=== PATIENT | female | born 1995 | race Caucasian/White ===

== ENCOUNTER 2017-08-09 10:47 | Emergency (ER) | payer OTHER ==
[~2017-08-09] VITALS: Ht 162.6 cm; Wt 66.5 kg
[2017-08-09 10:50] VITALS: TEMP 36.8; Ht 162.6 cm; Wt 66.5 kg
[2017-08-09] MEDS ORDERED: SODIUM CHLORIDE 0.9% 1000ML 500 ML IV ONE (11:00)
[2017-08-09] MEDS ORDERED: ONDANSETRON INJ 2 MG/ML 2 ML VIAL IV STA ×3 (11:00→12:37)
[2017-08-09] MEDS ORDERED: FENTANYL CITRATE INJ 50 MCG/1 ML 2 ML VIAL IV STA ×2 (11:10→12:50)
[2017-08-09] MEDS ORDERED: KETOROLAC TROMETHAMINE 30 MG/ML VIAL IV STA (11:10)
[2017-08-09 11:35] LABS: HEMATOCRIT 36.7 % (37-47); MEAN CELL VOLUME 84.4 fL (80-100); MEAN CORPUSCULAR HEMOGLOBIN 30.3 pg (25-34); PLATELET COUNT 293 K/uL (130-400); RED BLOOD COUNT 4.35 M/uL (4.2-5.4); WHITE BLOOD COUNT 10.56 K/uL (4.8-10.8)
[2017-08-09 11:52] LABS: BUN/CREATININE RATIO 14.3 (10-20); CALCIUM 10.1 mg/dl (8.5-10.1); CREATININE 0.82 mg/dl (0.60-1.20); POTASSIUM 3.6 mmol/L (3.5-5.1)
[2017-08-09 12:02] LABS: PREG INTERNAL NEGATIVE QC NEG CLEAR BACKGROUND; PREG INTERNAL POSITIVE QC POS CONTROL LINE
--- NOTE | 2017-08-09 12:14 | DIAGNOSTIC IMAGING REPORT ---
ABD/PELVIS WITHOUT FOR STONE HISTORY: 22 years-old Female flank pain acute right-sided flank pain with history of kidney stones. COMPARISON: None available. TECHNIQUE: Multiple axial CT images of the abdomen and pelvis were obtained without IV contrast utilizing kidney stone protocol. A dose lowering technique was used consistent with the principals of KIM. FINDINGS: Imaged lung bases are clear. No pneumoperitoneum identified. Imaged inferior cardiac chambers are unremarkable. There is a focal 1.1 x 1.1 cm area of low-attenuation noted involving the medial left hepatic lobe adjacent to the falciform ligament suggesting cyst or alternatively focal fatty infiltration. The spleen, gallbladder, pancreas and adrenal glands are within normal limits. Kidneys, ureters and urinary bladder are within normal limits. Uterus is unremarkable. Mildly complex 2.4 x 1.9 cm structure of the right adnexum may reflect a involuting follicle. No renal calculi or hydronephrosis identified. The abdominal aorta is normal in both course and caliber. No bulky retroperitoneal adenopathy identified. There is no bowel obstruction or focal bowel wall thickening identified. Moderate stool burden of the rectosigmoid. No evidence of acute appendicitis. Soft tissues are unremarkable. Bones appear intact. IMPRESSION: 1. 2.4 x 1.9 cm mildly complex structure of the right adnexum suggests an involuting follicle. 2. No evidence of acute appendicitis, renal calculi or hydronephrosis. The above report was generated using voice recognition software. It may contain grammatical, syntax or spelling errors. Electronically signed by: Darion Figueroa M.D. 08/09/2017 12:12 PM Dictated Date/Time: 08/09/2017 12:06 PM
[2017-08-09] MEDS ORDERED: SERT-234 PO (12:25)
[2017-08-09] MEDS ORDERED: BUSP15TA70 PO (12:25)
[2017-08-09 13:37] LABS: URINE APPEARANCE CLEAR (CLEAR); URINE BILIRUBIN NEG (NEG); URINE COLOR DK YELLOW; URINE EPITHELIAL CELL AUTO >30 /lpf (0-5); URINE NITRITE NEG (NEG); URINE PH >= 9.0 (4.5-7.5); URINE SPECIFIC GRAVITY 1.027 (1.000-1.030); UROBILINOGEN NEG (NEG); ZZUR CULT IF INDIC CLEAN CATCH NO
[2017-08-09 14:03] LABS: SULFASALICYLIC ACID NEG (NEG)
[2017-08-09 14:24] LABS: BENZODIAZEPINE, URINE POS (NEG); COCAINE,URINE NEG (NEG); PHENCYCLIDINE, URINE NEG (NEG)
[2017-08-09 14:51] LABS: MANUAL MICROSCOPIC REQUIRED? NO; REVIEW REQ? NO
[2017-08-09 15:23] VITALS: BP 127/94; PULSE 89; O2SAT 99
--- NOTE | 2017-08-09 15:29 | EMERGENCY ROOM VISIT NOTE ---
History Report prepared by Matheus: Devorah Russell Under the Supervision of: Dr. Charli Sterling D.O. First contact with patient: 11:07 Chief Complaint: KIDNEY STONE Stated Complaint: POSSIBLE KIDNEY STONE History of Present Illness The patient is a 22 year old female who presents to the Emergency Room with complaints of worsening right flank pain beginning last night. The patient has a history of kidney stones and states that this feels like her previous stones. Her most recent kidney stone was 1 month ago. The patient states that last night she developed right-sided flank pain. She rates her current pain as a 10/ 10 in severity. She is also complaining of nausea and vomiting. Mother states that the patient has "felt off" for the past couple of days. The patient is currently having her period, prior to that her LNMP was 1 month ago. Source of History: patient Onset: last night Position: other (right flank) Symptom Intensity: 10/10 Timing: worsening Associated Symptoms: + nausea, + vomiting Review of Systems See HPI for pertinent positives & negatives. A total of 10 systems reviewed and were otherwise negative. Past Medical & Surgical Medical Problems: (1) Hx of ectopic (2) Kidney stones Family History Cancer Diabetes mellitus Gallbladder disease Heart disease Hypertension Kidney disease Kidney stones Social History Smoking Status: Current Every Day Smoker Alcohol Use: none Drug Use: other Marital Status: single Housing Status: lives with family Occupation Status: unemployed Current/Historical Medications Scheduled Buspirone Hcl (Buspar), 15 MG PO BID Sertraline (Zoloft), 100 MG PO DAILY Allergies Coded Allergies: No Known Allergies (Unverified , 08/09/17) Physical Exam Vital Signs Date Time Temp Pulse Resp B/P (MAP) Pulse Ox O2 Delivery O2 Flow Rate FiO2 08/09/17 12:40 84 16 131/82 100 Room Air 08/09/17 10:50 36.8 117 22 145/36 99 Room Air Physical Exam CONSTITUTIONAL/VITAL SIGNS: Reviewed / noted above. GENERAL: Non-toxic in appearance. Expresses pain and is upset that the pain medication already provided is only making her tired but not helping her pain. INTEGUMENTARY: Warm, dry, and [place]. HEAD: Normocephalic. EYES: without scleral icterus or trauma. ENT/OROPHARYNX: clear and moist. LYMPHADENOPATHY/NECK: Is supple without lymphadenopathy or meningismus. RESPIRATORY: Lungs clear and equal. CARDIOVASCULAR: Regular rate and rhythm. GI/ABDOMEN: Soft and nontender. No organomegaly or pulsatile mass. No rebound or guarding. Normal bowel sounds. EXTREMITIES: Warm and well perfused. BACK: No CVA tenderness. NEUROLOGICAL: Intact without focal deficits. PSYCHIATRIC: normal affect. MUSCULOSKELETAL: Normally developed with good muscle tone. Medical Decision & Procedures ER Provider Diagnostic Interpretation: Radiology results as stated below per my review and radiologist interpretation: ABD/PELVIS WITHOUT FOR STONE HISTORY: 22 years-old Female flank pain acute right-sided flank pain with history of kidney stones. COMPARISON: None available. TECHNIQUE: Multiple axial CT images of the abdomen and pelvis were obtained without IV contrast utilizing kidney stone protocol. A dose lowering technique was used consistent with the principals of KIM. FINDINGS: Imaged lung bases are clear. No pneumoperitoneum identified. Imaged inferior cardiac chambers are unremarkable. There is a focal 1.1 x 1.1 cm area of low-attenuation noted involving the medial left hepatic lobe adjacent to the falciform ligament suggesting cyst or alternatively focal fatty infiltration. The spleen, gallbladder, pancreas and adrenal glands are within normal limits. Kidneys, ureters and urinary bladder are within normal limits. Uterus is unremarkable. Mildly complex 2.4 x 1.9 cm structure of the right adnexum may reflect a involuting follicle. No renal calculi or hydronephrosis identified. The abdominal aorta is normal in both course and caliber. No bulky retroperitoneal adenopathy identified. There is no bowel obstruction or focal bowel wall thickening identified. Moderate stool burden of the rectosigmoid. No evidence of acute appendicitis. Soft tissues are unremarkable. Bones appear intact. IMPRESSION: 1. 2.4 x 1.9 cm mildly complex structure of the right adnexum suggests an involuting follicle. 2. No evidence of acute appendicitis, renal calculi or hydronephrosis. The above report was generated using voice recognition software. It may contain grammatical, syntax or spelling errors. Electronically signed by: Darion Figueroa M.D. 08/09/2017 12:12 PM Dictated Date/Time: 08/09/2017 12:06 PM Laboratory Results 08/09/17 11:05 08/09/17 11:05 Test 08/09/17 11:05 08/09/17 12:40 08/09/17 14:35 Red Blood Count 4.35 M/uL (4.2-5.4) Mean Corpuscular Volume 84.4 fL (80-100) Mean Corpuscular Hemoglobin 30.3 pg (25-34) Mean Corpuscular Hemoglobin Concent 36.0 g/dl (32-36) RDW Standard Deviation 40.4 fL (36.4-46.3) RDW Coefficient of Variation 13.2 % (11.5-14.5) Mean Platelet Volume 10.0 fL (7.4-10.4) Anion Gap 12.0 mmol/L (3-11) Est Creatinine Clear Calc Drug Dose 100.1 ml/min Estimated GFR () 116.9 Estimated GFR (Non- 100.9 BUN/Creatinine Ratio 14.3 (10-20) Calcium Level 10.1 mg/dl (8.5-10.1) Human Chorionic Gonadotropin, Qual NEG (NEG) Urine Color DK YELLOW Urine Appearance CLEAR (CLEAR) Urine pH >= 9.0 (4.5-7.5) Urine Specific [place] 1.027 (1.000-1.030) Urine Protein NEG (NEG) Urine Glucose (UA) TRACE (NEG) Urine Ketones 4+ (NEG) Urine Occult Blood NEG (NEG) Urine Nitrite NEG (NEG) Urine Bilirubin NEG (NEG) Urine Urobilinogen NEG (NEG) Urine Leukocyte Esterase NEG (NEG) Urine WBC (Auto) 1-5 /hpf (0-5) Urine RBC (Auto) 0-4 /hpf (0-4) Urine Hyaline Casts (Auto) 1-5 /lpf (0-5) Urine Epithelial Cells (Auto) >30 /lpf (0-5) Urine Bacteria (Auto) NEG (NEG) Urine Opiates Screen NEG (NEG) Urine Methadone, Qualitative NEG (NEG) Urine Barbiturates NEG (NEG) Urine Phencyclidine (PCP) Level NEG (NEG) Ur Amphetamine/Methamphetamine NEG (NEG) MDMA (Ecstasy) Screen NEG (NEG) Urine Benzodiazepines Screen POS (NEG) Urine Cocaine Metabolite NEG (NEG) Urine Marijuana (THC) NEG (NEG) Ethyl Alcohol mg/dL < 3.0 mg/dl (0-3) Laboratory results as stated above per my review. Medications Administered Medications (Trade) Dose Ordered Sig/Thuan Route Start Time Stop Time Status Last Admin Dose Admin Sodium Chloride 500 ml @ 999 mls/hr Q31M ONCE IV 08/09/17 11:00 08/09/17 11:30 DC 08/09/17 11:00 999 MLS/HR Ondansetron HCl (Zofran Inj) 4 mg NOW STAT IV 08/09/17 11:00 08/09/17 11:03 DC 08/09/17 11:09 4 MG Fentanyl Citrate (Fentanyl Inj) 100 mcg NOW STAT IV 08/09/17 11:10 08/09/17 11:16 DC 08/09/17 11:24 100 MCG Ketorolac Tromethamine (Toradol Inj) 30 mg NOW STAT IV 08/09/17 11:10 08/09/17 11:16 DC 08/09/17 11:24 30 MG Ondansetron HCl (Zofran Inj) 4 mg NOW STAT IV 08/09/17 12:37 08/09/17 12:38 DC 08/09/17 12:38 4 MG Fentanyl Citrate (Fentanyl Inj) 50 mcg NOW STAT IV 08/09/17 12:50 08/09/17 12:51 DC 08/09/17 13:07 50 MCG ED Course 1107: Previous medical records were reviewed. The patient was evaluated in room C5. A complete history and physical examination was performed. 1110: Toradol 30 mg IV, Zofran 4 mg IV, Fentanyl 100 mcg IV 1125: I reassessed the patient at this time. She has had some relief with the medications. 1237: Zofran 4 mg IV 1244: I reassessed the patient and she is still having pain. She gave a urine sample. 1250: Fentanyl 50 mcg IV 1421: The patient is making suicidal statements and saying she is going to kill herself. 1423: I reevaluated the patient. She is very upset. I discussed the need for a mental health evaluation with the patient and her mother. She was relocated to room A7. 1500: The patient was signed out to Dr. Stahl at the change of shift. Medical Decision Differential considered: pancreatitis, hepatitis, or acute cholecystitis, AAA, UTI, pyelonephritis, kidney stones, appendicitis, diverticulitis, shingles, bowel obstruction mesenteric ischemia, intussusception, hernia, ovarian torsion , ruptured ovarian cyst, ectopic , . This is a 22-year-old female who presents to the ED with a chief complaint of right-sided flank pain. The patient states that her symptoms started overnight. It was associated with some nausea. The patient's currently on her last menstrual period. She recently moved to the area from [facility]. Although the history was not provided early in the patient's course, it was discovered that the patient has a history of Percocet abuse and has been to [facility] in [place]. The patient did not disclose this information earlier. She also did not disclose that she has an issue with cannabis related hyperemesis. She has been living with her mother for the past several weeks and has been clean. She sees Dr. Echols from psychiatry locally. She also sees Dr. Mejias and is involved with Alcoholics Anonymous. All this information was discovered toward the latter part of her stay. The patient was treated initially with IV Toradol, IV fluids, IV Zofran, IV Compazine and IV fentanyl. CT scan of the abdomen and pelvis reveals an involutional follicle. There is no kidney stone. This is likely not the cause for her pain. She is on her menstrual period. test was negative. Urine did not show infection. There was 4+ ketones. PRP is normal and CBC is normal. Urine tox screen is positive for benzos. The patient is currently on Xanax. The patient received a total of 1 L normal saline IV, 2 doses of IV fentanyl dose of IV Toradol. She was told the results. The patient wanted to take showers frequently during her ED stay. She took 2 showers and wanted to take some more. She states that this helps with her symptoms. The mother states that she does this is home as well. Because she was not allowed to do this more than twice, she stated that she wanted to kill herself and just wanted to . Because of this, she was moved to the mental health area and evaluated by myself for mental health reasons as well as the [facility] oil distributor. The patient denied being suicidal. She states that she just said this because she was angry. The mother also reported the patient has not been expressing any depression or suicidal ideation and has been doing well with regards to staying clean. The mother feels very comfortable taking the patient home and does not feel the patient is suicidal. After mental health evaluation , she denied everything and is currently not suicidal. She states that she said when she said because she was upset and angry. The patient's mother states that she could get the patient into see Dr. Echols tomorrow. She feels comfortable taking her home. The patient wants to go home as well. The patient was discharged. I would not recommend future narcotics for this patient. Medication Reconcilliation Current Medication List: was personally reviewed by me Blood Pressure Screening Patient's blood pressure: Normal blood pressure Impression Primary Impression: Right flank pain Additional Impression: Drug-seeking behavior Scribe Attestation The scribe's documentation has been prepared under my direction and personally reviewed by me in its entirety. I confirm that the note above accurately reflects all work, treatment, procedures, and medical decision making performed by me. Departure Information Dispostion Home / Self-Care Referrals No Doctor, Assigned (PCP) Patient Instructions My [facility] Additional Instructions Follow-up with your doctor for further care and evaluation in 1-2 days. Return to the emergency department for worsening or new symptoms or any concerns. You have been examined and treated today on an emergency basis only. This is not a substitute for, or an effort to provide, complete comprehensive medical care. It is impossible to recognize and treat all injuries or illnesses in a single emergency department visit. It is therefore important that you follow up closely with your doctor. Call as soon as possible for an appointment. Follow-up with your psychiatrist tomorrow. Problem Qualifiers
[2017-08-12 12:50] LABS: HYDROXYETHYLFLURAZEPAM CONF NEGATIVE NG/ML (CUTOFF=50); HYDROXYMIDAZOLAM NEGATIVE NG/ML (CUTOFF=50); HYDROXYTRIAZOLAM CONF NEGATIVE NG/ML (CUTOFF=50); TEMAZEPAM CONF NEGATIVE NG/ML (CUTOFF=50)
== END 2017-08-09 15:34 | disposition home or self-care (01) ==
LOC: C.EDB 10:49 → C.EDA 15:34
DX: R10.9 Unspecified abdominal pain (principal); Z72.89 Other problems related to lifestyle; R11.2 Nausea with vomiting, unspecified; Z79.899 Other long term (current) drug therapy; Z87.442 Personal history of urinary calculi; Z82.49 Family history of ischemic heart disease and other diseases of the circulatory system; Z83.3 Family history of diabetes mellitus; Z83.79 Family history of other diseases of the digestive system; Z84.1 Family history of disorders of kidney and ureter; F17.200 Nicotine dependence, unspecified, uncomplicated

== ENCOUNTER 2017-08-10 21:10 | Emergency (ER) | payer OTHER ==
[~2017-08-10] VITALS: Ht 162.6 cm; Wt 59.0 kg
[~2017-08-10 21:10] MED LIST: BUSP15TA70 PO; SERT-234 PO
[2017-08-10 21:17] VITALS: TEMP 36.8; O2SAT 98; Ht 162.6 cm; Wt 59.0 kg
[2017-08-10] MEDS ORDERED: PROCHLORPERAZINE 5 MG/ML 2 ML VIAL IV STA (22:00)
[2017-08-10] MEDS ORDERED: DiphenhydrAMINE HCL 50 MG/ML VIAL IV STA ×2 (22:00→23:45)
[2017-08-10] MEDS ORDERED: KETOROLAC TROMETHAMINE 30 MG/ML VIAL IV STA (22:00)
[2017-08-10] MEDS ORDERED: SODIUM CHLORIDE 0.9% 1000ML 1,000 ML IV ONE (22:00)
[2017-08-10 22:48] LABS: BASO % 0.2 %; BASO ABS # 0.02 K/uL (0-0.2); COMPLETE YES; HEMATOCRIT 40.3 % (37-47); IG% 0.2 %; LYMPH % 17.8 %; LYMPH ABS # 1.75 K/uL (1.2-3.4); MEAN CELL VOLUME 84.7 fL (80-100); MEAN CORPUSCULAR HEMOGLOBIN 28.4 pg (25-34); MEAN CORPUSCULAR HGB CONC 33.5 g/dl (32-36); MEAN PLATELET VOLUME 9.5 fL (7.4-10.4); MONO % 5.8 %; PLATELET COUNT 309 K/uL (130-400); RED BLOOD COUNT 4.76 M/uL (4.2-5.4); WHITE BLOOD COUNT 9.81 K/uL (4.8-10.8)
[2017-08-10 23:10] LABS: ACETAMINOPHEN < 2 ug/ml (10-30); BUN/CREATININE RATIO 10.8 (10-20); CALCIUM 9.9 mg/dl (8.5-10.1); CREATININE 1.1 mg/dl (0.60-1.20); POTASSIUM 2.8 mmol/L (3.5-5.1)
[2017-08-10 23:13] LABS: POINT OF CARE TROPONIN I < 0.030 ng/ml (0-0.045)
[2017-08-10 23:22] LABS: ALB/GLOB RATIO 1.2 (0.9-2); THYROID STIMULATING HORMONE 1.37 uIu/ml (0.300-4.500)
[2017-08-10] MEDS ORDERED: POTASSIUM CHLR 20 MEQ / WTR 20 MEQ in PREMIXED WATER 100 ML IV STA (23:31)
[2017-08-10] MEDS ORDERED: POTASSIUM CHLORIDE 10 MEQ / 100ML WTR IV STA (23:37)
[2017-08-11 00:34] LABS: URINE APPEARANCE TURBID (CLEAR); URINE BILIRUBIN NEG (NEG); URINE COLOR DK YELLOW; URINE EPITHELIAL CELL AUTO >30 /lpf (0-5); URINE NITRITE NEG (NEG); URINE PH 5.5 (4.5-7.5); UROBILINOGEN NEG (NEG); ZZUR CULT IF INDIC CLEAN CATCH NO
[2017-08-11 00:38] LABS: MANUAL MICROSCOPIC REQUIRED? NO; REVIEW REQ? YES
[2017-08-11 00:52] LABS: URINE MUCUS PRESENT (NONE PRSENT)
[2017-08-11 00:58] LABS: BENZODIAZEPINE, URINE POS (NEG); COCAINE,URINE NEG (NEG); PHENCYCLIDINE, URINE NEG (NEG)
[2017-08-11 02:52] VITALS: BP 129/86; PULSE 90; O2SAT 98
--- NOTE | 2017-08-11 05:15 | DIAGNOSTIC IMAGING REPORT ---
CHEST ONE VIEW PORTABLE CLINICAL HISTORY: 22 years-old Female presenting with Chest pain. TECHNIQUE: Portable upright AP view of the chest was obtained. COMPARISON: None. FINDINGS: Cardiomediastinal silhouette normal. Lungs and pleural spaces clear. Osseous structures normal. Upper abdomen normal. IMPRESSION: 1. No acute cardiopulmonary disease. Electronically signed by: Zuhair Telles M.D. 08/11/2017 5:14 AM Dictated Date/Time: 08/11/2017 5:13 AM
--- NOTE | 2017-08-11 22:38 | EMERGENCY ROOM VISIT NOTE ---
History First contact with patient: 21:32 Chief Complaint: CHEST PAIN Stated Complaint: CHEST PAIN Nursing Triage Summary: pt presents to B8 with mother. pt yelling "help me, mommy, please someone help me." pt restless in bed, rolling around, tearful. pt c/o midsternal chest pain and tightness that is worse with a deep breath. mother reports pt was seen here in ED yesterday and had workup including chest CT, and "everything was okay." pt saw psychiatrist today and was perscribed valium, "they thought that might help with the chest tightness." mother states pt has a hx of kidney stones, anxiety, depression, and "caniboid syndrome. she's allergic to marijuana, but she tested clean yesterday, she's not using. she's staying with us, she's been doing okay. " mother reports pt began with pain on sunday. pt also c/o feeling of "something stuck in my throat." pt making herself vomit by sticking fingers down throat. History of Present Illness The patient is a 22 year old female who presents to the Emergency Room with complaints of chest pain symptoms for the past 2-3 days. The patient states that the pain is midsternal and worsens with deep breathing. The patient was seen and evaluated yesterday in this department with similar symptoms. She had an extensive evaluation with no significant findings. The patient has a history of polypharmacy drug abuse and mental health disease. She saw a psychiatrist today and was evidently given a prescription for Valium. The patient attempted this medication without relief. She states that the only thing that makes her feel better is when she stands in a hot shower for 5 minutes, and then cold water for 5 minutes. This is effective for a very short interval, and according to the patient's mother has caused the patient to be showering upwards of 30 times per day. The patient admits to smoking marijuana in the past, but not recently. She is currently under the care of Alcoholics Anonymous and has not been drinking. Patient is considered otherwise healthy. She rates her discomfort a 10/10. Review of Systems More than 10 systems were reviewed and otherwise negative with the exception of history of present illness. Past Medical/Surgical History Medical Problems: (1) Hx of ectopic (2) Kidney stones Family History Cancer Diabetes mellitus Gallbladder disease Heart disease Hypertension Kidney disease Kidney stones Social History Smoking Status: Current Every Day Smoker Alcohol Use: none Drug Use: other Marital Status: single Housing Status: lives with family Occupation Status: unemployed Current/Historical Medications Scheduled Buspirone Hcl (Buspar), 15 MG PO BID Sertraline (Zoloft), 100 MG PO DAILY Physical Exam Vital Signs Date Time Temp Pulse Resp B/P (MAP) Pulse Ox O2 Delivery O2 Flow Rate FiO2 08/11/17 02:52 90 22 129/86 98 Room Air 08/11/17 02:25 99 22 136/80 97 Room Air 08/11/17 00:30 103 24 139/82 96 Room Air 08/10/17 22:37 103 18 117/80 100 Room Air 08/10/17 21:25 Room Air 08/10/17 21:17 98 T-piece 08/10/17 21:17 98 Room Air 08/10/17 21:17 36.8 123 20 145/87 98 Room Air Physical Exam VITALS: Vitals are noted on the nurse's note and reviewed by myself. Vital signs stable. GENERAL: Except for anxious white female who is acting child-like in the emergency department. She is mildly cooperative with the examination. EARS: External ear normal. External auditory canals clear, tympanic membranes pearly bass without erythema or effusion bilaterally. EYES: Pupils equal round and reactive to light and accommodation. Conjunctivae without injection, sclerae without icterus. Extraocular movements intact. NOSE: Patent, turbinates without inflammation or discharge. MOUTH: Mucous membranes moist. Tonsils are not enlarged. Pharynx without erythema, blood, or exudate. Uvula midline. Airway patent. NECK: Supple without nuchal rigidity. No lymphadenopathy. No thyromegaly. Cervical spine is nontender. HEART: Regular rate and rhythm without murmurs gallops or rubs. LUNGS: Clear to auscultation bilaterally without wheezes, rales or rhonchi. No retractions or accessory muscle use. CHEST WALL: Light palpation of the anterior chest wall causes exaggerated withdrawal response from the patient. ABDOMEN: Positive normal bowel sounds x 4. Firm auscultation of the abdomen does not elicit a tenderness response. Light palpation causes the patient to guard throughout limiting the examination. MUSCULOSKELETAL: No muscle atrophy, erythema, or edema noted. Full range of motion without joint tenderness in all extremities. NEURO: Patient was alert and oriented to person place and time. CN II through XII grossly intact. Medical Decision & Procedures ER Provider Diagnostic Interpretation: CHEST ONE VIEW PORTABLE CLINICAL HISTORY: 22 years-old Female presenting with Chest pain. TECHNIQUE: Portable upright AP view of the chest was obtained. COMPARISON: None. FINDINGS: Cardiomediastinal silhouette normal. Lungs and pleural spaces clear. Osseous structures normal. Upper abdomen normal. IMPRESSION: 1. No acute cardiopulmonary disease. Laboratory Results 08/10/17 22:35 Red Blood Count 4.76, Mean Corpuscular Volume 84.7, Mean Corpuscular Hemoglobin 28.4, Mean Corpuscular Hemoglobin Concent 33.5, Mean Platelet Volume 9.5, Neutrophils (%) (Auto) 76.0, Lymphocytes (%) (Auto) 17.8, Monocytes (%) (Auto) 5.8, Eosinophils (%) (Auto) 0.0, Basophils (%) (Auto) 0.2, Neutrophils # (Auto) 7.45, Lymphocytes # (Auto) 1.75, Monocytes # (Auto) 0.57, Eosinophils # (Auto) 0.00, Basophils # (Auto) 0.02 08/10/17 22:35 Test 08/10/17 22:35 08/10/17 22:55 08/11/17 00:15 White Blood Count 9.81 K/uL (4.8-10.8) Red Blood Count 4.76 M/uL (4.2-5.4) Hemoglobin 13.5 g/dL (12.0-16.0) Hematocrit 40.3 % (37-47) Mean Corpuscular Volume 84.7 fL (80-100) Mean Corpuscular Hemoglobin 28.4 pg (25-34) Mean Corpuscular Hemoglobin Concent 33.5 g/dl (32-36) Platelet Count 309 K/uL (130-400) Mean Platelet Volume 9.5 fL (7.4-10.4) Neutrophils (%) (Auto) 76.0 % Lymphocytes (%) (Auto) 17.8 % Monocytes (%) (Auto) 5.8 % Eosinophils (%) (Auto) 0.0 % Basophils (%) (Auto) 0.2 % Neutrophils # (Auto) 7.45 K/uL (1.4-6.5) Lymphocytes # (Auto) 1.75 K/uL (1.2-3.4) Monocytes # (Auto) 0.57 K/uL (0.11-0.59) Eosinophils # (Auto) 0.00 K/uL (0-0.5) Basophils # (Auto) 0.02 K/uL (0-0.2) RDW Standard Deviation 42.0 fL (36.4-46.3) RDW Coefficient of Variation 13.7 % (11.5-14.5) Immature Granulocyte % (Auto) 0.2 % Immature Granulocyte # (Auto) 0.02 K/uL (0.00-0.02) Anion Gap 12.0 mmol/L (3-11) Est Creatinine Clear Calc Drug Dose 68.7 ml/min Estimated GFR () 82.0 Estimated GFR (Non- 70.7 BUN/Creatinine Ratio 10.8 (10-20) Calcium Level 9.9 mg/dl (8.5-10.1) Total Bilirubin 0.5 mg/dl (0.2-1) Aspartate Amino Transf (AST/SGOT) 19 U/L (15-37) Alanine Aminotransferase (ALT/SGPT) 19 U/L (12-78) Alkaline Phosphatase 83 U/L (45-117) Total Protein 8.8 gm/dl (6.4-8.2) Albumin 4.8 gm/dl (3.4-5.0) Globulin 4.0 gm/dl (2.5-4.0) Albumin/Globulin Ratio 1.2 (0.9-2) Lipase 100 U/L (73-393) Thyroid Stimulating Hormone (TSH) 1.370 uIu/ml (0.300-4.500) Salicylates Level < 1.7 mg/dl (2.8-20) Acetaminophen Level < 2 ug/ml (10-30) Bedside D-Dimer 210 ng/mlFEU (0-450) Bedside Troponin I < 0.030 ng/ml (0-0.045) Urine Color DK YELLOW Urine Appearance TURBID (CLEAR) Urine pH 5.5 (4.5-7.5) Urine Specific [place] 1.030 (1.000-1.030) Urine Protein 1+ (NEG) Urine Glucose (UA) NEG (NEG) Urine Ketones TRACE (NEG) Urine Occult Blood NEG (NEG) Urine Nitrite NEG (NEG) Urine Bilirubin NEG (NEG) Urine Urobilinogen NEG (NEG) Urine Leukocyte Esterase NEG (NEG) Urine WBC (Auto) 1-5 /hpf (0-5) Urine RBC (Auto) 0-4 /hpf (0-4) Urine Hyaline Casts (Auto) 0 /lpf (0-5) Urine Epithelial Cells (Auto) >30 /lpf (0-5) Urine Bacteria (Auto) NEG (NEG) Urine Renal Epithelial Cells /lpf (0-5) Urine Crystals CALCIUM OXALATE (NONE Urine Mucus PRESENT (NONE PRSENT) Urine Test NEG (NEG) Urine Opiates Screen NEG (NEG) Urine Methadone, Qualitative NEG (NEG) Urine Barbiturates NEG (NEG) Urine Phencyclidine (PCP) Level NEG (NEG) Ur Amphetamine/Methamphetamine NEG (NEG) MDMA (Ecstasy) Screen NEG (NEG) Urine Benzodiazepines Screen POS (NEG) Urine Cocaine Metabolite NEG (NEG) Urine Marijuana (THC) NEG (NEG) Medications Administered Medications (Trade) Dose Ordered Sig/Thuan Route Start Time Stop Time Status Last Admin Dose Admin Sodium Chloride 1,000 ml @ 999 mls/hr Q1H1M ONCE IV 08/10/17 22:00 08/10/17 23:00 DC 08/10/17 22:37 999 MLS/HR Diphenhydramine HCl (Benadryl Inj) 50 mg NOW STAT IV 08/10/17 22:00 08/10/17 22:06 DC 08/10/17 22:38 50 MG Prochlorperazine Edisylate (Compazine Inj) 10 mg NOW STAT IV 08/10/17 22:00 08/10/17 22:06 DC 08/10/17 22:40 10 MG Ketorolac Tromethamine (Toradol Inj) 30 mg NOW STAT IV 08/10/17 22:00 08/10/17 22:06 DC 08/10/17 22:39 30 MG Potassium Chloride (Kcl 10 Meq / Wtr) 20 meq NOW STAT IV 08/10/17 23:37 08/10/17 23:38 DC 08/10/17 23:45 20 MEQ Diphenhydramine HCl (Benadryl Inj) 25 mg NOW STAT IV 08/10/17 23:45 08/10/17 23:47 DC 08/10/17 23:57 25 MG ED Course Physical exam and history were performed. Nursing notes, EMR, and Medication List were personally reviewed. Patient appears to have reports of chest pain for the past several days. She did have an extensive evaluation yesterday that did not show significant findings. She also had a mental health evaluation yesterday and did follow with her psychiatrist earlier today. On examination the patient's exam is limited as the patient does not allow for meaningful palpation of the chest wall or abdomen. Her response to palpation is very exaggerated, and is most consistent with a malingering type examination. The patient is requesting pain medication multiple times throughout the exam, and is trying to bargain for pain medicine in exchange for performing a better exam. I very clearly indicated the patient that I would provide her Toradol but no other pain control interventions while she was here in the department without acute findings. The patient was dissatisfied with this. I did offer mental health evaluation to the patient while she was here, and she refused twice. She was agreeable to blood work and x-ray. EKG was performed did not show acute process. The patient was hydrated with normal saline and was given IV Toradol, IV Compazine, and IV Benadryl for comfort. The patient's blood work is as above and was reviewed. She does not have a significantly elevated white blood cell count or gross anemia. Troponin and d- dimer are both negative 1. Her potassium is low and this was repleted through her IV, as she did report nausea. I continued to evaluate the patient multiple times throughout her ER stay. The patient was insistent on taking a shower here in the department, and was triaged to room B8, which has a shower within the bathroom. I do not feel comfortable allowing the patient to shower as she is a fall risk, and ultimately we had to move the patient to a separate room as she attempted to get in the shower herself. The patient was moved into room A6, and when she went to give a urine sample for her evaluation there was a bathroom with the shower in it. The patient removed her clothing and began showering without supervision. She was removed from the shower and return to her room. Overall I have concern for the patient's overall well being. Her medical exam is essentially unremarkable other than a slightly low potassium that was replaced. She certainly does not appear to have acute cardiopulmonary process to explain her symptoms. She has a very high level of anxiety, and some level of mental health disease versus drug-seeking behavior. I did engage with case management to help evaluate the patient. The patient declined mental health evaluation. The patient does not appear manic or a risk to herself. She certainly does not meet criteria for a nonvoluntary admission. She evidently has outpatient services set up with her PCP in 3 days and back with her psychiatrist in 4 days. She does have a support network at home, as the patient is living with her mother locally. Overall the patient appears stable for discharge home as she does not desire other services here. The patient needs to keep her upcoming appointments and take her medications as prescribed. She was certainly invited back to the ER with any new, worsening, or concerning symptoms. The patient was given discharge instructions as below and her discomfort was rated a 10/10 at the time of departure. The chart was completed utilizing [employer] Speech Voice Recognition Software. Grammatical errors, random word insertions, pronoun errors, and incomplete sentences are an occasional consequence of this system due to software limitations, ambient noise, and hardware issues. Any formal questions or concerns about the content, text, or information contained within the body of this dictation should be directly addressed to the provider for clarification. . Medical Decision Differential diagnosis: Etiologies such as drug seeking behavior, mental health disease, mood disorder, infection, hypoglycemia, electrolyte abnormalities, cardiac sources, intracerebral event, toxicologic, neurologic, as well as others were entertained. Impression Primary Impression: Non-cardiac chest pain Additional Impression: Anxiety Departure Information Dispostion Home / Self-Care Condition GOOD Forms HOME CARE DOCUMENTATION FORM, IMPORTANT VISIT INFORMATION Patient Instructions My [facility] Additional Instructions You were seen and evaluated today on an emergency basis only. This is not a substitute for, or an effort to provide, complete comprehensive medical care. It is not possible to recognize and treat all injuries or illnesses in a single emergency department visit. For this reason it is recommended that you followup with your primary care physician and psychiatrist in the next few days as scheduled. Continue your at-home medications as prescribed. You are welcome to return to the emergency department anytime with new, worsening, or concerning symptoms. Problem Qualifiers
[2017-08-16 00:33] LABS: HYDROXYETHYLFLURAZEPAM CONF NEGATIVE NG/ML (CUTOFF=50); HYDROXYMIDAZOLAM NEGATIVE NG/ML (CUTOFF=50); HYDROXYTRIAZOLAM CONF NEGATIVE NG/ML (CUTOFF=50); TEMAZEPAM CONF 1940 NG/ML (CUTOFF=50)
== END 2017-08-11 02:54 | disposition home or self-care (01) ==
LOC: C.EDB 21:11 → C.EDA 08-11 02:54
DX: R07.89 Other chest pain (principal); F41.9 Anxiety disorder, unspecified; Z79.899 Other long term (current) drug therapy; Z87.442 Personal history of urinary calculi; Z82.49 Family history of ischemic heart disease and other diseases of the circulatory system; Z83.3 Family history of diabetes mellitus; Z83.79 Family history of other diseases of the digestive system; Z84.1 Family history of disorders of kidney and ureter; F17.200 Nicotine dependence, unspecified, uncomplicated

== ENCOUNTER → 2017-11-07 | Outpatient (CLI) | payer OTHER ==
[~2017-11-07] MED LIST changes: +ALPR1TAB3 PO; +AMOX1TAB43 PO; +AMOX875T PO; +CTP/1 PO; +DIAZ10TA PO; +IBUP-1428 PO; +KETO10TA PO; +LDDP5 TD; +OLAN-111 PO; +POTA-639 PO; +PRLSR20 PO; +TRAZ50TA35 PO; +ZLF/100 PO
--- NOTE | 2017-11-07 18:41 | DIAGNOSTIC IMAGING REPORT ---
L ELBOW MIN 3 VIEWS ROUTINE CLINICAL HISTORY: NEEDLE BROKE OFF IN LEFT ANTECUBITAL FOSSA COMPARISON: None FINDINGS: A linear 9 mm metallic density projecting over the subcutaneous tissues of the upper aspect of the left antecubital fossa is noted. The depth of the foreign body is difficult to assess by radiography but this is approximately 1.1 cm deep to the skin. There may be adjacent soft tissue swelling. No additional radiopaque foreign bodies are identified. Alignment of the left elbow is anatomic. There is no left elbow joint effusion. There is no fracture. IMPRESSION: 9 mm linear metallic foreign body within the left antecubital fossa consistent with a needle fragment. Electronically signed by: Jordan Delgado M.D. 11/07/2017 6:40 PM Dictated Date/Time: 11/07/2017 6:37 PM
== END | disposition home or self-care (01) ==
LOC: C.RAD 18:04
PROVIDERS: ATTEND Physician Assistant Medical
DX: S50.852A Superficial foreign body of left forearm, initial encounter (principal); W27.8XXA Contact with other nonpowered hand tool, initial encounter

== ENCOUNTER 2017-11-09 10:38 | Emergency (ER) | payer OTHER ==
[~2017-11-09] VITALS: Ht 162.6 cm; Wt 54.2 kg
[~2017-11-09 10:38] MED LIST changes: -ALPR1TAB3 PO; -AMOX1TAB43 PO; -AMOX875T PO; -CTP/1 PO; -DIAZ10TA PO; -IBUP-1428 PO; -KETO10TA PO; -LDDP5 TD; -OLAN-111 PO; -POTA-639 PO; -PRLSR20 PO; -TRAZ50TA35 PO; -ZLF/100 PO
[2017-11-09 10:46] VITALS: Ht 162.6 cm; Wt 54.2 kg
[2017-11-09] MEDS ORDERED: CTP/1 PO (10:54)
[2017-11-09] MEDS ORDERED: KETO10TA PO (10:54)
[2017-11-09] MEDS ORDERED: PRLSR20 PO (10:54)
[2017-11-09] MEDS ORDERED: SODIUM CHLORIDE 0.9% 1000ML 1,000 ML IV STA (11:00)
--- NOTE | 2017-11-09 12:07 | EMERGENCY ROOM VISIT NOTE ---
History Report prepared by Matheus: Funmilayo Rodriguez Under the Supervision of: Scarlet EidO. First contact with patient: 10:52 Chief Complaint: OTHER COMPLAINT Stated Complaint: NEEDLE IN L ARM (VEIN) History of Present Illness The patient is a 22 year old female who presents to the Emergency Room with complaints of having a needle stuck in her left arm for the past month. The patient states that the needle was from IV drug use, noting she has not done any drugs for the past 3 weeks. She notes her fingers have started to be numb. The patient states that she has previously injected drugs in both arms. The patient notes a history of anxiety and an atopic in March. She notes she smokes cigarettes occasionally. Source of History: patient Onset: one month Position: arm (left) Quality: other (needle in arm) Timing: other Associated Symptoms: + numbness Review of Systems See HPI for pertinent positives & negatives. A total of 10 systems reviewed and were otherwise negative. Past Medical & Surgical Medical Problems: (1) Hx of ectopic (2) Kidney stones Family History Cancer Diabetes mellitus Gallbladder disease Heart disease Hypertension Kidney disease Kidney stones Social History Smoking Status: Current Some Day Smoker Alcohol Use: none Drug Use: other Marital Status: single Housing Status: lives with family Occupation Status: unemployed Current/Historical Medications Scheduled Amoxicillin & Pot Clavulanate (Augmentin 875-125 mg), 1 TAB PO BID Buspirone Hcl (Buspar), 15 MG PO TID Clonidine Hcl (Catapres), 0.1 MG PO TID Omeprazole (Prilosec), 20 MG PO DAILY Sertraline (Zoloft), 150 MG PO DAILY Scheduled PRN Ketorolac (Toradol), 10 MG PO Q6 PRN for Pain Allergies Coded Allergies: No Known Allergies (Unverified , 11/09/17) Physical Exam Vital Signs Date Time Temp Pulse Resp B/P (MAP) Pulse Ox O2 Delivery O2 Flow Rate FiO2 11/09/17 16:42 102 18 111/80 100 11/09/17 14:10 97 18 110/75 99 Room Air 11/09/17 12:40 93 18 93/57 97 Room Air 11/09/17 10:46 37.2 122 18 111/80 99 Room Air Physical Exam GENERAL: Patient is awake, alert, and in no acute distress. Patient is resting comfortably and showing no signs of anxiety EYES: The conjunctivae are clear. The pupils are round and reactive. EARS, NOSE, MOUTH AND THROAT: The nose is without any evidence of any deformity. Mucous membranes are moist tongue is midline NECK: The neck is nontender and supple. RESPIRATORY: Normal respiratory effort is noted there is no evidence of wheezing rhonchi or rales CARDIOVASCULAR: Regular rate and rhythm noted there no murmurs rubs or gallops normal S1 normal S2 GASTROINTESTINAL: The abdomen is soft. Bowel sounds are present in all quadrants. Abdomen is nontender MUSCULOSKELETAL/EXTREMITIES: There is no evidence of gross deformity full range of motion is noted in the hips and shoulders SKIN: Induration and ecchymosis over left AC. No erythema was appreciated. There is no obvious evidence of any rash. There are no petechiae, pallor or cyanosis noted. NEUROLOGIC: Neurovascular symmetry to median, ulnar, and radial distribution. Patient is awake alert and oriented x3 Medical Decision & Procedures ER Provider Diagnostic Interpretation: Radiology results as stated below per my review and radiologist interpretation: L EXTREMITY NONVASCULAR LIMITED CLINICAL HISTORY: 22 years-old Female presenting with FB in the LUE. TECHNIQUE: Real-time grayscale ultrasound imaging of the left upper extremity was performed for a focused examination of the antecubital fossa at the site of clinical concern. Color Doppler was also performed. COMPARISON: None. FINDINGS: A linear hyperechoic 7 mm foreign body is noted superficial to the musculature within the deep subcutaneous fat. No peripheral hyperemia. No associated fluid collection. IMPRESSION: 1. Findings consistent with retained foreign body. The report will be called/faxed according to standard departmental protocol. Electronically signed by: Zuhair Telles M.D. 11/09/2017 1:26 PM Dictated Date/Time: 11/09/2017 1:25 PM Laboratory Results 11/09/17 12:35 Red Blood Count 4.21, Mean Corpuscular Volume 85.3, Mean Corpuscular Hemoglobin 28.5, Mean Corpuscular Hemoglobin Concent 33.4, Mean Platelet Volume 9.9, Neutrophils (%) (Auto) 54.7, Lymphocytes (%) (Auto) 38.3, Monocytes (%) (Auto) 6.5, Eosinophils (%) (Auto) 0.3, Basophils (%) (Auto) 0.1, Neutrophils # (Auto) 4.27, Lymphocytes # (Auto) 2.99, Monocytes # (Auto) 0.51, Eosinophils # (Auto) 0.02, Basophils # (Auto) 0.01 11/09/17 12:35 Test 11/09/17 12:35 White Blood Count 7.81 K/uL (4.8-10.8) Red Blood Count 4.21 M/uL (4.2-5.4) Hemoglobin 12.0 g/dL (12.0-16.0) Hematocrit 35.9 % (37-47) Mean Corpuscular Volume 85.3 fL (80-100) Mean Corpuscular Hemoglobin 28.5 pg (25-34) Mean Corpuscular Hemoglobin Concent 33.4 g/dl (32-36) Platelet Count 227 K/uL (130-400) Mean Platelet Volume 9.9 fL (7.4-10.4) Neutrophils (%) (Auto) 54.7 % Lymphocytes (%) (Auto) 38.3 % Monocytes (%) (Auto) 6.5 % Eosinophils (%) (Auto) 0.3 % Basophils (%) (Auto) 0.1 % Neutrophils # (Auto) 4.27 K/uL (1.4-6.5) Lymphocytes # (Auto) 2.99 K/uL (1.2-3.4) Monocytes # (Auto) 0.51 K/uL (0.11-0.59) Eosinophils # (Auto) 0.02 K/uL (0-0.5) Basophils # (Auto) 0.01 K/uL (0-0.2) RDW Standard Deviation 44.5 fL (36.4-46.3) RDW Coefficient of Variation 14.3 % (11.5-14.5) Immature Granulocyte % (Auto) 0.1 % Immature Granulocyte # (Auto) 0.01 K/uL (0.00-0.02) Erythrocyte Sedimentation Rate 13 mm/hr (0-21) Anion Gap 7.0 mmol/L (3-11) Est Creatinine Clear Calc Drug Dose 83.2 ml/min Estimated GFR () 104.5 Estimated GFR (Non- 90.1 BUN/Creatinine Ratio 15.0 (10-20) Calcium Level 9.3 mg/dl (8.5-10.1) Total Bilirubin 0.5 mg/dl (0.2-1) Direct Bilirubin 0.1 mg/dl (0-0.2) Aspartate Amino Transf (AST/SGOT) 8 U/L (15-37) Alanine Aminotransferase (ALT/SGPT) 18 U/L (12-78) Alkaline Phosphatase 79 U/L (45-117) C-Reactive Protein < 0.29 mg/dl (0-0.29) Total Protein 7.6 gm/dl (6.4-8.2) Albumin 4.0 gm/dl (3.4-5.0) Lipase 71 U/L (73-393) Human Chorionic Gonadotropin, Qual NEG (NEG) Laboratory results per my review. Medications Administered Medications (Trade) Dose Ordered Sig/Thuan Route Start Time Stop Time Status Last Admin Dose Admin Sodium Chloride 1,000 ml @ 999 mls/hr Q1H1M STAT IV 11/09/17 11:00 11/09/17 12:00 DC 11/09/17 11:00 999 MLS/HR Lorazepam (Ativan Inj) 1 mg NOW STAT IV 11/09/17 14:13 11/09/17 14:14 DC 11/09/17 14:26 1 MG Ketorolac Tromethamine (Toradol Inj) 30 mg STK-MED ONCE .ROUTE 11/09/17 15:39 11/09/17 15:40 DC 11/09/17 15:39 15 MG ED Course 1054: The patient was evaluated in room B12. A complete history and physical examination were performed. 1100: Ordered Sodium Chloride 1000ml @ 999mls/hr IV. 1413: Ordered Ativan Inj 1mg IV. Medical Decision Prior records reviewed and summarized as above. Triage Nursing notes reviewed. The patient's history was concerning for swelling and redness of the skin. Differential diagnosis: Etiologies such as cellulitis, abscess, MRSA infection, DVT, necrotizing fasciitis, dermatitis, drug eruption, as well as others were entertained.. The patient is a 22-year-old female who presented to the emergency department for an evaluation of foreign body in the left antecubital fossa. The patient has a history of IV drug abuse. There were no signs of cellulitis but the patient was scheduled to follow-up with a surgeon. This appointment was canceled so the patient was sent to the emergency department to see a surgeon for possible incision and removal. I discussed the case with the on-call general surgeon. They've agreed to evaluate the patient in emergency department for further management and disposition. The patient was evaluated by the general surgeon in the emergency department. They were unable to locate the foreign body. CAT scan was obtained and the patient was set up for an appointment as an outpatient to have the foreign body removed. The patient was started on a course of antibiotics for the retained foreign body. She was encouraged to follow-up with the surgeon as scheduled and return to the emergency department immediately if symptoms change worsen or the need arises. Medication Reconcilliation Current Medication List: was personally reviewed by me Impression Primary Impression: Acute foreign body of left upper arm Scribe Attestation The scribe's documentation has been prepared under my direction and personally reviewed by me in its entirety. I confirm that the note above accurately reflects all work, treatment, procedures, and medical decision making performed by me. Departure Information Dispostion Being Evaluated By Surgeon Prescriptions Amoxicillin & Pot Clavulanate (Augmentin 875-125 mg) 1 Tab Tab 1 TAB PO BID, #14 TAB Prov: Luis Fernando Davison, DO 11/09/17 Referrals Orlin Zhu M.D. (PCP) Forms HOME CARE DOCUMENTATION FORM, IMPORTANT VISIT INFORMATION, WORK / SCHOOL INSTRUCTIONS Patient Instructions My [facility] Problem Qualifiers Primary Impression: Acute foreign body of left upper arm Encounter type: initial encounter Qualified Codes: S40.852A - Superficial foreign body of left upper arm, initial encounter
[2017-11-09 12:59] LABS: BASO % 0.1 %; BASO ABS # 0.01 K/uL (0-0.2); EOS % 0.3 %; EOS ABS # 0.02 K/uL (0-0.5); HEMATOCRIT 35.9 % (37-47); IG# 0.01 K/uL (0.00-0.02); LYMPH % 38.3 %; LYMPH ABS # 2.99 K/uL (1.2-3.4); MEAN CELL VOLUME 85.3 fL (80-100); MEAN CORPUSCULAR HEMOGLOBIN 28.5 pg (25-34); MEAN CORPUSCULAR HGB CONC 33.4 g/dl (32-36); MEAN PLATELET VOLUME 9.9 fL (7.4-10.4); MONO % 6.5 %; MONO ABS # 0.51 K/uL (0.11-0.59); NEUT % 54.7 %; NEUT ABS # 4.27 K/uL (1.4-6.5); PLATELET COUNT 227 K/uL (130-400); RED CELL DISTRIBUTION WIDTH CV 14.3 % (11.5-14.5); RED CELL DISTRIBUTION WIDTH SD 44.5 fL (36.4-46.3); WHITE BLOOD COUNT 7.81 K/uL (4.8-10.8)
[2017-11-09 13:16] LABS: ALT/SGPT 18 U/L (12-78); AST/SGOT 8 U/L (15-37); BLOOD UREA NITROGEN 13 mg/dl (7-18); CALCIUM 9.3 mg/dl (8.5-10.1); CARBON DIOXIDE 28 mmol/L (21-32); GLUCOSE 100 mg/dl (70-99); LIPASE 71 U/L (73-393); POTASSIUM 3.4 mmol/L (3.5-5.1); SODIUM 142 mmol/L (136-145)
[2017-11-09 13:19] LABS: ALKALINE PHOSPHATASE 79 U/L (45-117); TOTAL PROTEIN 7.6 gm/dl (6.4-8.2)
--- NOTE | 2017-11-09 13:28 | DIAGNOSTIC IMAGING REPORT ---
L EXTREMITY NONVASCULAR LIMITED CLINICAL HISTORY: 22 years-old Female presenting with FB in the LUE. TECHNIQUE: Real-time grayscale ultrasound imaging of the left upper extremity was performed for a focused examination of the antecubital fossa at the site of clinical concern. Color Doppler was also performed. COMPARISON: None. FINDINGS: A linear hyperechoic 7 mm foreign body is noted superficial to the musculature within the deep subcutaneous fat. No peripheral hyperemia. No associated fluid collection. IMPRESSION: 1. Findings consistent with retained foreign body. The report will be called/faxed according to standard departmental protocol. Electronically signed by: Zuhair Telles M.D. 11/09/2017 1:26 PM Dictated Date/Time: 11/09/2017 1:25 PM
[2017-11-09] MEDS ORDERED: LORAZEPAM 2 MG/ML 1 ML VIAL IV STA (14:13)
--- NOTE | 2017-11-09 14:54 | History and Physical: Surg Cnt ---
History & Physical Date Nov 09, 2017. (Beatriz Dangelo .ROSA) Chief Complaint needle stuck on her left arm (Beatriz Dangelo PA-C) History of Present Illness The patient is a 22 year old female who presented to emergency department today due to a needle stuck in her left arm. Jade states that she was using IV drugs and the needle broke about 1 month ago and part of the needle has been stuck in her arm since. Last used IV drugs 3 weeks ago. States she has some pain in the left elbow where the needle is. For the past few days has noticed some tingling down her arm and into her fingers. Occasional redness but has not noticed any significant swelling. Denies of this happening before. Had a fever and chills a few days ago but unsure if that was related. Xray of the elbow on 11/07/2017 showed a 9 mm linear metallic foreign body within the left antecubital fossa consistent with a needle fragment. Ultrasound of the antecubital fossa today showed a linear hyperechoic 7 mm foreign body is noted superficial to the musculature within the deep subcutaneous fat. No peripheral hyperemia. No associated fluid collection. (Beatriz Dangelo .ROSA) Past Medical/Surgical History Medical Problems: (1) Hx of ectopic (2) Kidney stones 3. Anxiety 4. Depression 5. IV Drug abuse (Beatriz Dangelo PA-C) Additional History Hepatic Disease: No Endocrine Disorder: No Kidney Disease: No Hypertension: No Heart Disease: No Bleeding Tendencies: No Infectious Diseases: No (Beatriz Dangelo PA-C) Allergies Coded Allergies: No Known Allergies (Unverified , 11/09/17) Home Medications Scheduled Amoxicillin & Pot Clavulanate (Augmentin 875-125 mg), 1 TAB PO BID Buspirone Hcl (Buspar), 15 MG PO TID Clonidine Hcl (Catapres), 0.1 MG PO TID Omeprazole (Prilosec), 20 MG PO DAILY Sertraline (Zoloft), 150 MG PO DAILY Scheduled PRN Ketorolac (Toradol), 10 MG PO Q6 PRN for Pain Physical Examination Skin: warm/dry, no rash Eyes: sclerae normal Head: normocephalic, atraumatic Neck: trachea midline Respiratory/Chest: no respiratory distress Back: normal inspection Extremities: normal inspection, + pertinent finding (There is a marking on the LUE at antecubital fossa from Ultrasound with palpable linear foreign body, no surrounding erythema, induration, fluctance, or cellulitis) Neurologic/Psych: alert, oriented x 3 (Beatriz Dangelo ., PA-C) Diagnosis 22 year-old female with retained foreign body (needle fragment from IV drug abuse) in the left antecubital fossa. No associated infection, induration or abscess collection. Now presenting with pain and tinging into fingers. (Beatriz Dangelo ., PA-C) Foreign body left antecubital fossa for 1 month. Marked by radiology. Discussed excision under local. Consent signed. Area was anesthetized with 10 cc 1% lidocaine with epinephrine. An incision was made in the site of marking and the wound explored down to muscle. No foreign body was seen or able to be palpated. The wound was irrigated and closed with a running subcuticular 4-0 vicryl suture. Sterile dressing applied. Explained need for CT scan to localize foreign body in relation to other structures (vein / artery) to allow for planning of removal. (Tatyana Parker MD) Plan of Treatment Discussed with option of bedside procedure with local anesthesia. Patient has agreed to the procedure. See below procedure note by Dr. Parker. Dr. Parker has seen and examined patient, agrees with above. (Beatriz Dangelo ., PA-C)
[2017-11-09] MEDS ORDERED: LIDOCAINE/EPINEPHRINE 1% 20 ML VIAL INFIL ONE (15:30)
[2017-11-09] MEDS ORDERED: KETOROLAC TROMETHAMINE 30 MG/ML VIAL ONE (15:39)
[2017-11-09] MEDS ORDERED: KETOROLAC TROMETHAMINE 15 MG/ML VIAL IV. ONE (15:45)
[2017-11-09] MEDS ORDERED: AMOX875T PO (16:41)
--- NOTE | 2017-11-09 16:50 | DIAGNOSTIC IMAGING REPORT ---
L UPPER EXTREMITY WITHOUT CT DOSE: 131.18 mGy.cm HISTORY: Foreign body foreign body TECHNIQUE: Multiaxial CT images of the left elbow were performed and reformatted in the sagittal and coronal plane without the use of contrast. A dose lowering technique was utilized adhering to the principles of ALARA. COMPARISON: Ultrasound same date. FINDINGS: Soft tissue edema as well as a small amount of subcutaneous air within the antecubital fossa. It is not clear whether components of this relates to post operative subcutaneous air versus an air, producing infectious process. There is regional cellulitis anterior to the musculature of the antecubital fossa. There is a metallic needle measuring 8.50 m immediately anterior to the musculature of the antecubital fossa. This is at a level immediately anterior to the humeral condyles and slightly proximal to the level of the radial head. No well-defined acute bony abnormalities appreciated. There is no drainable abscess or collection. IMPRESSION: 1. 8.5 mm metallic needle/foreign body medially anterior to the musculature of the antecubital fossa. 2. Moderate regional surrounding cellulitis of the subcutaneous tissues with several small nonspecific air bubbles as discussed above. 3. No evidence for a drainable abscess or collection. 4. This needle potentially is partially within a small associated vein and/or adjacent to the biceps tendon. The above report was generated using voice recognition software. It may contain grammatical, syntax or spelling errors. Electronically signed by: Kanu Arceo M.D. 11/09/2017 4:49 PM Dictated Date/Time: 11/09/2017 4:41 PM
[2017-11-09 17:02] VITALS: BP 111/80; PULSE 102; TEMP 37.2; O2SAT 100
[2017-11-25] MEDS ORDERED: LDDP5 TD (10:11)
[2017-11-25] MEDS ORDERED: IBUP-1428 PO (10:11)
[2017-11-25] MEDS ORDERED: AMOX1TAB43 PO (10:11)
== END 2017-11-09 17:04 | disposition home or self-care (01) ==
LOC: C.EDB 10:39
DX: M79.5 Residual foreign body in soft tissue (principal); F41.9 Anxiety disorder, unspecified; F17.210 Nicotine dependence, cigarettes, uncomplicated; F19.10 Other psychoactive substance abuse, uncomplicated; Z87.442 Personal history of urinary calculi; Z80.9 Family history of malignant neoplasm, unspecified; Z83.3 Family history of diabetes mellitus; Z82.49 Family history of ischemic heart disease and other diseases of the circulatory system; Z84.1 Family history of disorders of kidney and ureter; Z79.899 Other long term (current) drug therapy

== ENCOUNTER 2017-11-11 10:58 | Emergency (ER) | payer OTHER ==
[~2017-11-11] VITALS: Ht 162.6 cm; Wt 61.5 kg
[~2017-11-11 10:58] MED LIST changes: +AMOX875T PO; +CTP/1 PO; +KETO10TA PO; +PRLSR20 PO
[2017-11-11 11:00] VITALS: TEMP 36.5; Ht 162.6 cm; Wt 61.5 kg
[2017-11-11] MEDS ORDERED: HALOPERIDOL LACTATE 5 MG/ML 1 ML VIAL IV STA (11:12)
[2017-11-11] MEDS ORDERED: LORAZEPAM 2 MG/ML 1 ML VIAL IV STA ×2 (11:12→13:40)
--- NOTE | 2017-11-11 11:13 | EMERGENCY ROOM VISIT NOTE ---
History Report prepared by Matheus: Kennedy Angel Under the Supervision of: Dr. Luis Fernando Davison D.O. First contact with patient: 11:04 Chief Complaint: MENTAL HEALTH EVALUATION Stated Complaint: PT SLIT HER WRISTS,COMPLAINING OF CHEST PAIN History of Present Illness The patient is a 22 year old female who presents to the Emergency Room with an episode of slitting her right wrist that occurred around a half hour ago. Per the patient's mother, the patient slit her right wrist with tweezers in bath tub. The patient has been complaining of chest pain all night, and still complains of chest pain. Per the patient's mother, the patient was given 1 Ativan this morning. The patient has a history of mental health issues, and has been admitted to a hospital before for mental health issues. She just got out of rehab 3 weeks ago for heroin abuse. Per the patient's mother, the patient has been clean since then, as she has watched over the patient. The patient has not been noted to relapse on any drugs. She did have an ectopic in March. The patient has no noted history of alcohol issues. The patient notes that she has slit her wrists many times in the past. Per the nursing staff, the patient has had a needle in her arm for a month. Source of History: patient, family (mother), nursing staff Onset: Half hour ago Position: wrist (right) Symptom Intensity: history of mental health issues Quality: other (intentional slitting with tweezers) Timing: other (episode) Associated Symptoms: + chest pain Note: No other associated symptoms noted. Review of Systems See HPI for pertinent positives & negatives. A total of 10 systems reviewed and were otherwise negative. Past Medical & Surgical Medical Problems: (1) Hx of ectopic (2) Kidney stones Family History Cancer Diabetes mellitus Gallbladder disease Heart disease Hypertension Kidney disease Kidney stones Social History Smoking Status: Current Some Day Smoker Alcohol Use: none Drug Use: other Marital Status: single Housing Status: lives with family Occupation Status: unemployed Current/Historical Medications Scheduled Amoxicillin & Pot Clavulanate (Augmentin 875-125 mg), 1 TAB PO BID Buspirone Hcl (Buspar), 15 MG PO TID Clonidine Hcl (Catapres), 0.1 MG PO TID Omeprazole (Prilosec), 20 MG PO DAILY Sertraline (Zoloft), 150 MG PO DAILY Scheduled PRN Ketorolac (Toradol), 10 MG PO Q6 PRN for Pain Allergies Coded Allergies: No Known Allergies (Unverified , 11/11/17) Physical Exam Vital Signs Date Time Temp Pulse Resp B/P (MAP) Pulse Ox O2 Delivery O2 Flow Rate FiO2 11/11/17 14:34 101 18 99 Room Air 11/11/17 13:00 109 26 97 Room Air 11/11/17 11:20 120 11/11/17 11:00 36.5 139 22 128/75 97 Room Air Physical Exam GENERAL: Patient is awake, alert, very anxious appearing, hollering out about chest pain. EYES: The conjunctivae are clear. The pupils are round and reactive. EARS, NOSE, MOUTH AND THROAT: The nose is without any evidence of any deformity. Mucous membranes are moist tongue is midline NECK: The neck is nontender and supple. RESPIRATORY: Normal respiratory effort is noted there is no evidence of wheezing rhonchi or rales CARDIOVASCULAR: Regular rate and rhythm noted there no murmurs rubs or gallops normal S1 normal S2 GASTROINTESTINAL: The abdomen is soft. Bowel sounds are present in all quadrants. Abdomen is nontender MUSCULOSKELETAL/EXTREMITIES: There is no evidence of gross deformity full range of motion is noted in the hips and shoulders SKIN: There is a small abrasion to the right wrist. No active bleeding noted. NEUROLOGIC: Patient is awake alert and oriented x3 strength is symmetric patellar reflexes are 2+ bilaterally PSYCH: Patient was very anxious appearing, hollering out. Patient voiced suicidal ideation to mother. Medical Decision & Procedures ER Provider Diagnostic Interpretation: X-ray results as stated below per interpretation by me and the radiologist. CHEST ONE VIEW PORTABLE CLINICAL HISTORY: Overdose overdose COMPARISON STUDY: 08/10/2017 FINDINGS: The bones soft tissues and hemidiaphragms are normal. The cardiomediastinal silhouette is normal. The lungs are clear. The pulmonary vasculature is normal. IMPRESSION: Negative chest. The above report was generated using voice recognition software. It may contain grammatical, syntax or spelling errors. Electronically signed by: Kanu Arceo M.D. 11/11/2017 11:24 AM Dictated Date/Time: 11/11/2017 11:24 AM Laboratory Results 11/11/17 12:04 Red Blood Count 4.03, Mean Corpuscular Volume 83.6, Mean Corpuscular Hemoglobin 28.3, Mean Corpuscular Hemoglobin Concent 33.8, Mean Platelet Volume 10.1, Neutrophils (%) (Auto) 83.5, Lymphocytes (%) (Auto) 14.3, Monocytes (%) (Auto) 1.8, Eosinophils (%) (Auto) 0.0, Basophils (%) (Auto) 0.1, Neutrophils # (Auto) 6.18, Lymphocytes # (Auto) 1.06, Monocytes # (Auto) 0.13, Eosinophils # (Auto) 0.00, Basophils # (Auto) 0.01 11/11/17 12:04 Test 11/11/17 12:04 11/11/17 13:37 White Blood Count 7.40 K/uL (4.8-10.8) Red Blood Count 4.03 M/uL (4.2-5.4) Hemoglobin 11.4 g/dL (12.0-16.0) Hematocrit 33.7 % (37-47) Mean Corpuscular Volume 83.6 fL (80-100) Mean Corpuscular Hemoglobin 28.3 pg (25-34) Mean Corpuscular Hemoglobin Concent 33.8 g/dl (32-36) Platelet Count 199 K/uL (130-400) Mean Platelet Volume 10.1 fL (7.4-10.4) Neutrophils (%) (Auto) 83.5 % Lymphocytes (%) (Auto) 14.3 % Monocytes (%) (Auto) 1.8 % Eosinophils (%) (Auto) 0.0 % Basophils (%) (Auto) 0.1 % Neutrophils # (Auto) 6.18 K/uL (1.4-6.5) Lymphocytes # (Auto) 1.06 K/uL (1.2-3.4) Monocytes # (Auto) 0.13 K/uL (0.11-0.59) Eosinophils # (Auto) 0.00 K/uL (0-0.5) Basophils # (Auto) 0.01 K/uL (0-0.2) RDW Standard Deviation 42.5 fL (36.4-46.3) RDW Coefficient of Variation 13.9 % (11.5-14.5) Immature Granulocyte % (Auto) 0.3 % Immature Granulocyte # (Auto) 0.02 K/uL (0.00-0.02) Prothrombin Time 10.6 SECONDS (9.0-12.0) Prothromb Time International Ratio 1.0 (0.9-1.1) Activated Partial Thromboplast Time 21.5 SECONDS (21.0-31.0) Partial Thromboplastin Ratio 0.8 Anion Gap 11.0 mmol/L (3-11) Est Creatinine Clear Calc Drug Dose 99.5 ml/min Estimated GFR () 128.1 Estimated GFR (Non- 110.6 BUN/Creatinine Ratio 13.5 (10-20) Calcium Level 9.3 mg/dl (8.5-10.1) Total Bilirubin 0.4 mg/dl (0.2-1) Direct Bilirubin 0.1 mg/dl (0-0.2) Aspartate Amino Transf (AST/SGOT) 12 U/L (15-37) Alanine Aminotransferase (ALT/SGPT) 17 U/L (12-78) Alkaline Phosphatase 85 U/L (45-117) Total Creatine Kinase 59 U/L (26-192) Total Protein 7.8 gm/dl (6.4-8.2) Albumin 4.5 gm/dl (3.4-5.0) Lipase 76 U/L (73-393) Human Chorionic Gonadotropin, Qual NEG (NEG) Salicylates Level < 1.7 mg/dl (2.8-20) Acetaminophen Level < 2 ug/ml (10-30) Ethyl Alcohol mg/dL < 3.0 mg/dl (0-3) Urine Color DK YELLOW Urine Appearance CLOUDY (CLEAR) Urine pH 8.0 (4.5-7.5) Urine Specific [place] 1.026 (1.000-1.030) Urine Protein NEG (NEG) Urine Glucose (UA) NEG (NEG) Urine Ketones 2+ (NEG) Urine Occult Blood NEG (NEG) Urine Nitrite NEG (NEG) Urine Bilirubin NEG (NEG) Urine Urobilinogen NEG (NEG) Urine Leukocyte Esterase TRACE (NEG) Urine WBC (Auto) 1-5 /hpf (0-5) Urine RBC (Auto) 0-4 /hpf (0-4) Urine Hyaline Casts (Auto) 5-10 /lpf (0-5) Urine Epithelial Cells (Auto) >30 /lpf (0-5) Urine Bacteria (Auto) NEG (NEG) Urine Opiates Screen NEG (NEG) Urine Methadone, Qualitative NEG (NEG) Urine Barbiturates NEG (NEG) Urine Phencyclidine (PCP) Level NEG (NEG) Ur Amphetamine/Methamphetamine NEG (NEG) MDMA (Ecstasy) Screen NEG (NEG) Urine Benzodiazepines Screen POS (NEG) Urine Cocaine Metabolite NEG (NEG) Urine Marijuana (THC) NEG (NEG) Laboratory results per my review. Medications Administered Medications (Trade) Dose Ordered Sig/Thuan Route Start Time Stop Time Status Last Admin Dose Admin Lorazepam (Ativan Inj) 1 mg NOW STAT IV 11/11/17 11:12 11/11/17 11:13 DC 11/11/17 12:11 1 MG Haloperidol Lactate (Haldol Inj) 5 mg NOW STAT IV 11/11/17 11:12 11/11/17 11:13 DC 11/11/17 12:11 5 MG Haloperidol Lactate (Haldol Inj) 5 mg NOW STAT IM 11/11/17 11:20 11/11/17 11:21 DC 11/11/17 11:26 5 MG Lorazepam (Ativan Inj) 1 mg NOW STAT IM 11/11/17 11:20 11/11/17 11:21 DC 11/11/17 11:26 1 MG Lorazepam (Ativan Inj) 1 mg NOW STAT IV 11/11/17 13:40 11/11/17 13:41 DC 11/11/17 14:31 1 MG ECG Indication: chest pain Rate (beats per minute): 104 Rhythm: sinus tachycardia Findings: no ectopy, other (no acute ST segment abnormalities) Change: no significant change (from 08/10/17) ED Course 1105: The patient was evaluated in room A6. A complete history and physical examination were performed. 1112: Ordered Haldol Inj 5 mg IV, Ativan Inj 1 mg IV. 1635: I reevaluated and updated the patient. She is sleeping. Bed search is underway. The patient will be signed out to Dr. Mcnally at the end of shift. Medical Decision Differential diagnosis: Etiologies such as mood disorder, infection, hypoglycemia, electrolyte abnormalities, cardiac sources, intracerebral event, toxicologic, neurologic, as well as others were entertained. Nursing notes reviewed. The patient's previous electronic medical records reviewed. The patient is a 22-year-old female who presented to the emergency department for an evaluation of anxiety. The patient has significant anxiety and depression she also has a history of IV drug abuse. The patient has significant depression and suicidal ideation. She tried to cut her wrist prior to arrival. The patient was treated with medications for anxiety. She was reevaluated multiple times. She states that she's had similar episodes with anxiety in the past which included chest pain. The patient was medically cleared in the emergency department. She was reevaluated multiple times. She was evaluated by the mental health dependency case manager. At this time a bed search is underway. The patient was signed out to the evening physician at change of shift. Please see his note for final disposition and plan. Medication Reconcilliation Current Medication List: was personally reviewed by me Blood Pressure Screening Patient's blood pressure: Normal blood pressure Impression Primary Impression: Acute anxiety Additional Impressions: Depression Suicidal ideation Scribe Attestation The scribe's documentation has been prepared under my direction and personally reviewed by me in its entirety. I confirm that the note above accurately reflects all work, treatment, procedures, and medical decision making performed by me. Departure Information Dispostion Still a Patient (signed out to Dr. Mcnally) Referrals Orlin Zhu M.D. (PCP) Patient Instructions My [facility] Problem Qualifiers Additional Impressions: Depression Depression Type: unspecified Qualified Codes: F32.9 - Major depressive disorder, single episode, unspecified
[2017-11-11] MEDS ORDERED: HALOPERIDOL LACTATE 5 MG/ML 1 ML VIAL IM STA (11:20)
[2017-11-11] MEDS ORDERED: LORAZEPAM 2 MG/ML 1 ML VIAL IM STA (11:20)
--- NOTE | 2017-11-11 11:26 | DIAGNOSTIC IMAGING REPORT ---
CHEST ONE VIEW PORTABLE CLINICAL HISTORY: Overdose overdose COMPARISON STUDY: 08/10/2017 FINDINGS: The bones soft tissues and hemidiaphragms are normal. The cardiomediastinal silhouette is normal. The lungs are clear. The pulmonary vasculature is normal. IMPRESSION: Negative chest. The above report was generated using voice recognition software. It may contain grammatical, syntax or spelling errors. Electronically signed by: Kanu Arceo M.D. 11/11/2017 11:24 AM Dictated Date/Time: 11/11/2017 11:24 AM
[2017-11-11 12:24] LABS: BASO % 0.1 %; BASO ABS # 0.01 K/uL (0-0.2); HEMATOCRIT 33.7 % (37-47); HEMOGLOBIN 11.4 g/dL (12.0-16.0); IG# 0.02 K/uL (0.00-0.02); LYMPH % 14.3 %; LYMPH ABS # 1.06 K/uL (1.2-3.4); MEAN CELL VOLUME 83.6 fL (80-100); MEAN CORPUSCULAR HEMOGLOBIN 28.3 pg (25-34); MEAN CORPUSCULAR HGB CONC 33.8 g/dl (32-36); MEAN PLATELET VOLUME 10.1 fL (7.4-10.4); MONO % 1.8 %; MONO ABS # 0.13 K/uL (0.11-0.59); NEUT % 83.5 %; NEUT ABS # 6.18 K/uL (1.4-6.5); PLATELET COUNT 199 K/uL (130-400); RED CELL DISTRIBUTION WIDTH CV 13.9 % (11.5-14.5); RED CELL DISTRIBUTION WIDTH SD 42.5 fL (36.4-46.3)
[2017-11-11 12:32] LABS: PTT PATIENT 21.5 SECONDS (21.0-31.0)
[2017-11-11 12:47] LABS: ALBUMIN 4.5 gm/dl (3.4-5.0); CALCIUM 9.3 mg/dl (8.5-10.1); CREATININE 0.76 mg/dl (0.60-1.20); POTASSIUM 3.5 mmol/L (3.5-5.1)
[2017-11-11 12:50] LABS: TOTAL PROTEIN 7.8 gm/dl (6.4-8.2)
[2017-11-11] MEDS ORDERED: DiphenhydrAMINE HCL 50 MG/ML VIAL IV STA (18:45)
[2017-11-11] MEDS ORDERED: DiphenhydrAMINE HCL 50 MG/ML VIAL ONE (18:47)
--- NOTE | 2017-11-11 18:53 | EMERGENCY ROOM VISIT NOTE ---
ED Visit Note First contact with patient: 18:24 This patient was signed out to me pending transport to [facility] for admission. The patient asked for something for anxiety prior to transport. She had received 3 mg of Ativan and 10 mg of Haldol already. She was given 25 mg of Benadryl IV. She was transported to [place].
[2017-11-11 19:18] VITALS: BP 107/80; PULSE 84; O2SAT 97
[2017-11-19] MEDS ORDERED: POTA-639 PO (09:30)
[2017-11-25] MEDS ORDERED: LDDP5 TD (10:11)
[2017-11-25] MEDS ORDERED: IBUP-1428 PO (10:11)
[2017-11-25] MEDS ORDERED: AMOX1TAB43 PO (10:11)
== END 2017-11-11 18:43 ==
LOC: C.EDB 10:58 → C.EDA 18:43
DX: F41.9 Anxiety disorder, unspecified (principal); F32.9 Major depressive disorder, single episode, unspecified; R45.851 Suicidal ideations; Z91.5 Personal history of self-harm; F19.10 Other psychoactive substance abuse, uncomplicated; Z87.442 Personal history of urinary calculi; Z80.9 Family history of malignant neoplasm, unspecified; Z83.3 Family history of diabetes mellitus; Z83.79 Family history of other diseases of the digestive system; Z82.49 Family history of ischemic heart disease and other diseases of the circulatory system; Z84.1 Family history of disorders of kidney and ureter; F17.210 Nicotine dependence, cigarettes, uncomplicated; Z79.899 Other long term (current) drug therapy

== ENCOUNTER 2017-11-16 10:34 | Emergency (ER) | payer BC, OTHER ==
[~2017-11-16] VITALS: Ht 162.6 cm; Wt 63.8 kg
[2017-11-16 10:56] VITALS: TEMP 37; Ht 162.6 cm; Wt 63.8 kg
--- NOTE | 2017-11-16 11:25 | EMERGENCY ROOM VISIT NOTE ---
History First contact with patient: 11:01 Chief Complaint: FOREIGNBODY ANY BODY PART Stated Complaint: NEEDLE STUCK IN TENDON/INFECTION - REF BY History of Present Illness The patient is a 22 year old female who presents to the Emergency Room via private vehicle accompanied by mother with complaints of "needle stuck in tendon /infection-referred by ".The patient states that she is recovering from IV drug abuse, and over 1 month ago accidentally broke off a needle in her left antecubital fossa. She states that an attempt was made home with future remove this with local anesthetization without success. She was scheduled for evaluation by general surgery at [facility] in 1 week, however notes they called there today because of acute worsening of her pain beginning last night. She has been on Augmentin for the past week. She feels chills but no fever. She denies chance of . Review of Systems A complete 10-point Review of Systems was discussed with the patient, with pertinent positives and negatives listed in the History of Present Illness. All remaining Review of Systems questions can be considered negative unless otherwise specified. Past Medical/Surgical History Medical Problems: (1) Hx of ectopic (2) Kidney stones Family History Cancer Diabetes mellitus Gallbladder disease Heart disease Hypertension Kidney disease Kidney stones Social History Smoking Status: Former Smoker Alcohol Use: none Drug Use: other Marital Status: single Housing Status: lives with family Occupation Status: unemployed Current/Historical Medications Scheduled Amoxicillin & Pot Clavulanate (Augmentin 875-125 mg), 1 TAB PO BID Buspirone Hcl (Buspar), 15 MG PO TID Clonidine Hcl (Catapres), 0.1 MG PO TID Omeprazole (Prilosec), 20 MG PO DAILY Sertraline (Zoloft), 150 MG PO DAILY Scheduled PRN Ketorolac (Toradol), 10 MG PO Q6 PRN for Pain Physical Exam Vital Signs Date Time Temp Pulse Resp B/P (MAP) Pulse Ox O2 Delivery O2 Flow Rate FiO2 11/16/17 13:08 92 20 129/98 100 11/16/17 10:56 37.0 88 20 123/85 100 Room Air Physical Exam VITAL SIGNS - Vital signs and nursing notes were reviewed. Stable. Afebrile. GENERAL - 22-year-old female appearing her stated age who is in no acute distress. Communicates well with provider and answers questions appropriately. SKIN - there is a 1.5 cm in diameter circular slightly raised erythematous region of the left antecubital fossa. There is dried yellowish drainage without evidence of fluctuance or erythematous/lithogenic streaking. EXTREMITIES - No clubbing or peripheral cyanosis. No pretibial edema present. +5 /5 strength noted in UE/LE bilaterally. NEUROLOGIC - Cranial nerves II through XII grossly intact. Sensory intact to light touch throughout. Medical Decision & Procedures ER Provider Diagnostic Interpretation: L ELBOW MIN 3 VIEWS ROUTINE CLINICAL HISTORY: 22 years-old Female presenting with Left AC Fb. TECHNIQUE: Frontal, oblique, and lateral views of the left elbow were obtained. COMPARISON: 11/07/2017. FINDINGS: The previously noted linear radiopaque foreign body consistent with a needle fragment remains in the left antecubital fossa. No acute fracture or malalignment. No degenerative change. No radiographic soft tissue abnormality. No joint effusion. IMPRESSION: 1. Unchanged linear metallic foreign body consistent with a needle fragment in the left antecubital fossa. 2. No acute osseous injury. Electronically signed by: Zuhair Telles M.D. 11/16/2017 12:56 PM Dictated Date/Time: 11/16/2017 12:55 PM Laboratory Results Medical Decision The patient was seen and evaluated as above. Previous visit was thoroughly reviewed. She was seen here about one week ago for retained foreign body in her left and tibial fossa. This was identified through history to be what was believed to be an insulin syringe needle. This was after injecting IV drugs. There was an attempt one week ago to remove this, however after no success a follow-up in 2 weeks was arranged. She was to f/u at [facility]. This was in 1 week. Unfortunately she acutely worsen yesterday to today in regard to pain. She then called [facility] and they referred her here for further evaluation and management. On my exam there is minimal erythema and edema. No evidence of infection at this time. There is no protrusion of the foreign body. X-ray verifies this. IV access was attempted, however this was unsuccessful. She was nothing by mouth until she could be evaluated by a general surgeon here. I personally spoke with Dr. Zazueta who came to evaluate the patient. Before he was able to evaluate her, the patient became very agitated when I told her that Dr. Zazueta will be down as soon as possible to see her. SHE informed me that he is "on doctors time" and can take up to 2 hours. She informed me she is not waiting that long and will be leaving if he is not at bedside within 10 minutes. She asked I page him again. I informed her that he is very busy and will be here as soon as he can. He then came to bedside. He notes that at this time the patient should follow-up in the outpatient setting, and removing this emergently would not be warranted as it is beginning to work its way out. Patient was informed upon this. She requested discharge. She was educated upon management, educated upon worrisome symptoms which to return, had questions and provided discharge, and was discharged home in good condition to follow up with general surgery in the outpatient setting. Is important note that there is no neurovascular deficit upon my examination, no evidence of infection or emergent process. In evaluation treatment this patient following differential diagnoses were entertained: Retained foreign body, infection, among others. Impression Primary Impression: Embedded foreign body Departure Information Dispostion Home / Self-Care Condition GOOD Referrals Orlin Zhu M.D. (PCP) Patient Instructions My [facility] Additional Instructions Follow up with Dr. Parker
--- NOTE | 2017-11-16 12:58 | DIAGNOSTIC IMAGING REPORT ---
L ELBOW MIN 3 VIEWS ROUTINE CLINICAL HISTORY: 22 years-old Female presenting with Left AC Fb. TECHNIQUE: Frontal, oblique, and lateral views of the left elbow were obtained. COMPARISON: 11/07/2017. FINDINGS: The previously noted linear radiopaque foreign body consistent with a needle fragment remains in the left antecubital fossa. No acute fracture or malalignment. No degenerative change. No radiographic soft tissue abnormality. No joint effusion. IMPRESSION: 1. Unchanged linear metallic foreign body consistent with a needle fragment in the left antecubital fossa. 2. No acute osseous injury. Electronically signed by: Zuhair Telles M.D. 11/16/2017 12:56 PM Dictated Date/Time: 11/16/2017 12:55 PM
[2017-11-16 13:08] VITALS: BP 129/98; PULSE 92; O2SAT 100
--- NOTE | 2017-11-16 13:38 | Surgery Consultation ---
Consultation Date of Consultation: Nov 16, 2017. Attending Physician: Reason for Consultation: Retained foreign body History of Present Illness 22-year-old female recovering IV drug abuser presented to the ER with retained foreign body. She had a needle fragment break off her left antecubital fossa proximally 4-5 weeks ago. She has since been in rehabilitation and is no longer using. She began having some paresthesias in her left arm and hand last week and presented to the emergency department. Dr. Parker with [facility] attempted to remove the foreign object using local at the bedside. They were unsuccessful in finding the needle, and a CT scan was performed which showed the needle still retained. It appeared to be close to the biceps tendon, but superficial to the muscle structures on ultrasound. The wound was closed and she was placed on antibiotics and scheduled to follow-up with Dr. Parker next week. She called the clinic today because she had increasing pain in her surgical site starting yesterday. There was a small amount of drainage per the mother. She is still taking the Augmentin. They called [facility] surgery clinic who advised him to report to the emergency department. The patient notes that the paresthesias stopped. Patient has not eaten since last night. She states that she felt chilled yesterday and today. No documented fevers. Past Medical/Surgical History Medical Problems: (1) Acute anxiety Status: Acute (2) Acute foreign body of left upper arm Status: Acute (3) Anxiety Status: Acute (4) Depression Status: Acute (5) Drug-seeking behavior Status: Acute (6) Embedded foreign body Status: Acute (7) Non-cardiac chest pain Status: Acute (8) Right flank pain Status: Acute (9) Suicidal ideation Status: Acute Family History Cancer Diabetes mellitus Gallbladder disease Heart disease Hypertension Kidney disease Kidney stones Social History Smoking Status: Former Smoker Drug Use: other Marital Status: single Housing Status: lives with family Occupation Status: unemployed Allergies Coded Allergies: No Known Allergies (Unverified , 11/11/17) Home Medications Scheduled Amoxicillin & Pot Clavulanate (Augmentin 875-125 mg), 1 TAB PO BID Buspirone Hcl (Buspar), 15 MG PO TID Clonidine Hcl (Catapres), 0.1 MG PO TID Omeprazole (Prilosec), 20 MG PO DAILY Sertraline (Zoloft), 150 MG PO DAILY Scheduled PRN Ketorolac (Toradol), 10 MG PO Q6 PRN for Pain Review of Systems 10 point review of systems negative except as above. Physical Exam Date Time Temp Pulse Resp B/P (MAP) Pulse Ox O2 Delivery O2 Flow Rate FiO2 11/16/17 10:56 37.0 88 20 123/85 100 Room Air General Appearance: WD/WN, no apparent distress Head: normocephalic, atraumatic Eyes: normal inspection, PERRL, EOMI ENT: normal ENT inspection, hearing grossly normal, TMs normal Neck: supple, no adenopathy, thyroid normal Respiratory/Chest: chest non-tender, lungs clear, normal breath sounds Cardiovascular: regular rate, rhythm, no edema, no gallop, no murmur Abdomen/GI: normal bowel sounds, non tender, soft Back: normal inspection, no CVA tenderness, normal range of motion Extremities/Musculoskelatal: normal inspection, no calf tenderness, normal capillary refill 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 There is small amount superficial separation but no evidence of infection. It is tender to palpation directly at the surgical site which is not unexpected. There is no purulence or other drainage expressible.) Lymphatic: no adenopathy Laboratory Results L ELBOW MIN 3 VIEWS ROUTINE CLINICAL HISTORY: 22 years-old Female presenting with Left AC Fb. TECHNIQUE: Frontal, oblique, and lateral views of the left elbow were obtained. COMPARISON: 11/07/2017. FINDINGS: The previously noted linear radiopaque foreign body consistent with a needle fragment remains in the left antecubital fossa. No acute fracture or malalignment. No degenerative change. No radiographic soft tissue abnormality. No joint effusion. IMPRESSION: 1. Unchanged linear metallic foreign body consistent with a needle fragment in the left antecubital fossa. 2. No acute osseous injury. Last 24 Hours Test 11/16/17 11:45 Assessment & Plan Assessment: 22-year-old female with history of IV drug abuse now with retained needle fragment in her left antecubital fossa. Attempted excision last week in the ER, however unsuccessful. She now has a slight amount of increased pain at the site, but there is no current evidence of infection. We discussed her options to include attempted removal versus continued observation. As there is no infection and no other significant symptoms, I recommended that they continue to watch and follow up with Dr. Parker who performed initial procedure. There is no absolute indication that the foreign body needs to be removed as the patient continues to have symptoms or develops an infection at the site. Recommendations: No surgical intervention recommended at this time Follow-up with Dr. Parker Return precautions given Continue antibiotics Tylenol and NSAIDs for pain Plan of care was discussed the patient in the emergency department staff, all questions are answered, the patient expresses understanding and agrees with the plan of care as stated.
== END 2017-11-16 13:08 | disposition home or self-care (01) ==
LOC: C.EDB 10:35 → C.EDC 13:08
DX: M79.5 Residual foreign body in soft tissue (principal); W46.0XXA Contact with hypodermic needle, initial encounter; F41.9 Anxiety disorder, unspecified; F32.9 Major depressive disorder, single episode, unspecified; Z86.59 Personal history of other mental and behavioral disorders; Z87.442 Personal history of urinary calculi; Z87.891 Personal history of nicotine dependence; Z83.3 Family history of diabetes mellitus; Z82.49 Family history of ischemic heart disease and other diseases of the circulatory system; Z84.1 Family history of disorders of kidney and ureter

== ENCOUNTER 2017-11-17 17:26 | Emergency (ER) | payer BC ==
[~2017-11-17] VITALS: Ht 162.6 cm; Wt 59.1 kg
[2017-11-17] MEDS ORDERED: LORAZEPAM 1 MG TAB SL STA (17:31)
[2017-11-17] MEDS ORDERED: ONDANSETRON 4MG OD TAB PO STA (17:36)
[2017-11-17 17:43] VITALS: Ht 162.6 cm; Wt 59.1 kg
--- NOTE | 2017-11-17 17:50 | EMERGENCY ROOM VISIT NOTE ---
History Report prepared by Matheus: Geno Pearce Under the Supervision of: Dr. Mansoor Shea M.D. First contact with patient: 17:26 Chief Complaint: CHEST PAIN Stated Complaint: CHEST & ABD PAIN History of Present Illness The patient is a 22 year old female who presents to the Emergency Room with complaints of persistent chest pain starting yesterday. The patient presents to the ED by EMS. The pain is in the center of her chest. She has had this pain before and was seen in the ED. No cause was identified. She has tried taking Xanax to no significant relief. She was given Ativan in route to no relief. She is feeling anxious. She has been vomiting and is SOB. She denies any fever. She has a history of IV drug abuse. She denies any recent drug or alcohol use. She denies feeling depressed recently or any attempts to hurt herself. She denies any history of heart or lung problems, HIV, hepatitis, or any other medical problems. She denies any chance of . Source of History: patient, EMS Onset: yesterday Position: chest Quality: other (pain) Timing: other (persistent) Associated Symptoms: + SOB, + vomiting, No fevers Note: Pt reports anxiety. Review of Systems See HPI for pertinent positives & negatives. A total of 10 systems reviewed and were otherwise negative. Past Medical & Surgical Medical Problems: (1) Hx of ectopic (2) Kidney stones Old medical records were reviewed. Nurse's notes were reviewed and I agree with. Family History Cancer Diabetes mellitus Gallbladder disease Heart disease Hypertension Kidney disease Kidney stones Social History Smoking Status: Former Smoker Alcohol Use: none Drug Use: other Marital Status: single Housing Status: lives with family Occupation Status: unemployed Current/Historical Medications Scheduled Buspirone Hcl (Buspar), 15 MG PO TID Clonidine Hcl (Catapres), 0.1 MG PO TID Omeprazole (Prilosec), 20 MG PO DAILY Sertraline (Zoloft), 150 MG PO DAILY Scheduled PRN Ketorolac (Toradol), 10 MG PO Q6 PRN for Pain Allergies Coded Allergies: No Known Allergies (Unverified , 11/11/17) Physical Exam Vital Signs Date Time Temp Pulse Resp B/P (MAP) Pulse Ox O2 Delivery O2 Flow Rate FiO2 11/17/17 22:39 107 18 128/85 99 11/17/17 21:10 120 20 153/95 99 Room Air 11/17/17 19:55 110 20 139/75 98 Room Air 11/17/17 18:34 106 22 135/76 98 Room Air 11/17/17 17:47 106 11/17/17 17:43 100 Room Air 11/17/17 17:43 106 24 155/137 100 Room Air Physical Exam General: Anxious appearing young female complaining of chest pain. HEENT: Normal cephalic atraumatic. Pupils are equal round and reactive to light. Extraocular movements are intact. Oropharynx is pink with moist mucous membranes. No swelling of the mouth lips or tongue. Neck: Supple with a midline trachea. No meningeal signs or stiffness, no JVD or bruits. No Stridor. Chest: Clear to auscultation bilaterally. No wheezes or rhonchi. No increased work of breathing. Heart: regular rate and rhythm. Abdomen: Soft nontender, nondistended without rebound guarding or rigidity. Extremities: No cyanosis clubbing or edema. No calf tenderness or assymetry. Track marcelino on arm. Spine/Back. Non tender to palpation. No CVA tenderness Skin: Good turgor without rashes. Neurologic exam: Cranial nerves two through 12 are intact. Motor and sensation are intact and symmetrical throughout. Medical Decision & Procedures ER Provider Diagnostic Interpretation: X-ray results as stated below per interpretation by me and the radiologist: CHEST ONE VIEW PORTABLE CLINICAL HISTORY: Atypical chest pain COMPARISON STUDY: 11/11/2017 FINDINGS: The cardiac and mediastinal contours are normal. There is no evidence of focal pulmonary consolidation. There is no evidence of failure. No pleural effusions are visualized.[ No pneumothorax is visualized. IMPRESSION: No active disease in the chest. Electronically signed by: Tab Trinh M.D. 11/17/2017 6:15 PM Dictated Date/Time: 11/17/2017 6:14 PM Laboratory Results 11/17/17 18:00 Red Blood Count 4.80, Mean Corpuscular Volume 84.4, Mean Corpuscular Hemoglobin 28.5, Mean Corpuscular Hemoglobin Concent 33.8, Mean Platelet Volume 9.9, Neutrophils (%) (Auto) 63.7, Lymphocytes (%) (Auto) 29.6, Monocytes (%) (Auto) 6.5, Eosinophils (%) (Auto) 0.0, Basophils (%) (Auto) 0.1, Neutrophils # (Auto) 5.74, Lymphocytes # (Auto) 2.67, Monocytes # (Auto) 0.59, Eosinophils # (Auto) 0.00, Basophils # (Auto) 0.01 11/17/17 18:00 Test 11/17/17 18:00 11/17/17 18:34 White Blood Count 9.02 K/uL (4.8-10.8) Red Blood Count 4.80 M/uL (4.2-5.4) Hemoglobin 13.7 g/dL (12.0-16.0) Hematocrit 40.5 % (37-47) Mean Corpuscular Volume 84.4 fL (80-100) Mean Corpuscular Hemoglobin 28.5 pg (25-34) Mean Corpuscular Hemoglobin Concent 33.8 g/dl (32-36) Platelet Count 230 K/uL (130-400) Mean Platelet Volume 9.9 fL (7.4-10.4) Neutrophils (%) (Auto) 63.7 % Lymphocytes (%) (Auto) 29.6 % Monocytes (%) (Auto) 6.5 % Eosinophils (%) (Auto) 0.0 % Basophils (%) (Auto) 0.1 % Neutrophils # (Auto) 5.74 K/uL (1.4-6.5) Lymphocytes # (Auto) 2.67 K/uL (1.2-3.4) Monocytes # (Auto) 0.59 K/uL (0.11-0.59) Eosinophils # (Auto) 0.00 K/uL (0-0.5) Basophils # (Auto) 0.01 K/uL (0-0.2) RDW Standard Deviation 45.5 fL (36.4-46.3) RDW Coefficient of Variation 14.7 % (11.5-14.5) Immature Granulocyte % (Auto) 0.1 % Immature Granulocyte # (Auto) 0.01 K/uL (0.00-0.02) Anion Gap 14.0 mmol/L (3-11) Est Creatinine Clear Calc Drug Dose 99.5 ml/min Estimated GFR () 128.1 Estimated GFR (Non- 110.6 BUN/Creatinine Ratio 9.4 (10-20) Calcium Level 9.6 mg/dl (8.5-10.1) Total Bilirubin 0.5 mg/dl (0.2-1) Direct Bilirubin 0.1 mg/dl (0-0.2) Aspartate Amino Transf (AST/SGOT) 15 U/L (15-37) Alanine Aminotransferase (ALT/SGPT) 32 U/L (12-78) Alkaline Phosphatase 89 U/L (45-117) Troponin I < 0.015 ng/ml (0-0.045) Total Protein 9.0 gm/dl (6.4-8.2) Albumin 4.8 gm/dl (3.4-5.0) Lipase 86 U/L (73-393) Human Chorionic Gonadotropin, Qual NEG (NEG) Salicylates Level < 1.7 mg/dl (2.8-20) Acetaminophen Level < 2 ug/ml (10-30) Ethyl Alcohol mg/dL < 3.0 mg/dl (0-3) Urine Opiates Screen POS (NEG) Urine Methadone, Qualitative NEG (NEG) Urine Barbiturates NEG (NEG) Urine Phencyclidine (PCP) Level NEG (NEG) Ur Amphetamine/Methamphetamine NEG (NEG) MDMA (Ecstasy) Screen NEG (NEG) Urine Benzodiazepines Screen POS (NEG) Urine Cocaine Metabolite NEG (NEG) Urine Marijuana (THC) NEG (NEG) Laboratory studies as stated above per my review. Medications Administered Medications (Trade) Dose Ordered Sig/Thuan Route Start Time Stop Time Status Last Admin Dose Admin Ondansetron HCl (Zofran Odt) 4 mg NOW STAT PO 11/17/17 17:36 11/17/17 17:37 DC 11/17/17 17:40 4 MG Lorazepam (Ativan Inj) 1 mg NOW STAT IV 11/17/17 18:01 11/17/17 18:02 DC 11/17/17 18:07 1 MG Ketorolac Tromethamine (Toradol Inj) 30 mg NOW STAT IV 11/17/17 18:17 11/17/17 18:18 DC 11/17/17 18:23 30 MG Lorazepam (Ativan Inj) 1 mg NOW STAT IV 11/17/17 19:45 11/17/17 19:46 DC 11/17/17 19:55 1 MG Morphine Sulfate (MoRPHine SULFATE INJ) 4 mg NOW STAT IV 11/17/17 20:57 11/17/17 20:58 DC 11/17/17 21:05 4 MG Ondansetron HCl (ZOFRAN ODT 4MG Home Pack) 1 homepack UD ONCE PO 11/17/17 21:45 11/17/17 21:46 DC 11/17/17 21:54 1 HOMEPACK ECG Indication: chest pain Rate (beats per minute): 107 Rhythm: sinus tachycardia Findings: no acute ischemic change, no ectopy, other (poor baseline) Comparison ECG Date: 11-Nov-2017 Change: no significant change ED Course 1727: Past medical records reviewed. The patient was evaluated in room A12B, and a complete history and physical examination were performed. 173: Lorazepam 1 mg SL. 173: Ondansetron HCl 4 mg PO. 1800: I reevaluated the patient. IV team has established the IV. 180: Lorazepam 1 mg IV. 1812: I reevaluated the patient. 1816: Toradol Inj 30 mg IV. 1821: I informed the psychiatric shelter case manager of the patient. 1942: I reevaluated the patient. She appears more comfortable. She is requesting more Ativan. She has been medically cleared for psych evaluation. 1944: Lorazepam 1 mg IV. 2029: The psych shelter case manager has evaluated the patient and talked to her mother. He does not feel that the patient is a danger to herself. 2038: I reevaluated the patient. 2056: Morphine Sulfate 4 mg IV. 2057: I reevaluated the patient. I discussed the results and treatment plan with her. The patient will be discharged home. 2144: Ondansetron HCl 1 homepack PO. 2151: I reevaluated the patient. I spoke with her mother who has now arrived. I discussed the results and treatment plan with her. She is requesting mental health admission. I asked the mental health team to see the patient. 2216: I reevaluated the patient. The psych shelter case manager has evaluated the patient again. She will be discharged home. Medical Decision Differentials include, but are not limited to; anxiety, overdose, drug use, depression, cardiac disease, pulmonary disease. This patient comes in as described above. She was placed in room A12. She is complaining of chest pain. She does have a history of chest pain and anxiety mental health issues .she also has a history of heroin abuse but says she's been clean for several weeks. She was given Ativan IM on route. I did give paramedics ALS command for this and talk to the paramedics on the radio She appears very anxious. I did order additional Ativan and Zofran and she says she 's been nauseated. Blood work was ordered as well as an IV an EKG. She was evaluated for medical as well as mental health standpoint. She was given additional Ativan 1 mg IV as well as Zofran oral ODT. She is requesting something for pain and was given Toradol 30 mg IV. With these measures she seemed to be calming down. Her EKG does not suggest acute coronary syndrome or arrhythmia. Troponin is not elevated. Her symptoms are very atypical for cardiac disease. Chest x-ray was unremarkable and shows nothing to suggest congestive heart failure pneumonia or pneumothorax. She's had no fever or white count to suggest infection. She is not anemic. Her test is negative. Her symptoms are very unlikely related to aortic or PE pathology given her clinical presentation and risk factors. I think most likely this is related to anxiety she says she's had this multiple times before been seen at several different hospitals and says they can never find any problems with her. Her workup here was unremarkable. She seems more calm but did ask for more Ativan as well as pain medicine. I declined to give her any pain medication given her history of narcotic abuse but did give her an extra dose of Ativan IV. I did have her mental health team evaluate her in the emergency department and they talked to the mother and they did not feel that she needed to be admitted. She was waiting for mom to pick her up and started screaming and saying that she was in pain. I did give her 1 dose of IV morphine, she does have significant drug-seeking type behavior I think and this has been documented before. I told her that she will not get any more narcotics here. Mother did arrive and ask about a mental health admission possibly had Trevor, our psych shelter case manager go back in and talked to mom as well. The patient does not want to stay for mental health standpoint and she does not want to do inpatient rehabilitation. She was given Zofran if needed for nausea and I think this is all anxiety related. Her mother tells me she's had this multiple times and workups have all been negative. She will be discharged to home and encouraged to follow up with her regular doctor Sunday for recheck Medication Reconcilliation Current Medication List: was personally reviewed by me Blood Pressure Screening Patient's blood pressure: Elevated blood pressure Blood pressure disposition: Elevated BP felt to be situational Impression Primary Impression: Chest pain Additional Impression: Anxiety Scribe Attestation The scribe's documentation has been prepared under my direction and personally reviewed by me in its entirety. I confirm that the note above accurately reflects all work, treatment, procedures, and medical decision making performed by me. Departure Information Dispostion Home / Self-Care Referrals Orlin Zhu M.D. (PCP) Forms HOME CARE DOCUMENTATION FORM, IMPORTANT VISIT INFORMATION Patient Instructions My [facility] [address] Additional Instructions Rest. Return if: Thoughts of hurting yourself or others, any new problems or concerns , increasing pain Use ibuprofen 400 mg every 6 hours, take with food Continue use your medication for anxiety. Problem Qualifiers
[2017-11-17] MEDS ORDERED: LORAZEPAM 2 MG/ML 1 ML VIAL IV STA ×2 (18:01→19:45)
[2017-11-17] MEDS ORDERED: LORAZEPAM 2 MG/ML 1 ML VIAL ONE (18:05)
--- NOTE | 2017-11-17 18:16 | DIAGNOSTIC IMAGING REPORT ---
CHEST ONE VIEW PORTABLE CLINICAL HISTORY: Atypical chest pain COMPARISON STUDY: 11/11/2017 FINDINGS: The cardiac and mediastinal contours are normal. There is no evidence of focal pulmonary consolidation. There is no evidence of failure. No pleural effusions are visualized.[ No pneumothorax is visualized. IMPRESSION: No active disease in the chest. Electronically signed by: Tab Trinh M.D. 11/17/2017 6:15 PM Dictated Date/Time: 11/17/2017 6:14 PM
[2017-11-17] MEDS ORDERED: KETOROLAC TROMETHAMINE 30 MG/ML VIAL IV STA (18:17)
[2017-11-17 18:28] LABS: BASO % 0.1 %; BASO ABS # 0.01 K/uL (0-0.2); HEMATOCRIT 40.5 % (37-47); HEMOGLOBIN 13.7 g/dL (12.0-16.0); IG# 0.01 K/uL (0.00-0.02); LYMPH % 29.6 %; LYMPH ABS # 2.67 K/uL (1.2-3.4); MEAN CELL VOLUME 84.4 fL (80-100); MEAN CORPUSCULAR HEMOGLOBIN 28.5 pg (25-34); MEAN CORPUSCULAR HGB CONC 33.8 g/dl (32-36); MEAN PLATELET VOLUME 9.9 fL (7.4-10.4); MONO % 6.5 %; MONO ABS # 0.59 K/uL (0.11-0.59); NEUT % 63.7 %; NEUT ABS # 5.74 K/uL (1.4-6.5); PLATELET COUNT 230 K/uL (130-400); RED CELL DISTRIBUTION WIDTH CV 14.7 % (11.5-14.5); RED CELL DISTRIBUTION WIDTH SD 45.5 fL (36.4-46.3); WHITE BLOOD COUNT 9.02 K/uL (4.8-10.8)
[2017-11-17 19:24] LABS: ALBUMIN 4.8 gm/dl (3.4-5.0); ALKALINE PHOSPHATASE 89 U/L (45-117); ALT/SGPT 32 U/L (12-78); AST/SGOT 15 U/L (15-37); BLOOD UREA NITROGEN 7 mg/dl (7-18); CALCIUM 9.6 mg/dl (8.5-10.1); CARBON DIOXIDE 22 mmol/L (21-32); CREATININE 0.76 mg/dl (0.60-1.20); GLUCOSE 94 mg/dl (70-99); LIPASE 86 U/L (73-393); SODIUM 141 mmol/L (136-145)
[2017-11-17] MEDS ORDERED: MoRPHine SULFATE 4 MG/ML 1 ML CARP\\VIAL IV STA (20:57)
[2017-11-17] MEDS ORDERED: ONDANSETRON HOME PACK 4MG OD TAB PO ONE (21:45)
[2017-11-17 22:39] VITALS: BP 128/85; PULSE 107; O2SAT 99
== END 2017-11-17 22:41 | disposition home or self-care (01) ==
LOC: EDBD 17:26 → C.EDA 17:27
DX: R07.9 Chest pain, unspecified (principal); F41.9 Anxiety disorder, unspecified; R00.0 Tachycardia, unspecified; Z87.442 Personal history of urinary calculi; Z87.891 Personal history of nicotine dependence; Z79.899 Other long term (current) drug therapy; Z80.9 Family history of malignant neoplasm, unspecified; Z83.3 Family history of diabetes mellitus; Z83.79 Family history of other diseases of the digestive system; Z82.49 Family history of ischemic heart disease and other diseases of the circulatory system; Z84.1 Family history of disorders of kidney and ureter

== ENCOUNTER 2017-11-18 11:48 | Inpatient (IN) | payer BC ==
[~2017-11-18] VITALS: Ht 162.6 cm; Wt 60.6 kg
[~2017-11-18 11:48] MED LIST changes: -AMOX875T PO
[2017-11-18] MEDS ORDERED: ONDANSETRON INJ 2 MG/ML 2 ML VIAL IV STA (12:07)
[2017-11-18] MEDS ORDERED: ACETAMINOPHEN 500 MG TAB PO STA (12:07)
[2017-11-18] MEDS ORDERED: KETOROLAC TROMETHAMINE 60 MG/2 ML VIAL IM STA (12:07)
--- NOTE | 2017-11-18 12:11 | EMERGENCY ROOM VISIT NOTE ---
History Report prepared by Matheus: Jhonathan Cheng Under the Supervision of: Dr. David Ley M.D. First contact with patient: 11:55 Chief Complaint: OTHER COMPLAINT Stated Complaint: CHEST/KIDNEY PAIN History of Present Illness The patient is a 22 year old white female with a past medical history of kidney stones and heroin use who presents to the ED with a cc of worsening, sharp, central chest pain beginning three days ago. Positive nausea, vomiting, lower back pain. Negative urinary symptoms, taking anything for pain, recent falls, hurting herself, recent surgeries, changes in medication, and still using heroin. LNMP was three weeks ago. Pt stopped using heroin two months ago. Review of EMR shows the patient was evaluated yesterday and two days before that. Source of History: patient Onset: three days ago Position: chest (central) Quality: sharp Timing: worsening Associated Symptoms: + nausea, + vomiting, + back pain Note: Denies: recent falls, taking anything for pain, recent surgeries Review of Systems See HPI for pertinent positives and negatives. A total of ten systems were reviewed and were otherwise negative. Past Medical & Surgical Medical Problems: (1) Heroin use (2) Hx of ectopic (3) Kidney stones Family History Cancer Diabetes mellitus Gallbladder disease Heart disease Hypertension Kidney disease Kidney stones Social History Smoking Status: Current Some Day Smoker Alcohol Use: none Drug Use: other Marital Status: single Housing Status: lives with family Occupation Status: unemployed Current/Historical Medications Scheduled Buspirone Hcl (Buspar), 15 MG PO TID Clonidine Hcl (Catapres), 0.1 MG PO TID Omeprazole (Prilosec), 20 MG PO DAILY Sertraline (Zoloft), 150 MG PO DAILY Scheduled PRN Ketorolac (Toradol), 10 MG PO Q6 PRN for Pain Allergies Coded Allergies: No Known Allergies (Unverified , 11/11/17) Physical Exam Vital Signs Date Time Temp Pulse Resp B/P (MAP) Pulse Ox O2 Delivery O2 Flow Rate FiO2 11/18/17 16:40 98 16 112/69 100 Room Air 11/18/17 14:02 130 18 108/65 97 Room Air 11/18/17 12:37 122 11/18/17 12:37 99 Room Air 11/18/17 12:37 103 18 132/86 98 Room Air 11/18/17 11:52 36.7 147 16 136/111 97 Room Air Physical Exam GENERAL: Awake, alert, uncomfortable-appearing, mild distress. HENT: Normocephalic, atraumatic. EYES: Normal conjunctiva. Sclera non-icteric. NECK: Supple. No nuchal rigidity. FROM. RESPIRATORY: CTAB, no rhonchi, wheezing, crackles CARDIAC: Tachy and regular, no MRG ABDOMEN: Soft, NTND, BS+ MSK: No chest wall TTP, no LE edema. Right lower buttock pain with no erythema, swelling, or calor. NEURO: GCS 15, CN 2-12 intact, moves all 4s on command SKIN: No rash or jaundice noted. Medical Decision & Procedures Laboratory Results 11/18/17 12:17 Red Blood Count 4.78, Mean Corpuscular Volume 86.6, Mean Corpuscular Hemoglobin 28.0, Mean Corpuscular Hemoglobin Concent 32.4, Mean Platelet Volume 10.0, Neutrophils (%) (Auto) 71.4, Lymphocytes (%) (Auto) 23.9, Monocytes (%) (Auto) 4.1, Eosinophils (%) (Auto) 0.4, Basophils (%) (Auto) 0.1, Neutrophils # (Auto) 5.93, Lymphocytes # (Auto) 1.99, Monocytes # (Auto) 0.34, Eosinophils # (Auto) 0.03, Basophils # (Auto) 0.01 11/18/17 12:17 Test 11/18/17 12:17 11/18/17 14:20 11/18/17 16:20 White Blood Count 8.31 K/uL (4.8-10.8) Red Blood Count 4.78 M/uL (4.2-5.4) Hemoglobin 13.4 g/dL (12.0-16.0) Hematocrit 41.4 % (37-47) Mean Corpuscular Volume 86.6 fL (80-100) Mean Corpuscular Hemoglobin 28.0 pg (25-34) Mean Corpuscular Hemoglobin Concent 32.4 g/dl (32-36) Platelet Count 210 K/uL (130-400) Mean Platelet Volume 10.0 fL (7.4-10.4) Neutrophils (%) (Auto) 71.4 % Lymphocytes (%) (Auto) 23.9 % Monocytes (%) (Auto) 4.1 % Eosinophils (%) (Auto) 0.4 % Basophils (%) (Auto) 0.1 % Neutrophils # (Auto) 5.93 K/uL (1.4-6.5) Lymphocytes # (Auto) 1.99 K/uL (1.2-3.4) Monocytes # (Auto) 0.34 K/uL (0.11-0.59) Eosinophils # (Auto) 0.03 K/uL (0-0.5) Basophils # (Auto) 0.01 K/uL (0-0.2) RDW Standard Deviation 48.3 fL (36.4-46.3) RDW Coefficient of Variation 15.2 % (11.5-14.5) Immature Granulocyte % (Auto) 0.1 % Immature Granulocyte # (Auto) 0.01 K/uL (0.00-0.02) Prothrombin Time 10.7 SECONDS (9.0-12.0) Prothromb Time International Ratio 1.0 (0.9-1.1) Activated Partial Thromboplast Time 22.4 SECONDS (21.0-31.0) Partial Thromboplastin Ratio 0.9 Anion Gap 8.0 mmol/L (3-11) Est Creatinine Clear Calc Drug Dose 74.1 ml/min Estimated GFR () 89.8 Estimated GFR (Non- 77.5 BUN/Creatinine Ratio 13.0 (10-20) Calcium Level 10.4 mg/dl (8.5-10.1) Troponin I < 0.015 ng/ml (0-0.045) Human Chorionic Gonadotropin, Qual NEG (NEG) Salicylates Level < 1.7 mg/dl (2.8-20) Acetaminophen Level < 2 ug/ml (10-30) Ethyl Alcohol mg/dL < 3.0 mg/dl (0-3) Urine Color DK YELLOW Urine Appearance TURBID (CLEAR) Urine pH 5.5 (4.5-7.5) Urine Specific Arcade 1.030 (1.000-1.030) Urine Protein TRACE (NEG) Urine Glucose (UA) NEG (NEG) Urine Ketones TRACE (NEG) Urine Occult Blood NEG (NEG) Urine Nitrite NEG (NEG) Urine Bilirubin NEG (NEG) Urine Urobilinogen NEG (NEG) Urine Leukocyte Esterase TRACE (NEG) Urine WBC (Auto) 5-10 /hpf (0-5) Urine RBC (Auto) 0-4 /hpf (0-4) Urine Hyaline Casts (Auto) 10-30 /lpf (0-5) Urine Epithelial Cells (Auto) >30 /lpf (0-5) Urine Bacteria (Auto) NEG (NEG) Urine Renal Epithelial Cells /lpf (0-5) Urine Crystals CALCIUM OXALATE (NONE Urine Test NEG (NEG) Urine Opiates Screen POS (NEG) Urine Methadone, Qualitative NEG (NEG) Urine Barbiturates NEG (NEG) Urine Phencyclidine (PCP) Level NEG (NEG) Ur Amphetamine/Methamphetamine NEG (NEG) MDMA (Ecstasy) Screen POS (NEG) Urine Benzodiazepines Screen POS (NEG) Urine Cocaine Metabolite NEG (NEG) Urine Marijuana (THC) NEG (NEG) Laboratory results reviewed by me Medications Administered Medications (Trade) Dose Ordered Sig/Thuan Route Start Time Stop Time Status Last Admin Dose Admin Ketorolac Tromethamine (Toradol Inj) 60 mg NOW STAT IM 11/18/17 12:07 11/18/17 12:08 DC 11/18/17 12:31 60 MG Fentanyl Citrate (Fentanyl Inj) 50 mcg NOW ONCE IM 11/18/17 12:15 11/18/17 12:16 DC 11/18/17 12:32 50 MCG Ondansetron HCl (Zofran Odt) 4 mg NOW STAT PO 11/18/17 12:14 11/18/17 12:15 DC 11/18/17 12:31 4 MG Lorazepam (Ativan Tab) 1 mg NOW STAT PO 11/18/17 17:00 11/18/17 17:01 DC 11/18/17 17:02 1 MG Lorazepam (Ativan Inj) 2 mg NOW STAT IM 11/18/17 17:52 11/18/17 17:53 DC 11/18/17 18:04 2 MG Haloperidol Lactate (Haldol Inj) 5 mg NOW STAT IM 11/18/17 17:52 11/18/17 17:53 DC 11/18/17 18:04 5 MG ECG Indication: chest pain Rate (beats per minute): 125 Rhythm: sinus tachycardia Findings: other (Normal axis, normal intervals, no STS changes or TWI) ED Course 1202: The patient was evaluated in room B06. A complete history and physical exam was performed. 1301: The patient refused her chest x-ray. 1351: The patient was evaluated by psychiatric case management because of her self injurious behavior yesterday. She states "I am going to stab myself to take my pain away." 1404: I filled out the petitioning statement. 1536: Ted gamboa signed the 302 warrant, and I filled out the necessary paperwork. 1633: The patient was moved to room A08. 1751: The patient will was accepted by [facility]. Medical Decision The patient is a 22 year old white female with a past medical history of kidney stones and heroin use who presents to the ED with a cc of worsening, sharp, central chest pain beginning three days ago. Differential diagnosis: Etiologies such as cardiac ischemia, aortic dissection, pulmonary embolism, pneumonia, pneumothorax, musculoskeletal, infections, pericarditis, myocarditis , esophageal rupture, gastrointestinal, as well as others were entertained. Patient was seen and evaluated the bedside. Patient does have a history of IV drug abuse and the patient is complaining of chest pain. Patient states it is central and sharp. Patient denies any recent trauma. Patient has been seen twice in the last week. Patient does have a retained foreign body or minutes consistent with a prior needle. Patient is to follow-up with Dr. Parker for this issue. Patient was also complaining of some back pain. Patient point to her right buttock which doesn't show any skin changes. Patient is uncomfortable initially on exam. Patient was seen here yesterday for chest pain and had a negative workup and was discharged. Patient did have blood work , EKG, troponin, chest x-ray and medications were also given for symptom medic treatment. Patient also had a urinalysis and urine test performed. Patient LMP was 3 weeks prior. Patient did decline a chest x-ray. Patient's EKG did show sinus tach without any ischemic changes. Patient with blood cell count normal patient does have a stable H&H. Patient troponin negative. Patient urinalysis negative for infection and UPT was negative for . Patient was feeling mildly improved. Given the patient's normal kidney function patient was told she may follow up as an outpatient. Patient was deemed suitable for outpatient follow-up and treatment. Patient did initially have tachycardia but I believe this likely related to pain. Do not believe she has ACS the patient is now been seen in 2 subsequent days with nonischemic EKGs and negative troponins. Was concerned after case management did go and speak to the patient patient was stating that she would injure herself by stabbing herself in the stomach and return to be taking more seriously with regard to her chest pains. I do not believe that the chest pains or organic. The patient was evaluated by can help any 302 petition statement was issued. Patient was an involuntary admission at this time. Patient had a negative urine drug screen, toxic screen and had a undetectable beta hCG. Patient was otherwise medically cleared for admission although TSH was added and patient was given medications to help with her agitation. Medication Reconcilliation Current Medication List: was personally reviewed by me Blood Pressure Screening Patient's blood pressure: Normal blood pressure Blood pressure disposition: Did not require urgent referral Impression Primary Impression: Non-cardiac chest pain Additional Impressions: Self-injurious behavior Agitation requiring sedation protocol Critical Care I have personally spent greater than 35 minutes of critical care time in the direct management of this patient. This includes bedside care, interpretation of diagnostic studies, and testing, discussion with consultants, patient, and family members, and other required patient management activities. This 35 minutes is in excess of all separately billable procedures. Scribe Attestation The scribe's documentation has been prepared under my direction and personally reviewed by me in its entirety. I confirm that the note above accurately reflects all work, treatment, procedures, and medical decision making performed by me. Departure Information Dispostion [facility] Acute Care Referrals Orlin Zhu M.D. (PCP) Patient Instructions My [facility] Problem Qualifiers
[2017-11-18] MEDS ORDERED: ONDANSETRON 4MG OD TAB PO STA (12:14)
[2017-11-18] MEDS ORDERED: FENTANYL CITRATE INJ 50 MCG/1 ML 2 ML VIAL IM ONE (12:15)
[2017-11-18 12:37] VITALS: O2SAT 99
[2017-11-18 12:57] LABS: BASO % 0.1 %; BASO ABS # 0.01 K/uL (0-0.2); EOS % 0.4 %; EOS ABS # 0.03 K/uL (0-0.5); HEMATOCRIT 41.4 % (37-47); HEMOGLOBIN 13.4 g/dL (12.0-16.0); IG# 0.01 K/uL (0.00-0.02); LYMPH % 23.9 %; LYMPH ABS # 1.99 K/uL (1.2-3.4); MEAN CELL VOLUME 86.6 fL (80-100); MEAN CORPUSCULAR HGB CONC 32.4 g/dl (32-36); MONO % 4.1 %; MONO ABS # 0.34 K/uL (0.11-0.59); NEUT % 71.4 %; NEUT ABS # 5.93 K/uL (1.4-6.5); PLATELET COUNT 210 K/uL (130-400); RED CELL DISTRIBUTION WIDTH CV 15.2 % (11.5-14.5); RED CELL DISTRIBUTION WIDTH SD 48.3 fL (36.4-46.3); WHITE BLOOD COUNT 8.31 K/uL (4.8-10.8)
[2017-11-18 13:10] LABS: CALCIUM 10.4 mg/dl (8.5-10.1); CARBON DIOXIDE 27 mmol/L (21-32); CREATININE 1.02 mg/dl (0.60-1.20); GLUCOSE 108 mg/dl (70-99)
[2017-11-18 13:13] LABS: POTASSIUM 3.6 mmol/L (3.5-5.1); SODIUM 141 mmol/L (136-145)
[2017-11-18 13:14] LABS: PTT PATIENT 22.4 SECONDS (21.0-31.0)
[2017-11-18 13:39] LABS: BLOOD UREA NITROGEN 13 mg/dl (7-18)
[2017-11-18] MEDS ORDERED: LORAZEPAM 1 MG TAB PO STA (17:00)
[2017-11-18] MEDS ORDERED: LORAZEPAM 1 MG TAB ONE (17:01)
[2017-11-18] MEDS ORDERED: LORAZEPAM 2 MG/ML 1 ML VIAL IM STA (17:52)
[2017-11-18] MEDS ORDERED: HALOPERIDOL LACTATE 5 MG/ML 1 ML VIAL IM STA (17:52)
[2017-11-18] MEDS ORDERED: NURSING VERBAL MED ORDER ONE (18:15)
[2017-11-18 18:45] VITALS: O2SAT 97
[2017-11-18] MEDS ORDERED: hydrOXYzine HCL 25 MG TAB PO PRN ×2 (18:45)
[2017-11-18] MEDS ORDERED: ACETAMINOPHEN 325 MG TAB PO PRN (18:45)
[2017-11-18] MEDS ORDERED: SODIUM CHLORIDE 0.65% NA SOLN 45 ML (OCEAN) PRN (18:45)
[2017-11-18] MEDS ORDERED: BISMUTH SUBSALICYLATE PER ML OMNICELL CHARGE PO PRN (18:45)
[2017-11-18] MEDS ORDERED: MAGNESIUM HYDROXIDE SUSP 30 ML UDC PO PRN (18:45)
[2017-11-18] MEDS ORDERED: KETOROLAC TROMETHAMINE 10 MG TAB PO PRN (18:45)
[2017-11-18] MEDS ORDERED: ALUMINUM/MAGNESIUM SUSP 30 ML UDC PO PRN (18:45)
[2017-11-18 19:23] VITALS: BP 100/58; PULSE 108; TEMP 36.7; BMI 22.9
[2017-11-18 21:22] VITALS: BP 89/57; PULSE 98
[2017-11-18] MEDS: BusPIRone 15 MG TAB PO SCH (21:38)
[2017-11-18] MEDS: CLONIDINE HCL 0.1 MG TAB PO SCH (21:38)
[2017-11-19 07:05] VITALS: BP_SYST 109; BP_SYST 110; BP_DIAS 69; BP_DIAS 75; PULSE 105; PULSE 116; TEMP 37
[2017-11-19 07:11] VITALS: Ht 162.6 cm; Wt 60.6 kg
[2017-11-19] MEDS ORDERED: ONDANSETRON 4 MG TAB PO PRN (07:45)
[2017-11-19] MEDS: CLONIDINE HCL 0.1 MG TAB PO SCH ×3 (07:46→21:03)
--- NOTE | 2017-11-19 07:48 | Psychiatric Progress Notes ---
Psychiatric Progress Note Date of Service Nov 19, 2017. Notes called to assess patient, she is complaining of lower back pain, has been screaming out due to pain in ED and this am despite sleeping 10 hours. No appreciable muscle spasm, tender along sacrum not flank. UA in ED without hematuria. Patient has significant substance abuse hx and recurrent ED visits for ?drug seeking behavior. Directed staff to give am clonidine due to tachy and ?withdrawal, also toradol as already ordered for prn. Repeat UA. Consider med consult. Melissa ordered prn N. She is requesting morphine or dilaudid.
[2017-11-19] MEDS: PANTOprazole SOD 40 MG TAB PO SCH (08:28)
[2017-11-19] MEDS: BusPIRone 15 MG TAB PO SCH ×3 (08:28→21:03)
[2017-11-19] MEDS ORDERED: SERTRALINE HCL 50 MG TAB PO SCH (09:00)
[2017-11-19] MEDS ORDERED: DIAZ10TA PO (09:30)
[2017-11-19] MEDS ORDERED: ALPR1TAB3 PO (09:30)
[2017-11-19] MEDS ORDERED: POTA20TA16 PO (09:30)
[2017-11-19] MEDS ORDERED: TRAZ50TA35 PO (09:30)
[2017-11-19] MEDS ORDERED: OLAN-111 PO (09:30)
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
[2017-11-19] MEDS ORDERED: TRAZODONE HCL 50 MG TAB PO PRN (12:15)
[2017-11-19 14:07] VITALS: BP 105/67; PULSE 106
[2017-11-19] MEDS: ALPRAZOLAM 0.5 MG TAB PO SCH ×2 (14:07→21:05)
[2017-11-19 21:07] VITALS: BP 117/75; PULSE 108
[2017-11-19] MEDS ORDERED: DIAZEPAM 5MG TAB PO SCH (22:00)
[2017-11-19 22:21] VITALS: BP 117/75; PULSE 108; PULSE 116; TEMP 37
[2017-11-20 06:55] VITALS: BP_SYST 105; BP_SYST 94; BP_DIAS 59; BP_DIAS 67; PULSE 90; PULSE 93; TEMP 36.9
[2017-11-20 08:31] VITALS: BP 109/76; PULSE 105
[2017-11-20] MEDS: PANTOprazole SOD 40 MG TAB PO SCH (08:33)
[2017-11-20] MEDS: ALPRAZOLAM 0.5 MG TAB PO SCH (08:33)
[2017-11-20] MEDS: CLONIDINE HCL 0.1 MG TAB PO SCH (08:33)
[2017-11-20] MEDS: BusPIRone 15 MG TAB PO SCH (08:33)
[2017-11-20] MEDS ORDERED: SERTRALINE HCL 100 MG TAB PO SCH (09:00)
[2017-11-20] MEDS ORDERED: ALPR1TAB3 PO (11:43)
[2017-11-20] MEDS ORDERED: ZLF/100 PO (11:43)
--- NOTE | 2017-11-20 11:57 | Discharge Instructions ---
Discharge Information Report Includes Report will include the: Discharge Instructions & Summary Admission Admission Date / Time: Nov 18, 2017 at 18:00 Reason for Admission: Major Depressive Disorder Discharge Discharge Diagnosis / Problem: depression Condition at Discharge: Fair Discharge Goals Goal(s): Improve disease control, Therapeutic intervention Activity Recommendations Activity Limitations: resume your previous activity . Instructions / Follow-Up Instructions / Follow-Up . SPECIAL CARE INSTRUCTIONS: 1. Follow through with your scheduled aftercare appointments. If unable to keep an appointment, please call to reschedule. 2. Take your medication only as prescribed. Medication should not be changed or stopped without the approval of your doctor. In the event of worsening symptoms or concerns about side effects, contact your doctor immediately. 3. Utilize new healthy coping skills, anger management skills, and stress management skills learned during your hospitalization. Journal feelings and process them with a support person. Identify stressors or situations that may result in relapse, deterioration or inappropriate behaviors and develop a plan to deal with those issues. 4. If your coping skills are ineffective and you are in crisis, contact your outpatient providers for direction. If unable to reach your providers, please call the CAN HELP LINE AT or go to the closest Emergency Room. 5. Avoid alcohol and un-prescribed drugs. 6. You have been provided with the Mental Health Advance Directives Pamphlet for your review. AFTERCARE APPOINTMENTS: * Please call your insurance company prior to your scheduled appointment to confirm your aftercare providers are covered. Take your insurance information to your appointments. . Discharge / Aftercare Planning Primary Care Physician: Name: [facility] Psychiatrist: Name: Afua Reed's office) [facility] Date of Appointment: Nov 30, 2017 Therapist: Name Of Therapist: None Access Lead: Name: None Partial or Psych Rehab: Name: [facility] Date Of Appointment: Dec 04, 2017 Time of Appointment: 11:30 AM Appointment Comments: Intake for IOP with Janet . Follow-Up Care Plan for Follow-Up Care: The patient will return to her regular outpatient providers. Current Hospital Diet Patient's current hospital diet: Regular Diet Discharge Diet Recommended Diet: Regular Diet Procedures Procedures Performed: No Pending Studies Pending Studies at Discharge: No Medical Emergencies . Who to Call and When: Medical Emergencies: For questions or emergencies related to your hospital stay, please contact the Inpatient Behavioral Health Unit at [phone]. A hammer fitter is on-call 04/06 for the Behavioral Health Unit for emergencies At any time you feel your situation is an emergency, you may also call 911 immediately. . Non-Emergent Contact Non-Emergency issues call your: Psychiatrist, Therapist Advance Directives Existing Advance Directive: No Do You Have an Existing Mental: No Existing Living Will: No Existing Power of Staff Toxicologist: No Advance Directives Info Given: To Pt/S.O. Advance Directives Reason: Declines as Mental Health Visit. Discharge Summary Admission HPI Per the Admitting provider: According to records, the patient was brought to the emergency room yesterday morning by her mother, who dropped her off and left. She frequently comes to the emergency room requesting pain medications, and this was her fifth emergency room visit in 10 days. She had been seeing the 2 days prior for chest pain, had a complete workup which was negative, but continued to feel that something was wrong. She reported sharp central chest pain that began 3 days ago, as well as nausea, vomiting, and low back pain. She reported last use of heroin was 2 months ago. She refused the chest x-ray that was ordered, and denied any recent trauma. She had just been seen the day prior for the same complaint. EKG showed sinus tachycardia, troponin was negative, BMP and CBC were normal, TSH normal, and drug screen was positive for opiates, MDMA, and benzodiazepines. She was screaming in the emergency room, stating that she was in pain, and was poorly cooperative with attempts to assess her mental health. She made statements that she would stab herself in the stomach in order to relieve her chest pain, and could not contract for safety outside of the hospital. She complained to staff that she was not being taken seriously, and wanted the doctor to open up her chest to see what was wrong with her. She stated that she "feels like she is going crazy" and admitted that she scratched herself the day prior with a bottle limited in order to take some of the pain away. She reported a history of self injury via cutting and scratching for the past few years, and said she had just been discharged from [facility] psychiatric unit several days prior. She reported inability to sleep, inability to eat as she vomits every time she eats, high anxiety, and continued to endorse thoughts to stab herself in the stomach "because how else will like it taken seriously for treatment." The emergency room doctor completed a 302. She received fentanyl and lorazepam in the emergency room prior to her drug screen specimen. Throughout her ER stay, she was crying and pleading for medication. [facility] staff report the patient slept 10 hours overnight, and this morning was wailing and crying out for nurse, demanding pain medications or to be sent back to the emergency room. She was thrashing in bed, and was seen by Dr. han who recommended warm compress, deep breathing, clonidine when necessary for opiate withdrawal, and Toradol when necessary per home meds order. She was also offered Zofran, which she refused. She repeatedly asked to see the doctor again , and then came to the nurse's station requesting Xanax, stating she is prescribed 1 mg 3 times a day" needs it." She then fell asleep in the day room. On my assessment, the patient says she didn't mean what she said, "I'd rather than have this chest pain, but that's just a hypothetical." She admits she has "a lot of anxiety, I'm prescribed Xanax, I need it." She reports anxiety symptoms for the past 4-5 years, but just started getting treatment about a year ago, when she was admitted to a hospital in [place]. She says she was diagnosed with anxiety and depression, started on medications (the same meds she is on now), and referred for outpatient care. She says her alprazolam and diazepam have been increased by her outpatient brand attendant. She lives back [place] between [place], as her dad lives in [place] and her mother lives here. She started seeing a PA at [facility], and says she also has IOP for substance abuse treatment "all set up," but doesn't know where or with whom. She says she was in [facility] for 4 days for suicidal statements, and says none of her meds were changed. She repots worsening anxiety for the past couple of week, denies stressors, with restlessness, thoughts racing, "feel I'm going to crawl outside my skin." It is intermittent, and she denies exacerbating factors. She says her mood is "fine," and reports some problems with sleep, getting 6-7 hours a night and really 8 hours, energy is "normal," denies problems with concentration, and denies SI and HI. She denies manic symptoms, AVH, paranoia, OCD, PTSD. She denies urges to cut, and when asked about her reports in the ER, says she scratched herself because she was anxious, not to harm herself. 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 She says she is engaged to a man in [place], whom she attends AA with. She repeatedly states she doesn't need to be here and wants to leave, and says her mother set her up with case management and therapy, but doesn't know the names of the providers or facilities. Hospital Course (1) Anxiety 11/19 - patient reports long-standing anxiety that has worsened over the past several weeks and denies any triggers. She denies being on higher doses of sertraline, and agrees to increase her dose to 200 mg daily. She is very fixated on getting her benzodiazepines, and states she is taking alprazolam 1 mg 3 times a day and diazepam 10 mg daily at bedtime, and PDMP confirms that she has been prescribed these doses, first from Dr. Reed and MAXIMILIANO Garcia, and then from Dr. Hoffman in [place]. She filled a 30 day supply of alprazolam 1mg tid on 11/15/17, and a 21 days supply of alprazolam 10mg qhs the same day from Dr. Hoffman. The last prescription from Afua connors was from 08/14/2017, and Dr. Reed prescribed to her in July 2017. I'm concerned about the high-dose benzodiazepines, as well as the fact that her anxiety is actually getting worse on these medications, but she is very fixated on them and demanding these medications, so we'll continue her home doses for now while contacting her outpatient psychiatric prescribers to discuss her case. - Encourage group participation, work on healthy coping skills and her discharge safety plan. - Family meeting with mother, coordinate with outpatient providers. Called [facility] and had to leave a message. - Every 15 minute checks for safety. - Admitted on an involuntary 302 commitment, and we will continue to gather information towards the need for ongoing treatment (2) Depression 11/19 - patient has given inconsistent reports about her mood, initially reporting depression, but today denying all mood symptoms and focusing on discharge. Increase sertraline as above, and continue to monitor symptoms. (3) Opiate abuse, continuous 11/19 - patient reports IV heroin and opiate pain medication abuse, states her last use was 1 month ago. The UDS obtained in the ER is not helpful as they gave her fentanyl and lorazepam prior to collecting the urine sample. Would avoid prescribing any controlled substances, and will coordinate care with her outpatient psychiatric provider as above. The patient states that her mother has already arranged IOP substance abuse treatment for her, but does not know any further details about it, so we will need to discuss this with her mother in the family meeting. Risk Factors Assessment : Yes /single/: Yes Higher / Fall in social status: No Health problems: Yes Mental Health Diagnoses: Yes Substance use disorders: Yes Family history of suicide: No Previous psychiatric stay: Yes Hopelessness: No Smoker: No Protective Factors Assessment Mormonism beliefs: No : No Responsible for young children: No Employed: Yes Stable relationships: Yes Supportive family: Yes Good rapport with provider: Yes Day of Discharge Assessment COURSE OF HOSPITALIZATION: The patient has been on our unit for 2 days. She was admitted involuntarily after presenting to the emergency Department with physical complaints, then threatening suicide. Her reports quite variable, changing her information about multiple things on admission. She did not want to come to the mental health unit but had wanted medications for her pain. During the first 24 hours of her stay she had multiple episodes of very dramatic and agitated behaviors, demanding someone give her pain medications for what she reported as a kidney stone. UA was obtained, no blood seen. She has had 6 ER visits of late, all reporting with various pains, seeking medications. She has an admitted history of drug dependence including heroin. She was most recently in the [facility] in [place] having been discharged just several days prior to admission to our unit. They apparently continued her on reported medications including both Xanax and Valium. These were initially continued here however she did appear sedated and so it was recommended she taper off of Xanax in her dosage was cut in half to 0.5 mg 3 times a day. Family meeting was held with her mother today. Apparently the parents are frustrated with her and are giving her an ultimatum that if she ends up in another mental health unit that they will demand she go to rehabilitation. Mother agrees to hold all of her medications and we will inform her of the dosage decrease. We have been in contact with her outpatient psychiatrist's office, Dr. Reed to inform him of our concerns about controlled substances in someone with an ongoing substance use issue. We will send a discharge summary to his office to indicate that our recommendations are that she taper off all benzodiazepines in view of her dramatic med seeking behaviors and risk for ongoing addictions to benzodiazepines. She is scheduled with [facility] this month and so we'll begin outpatient treatment for drugs and alcohol. If the patient continues with her pattern of ER visits and medication seeking, which she would recommend inpatient drug and alcohol treatment. After admission, she has consistently denied any suicidal ideation. Very dramatically, her behavior changed after the first 12-14 hours, when she realized she would not get narcotics. She was cooperative although selective about groups that she would attend. She has prompt follow-up appointments both with both her outpatient psychiatrist and her [facility]. I would recommend if she presents to the emergency department again that she not be given any controlled substances including fentanyl which she was provided for anxiety during recent visits. DAY OF DISCHARGE ASSESSMENT: Today the patient is requesting discharge. She continues to say that her mood is good, denying suicidal or homicidal ideation she admits to being tired and attributes this to her medications and so she was informed that we would speak in the taper of her benzodiazepines. Today she is casually attired and tired in appearance. Gait and station are within normal limits. Eye contact is good. Speech is of normal rate volume and tone. Thoughts are organized, goal-directed, and without evidence of thought disorder. Recent and remote memory are intact per conversation. Intelligence is estimated to be average insight and judgment are only minimally improved over admission. Laboratory Test 11/18/17 12:17 11/18/17 14:20 11/18/17 16:20 11/19/17 00:00 White Blood Count 8.31 Red Blood Count 4.78 Hemoglobin 13.4 Hematocrit 41.4 Mean Corpuscular Volume 86.6 Mean Corpuscular Hemoglobin 28.0 Mean Corpuscular Hemoglobin Concent 32.4 Platelet Count 210 Mean Platelet Volume 10.0 Neutrophils (%) (Auto) 71.4 Lymphocytes (%) (Auto) 23.9 Monocytes (%) (Auto) 4.1 Eosinophils (%) (Auto) 0.4 Basophils (%) (Auto) 0.1 Neutrophils # (Auto) 5.93 Lymphocytes # (Auto) 1.99 Monocytes # (Auto) 0.34 Eosinophils # (Auto) 0.03 Basophils # (Auto) 0.01 RDW Standard Deviation 48.3 RDW Coefficient of Variation 15.2 Immature Granulocyte % (Auto) 0.1 Immature Granulocyte # (Auto) 0.01 Prothrombin Time 10.7 Prothrombin Time INR 1.0 PTT 22.4 Partial Thromboplastin Ratio 0.9 Sodium Level 141 Potassium Level 3.6 Chloride Level 106 Carbon Dioxide Level 27 Anion Gap 8.0 Blood Urea Nitrogen 13 Creatinine 1.02 Est Creatinine Clear Calc Drug Dose 74.1 Estimated GFR () 89.8 Estimated GFR (Non- 77.5 BUN/Creatinine Ratio 13.0 Random Glucose 108 Calcium Level 10.4 Troponin I < 0.015 Thyroid Stimulating Hormone (TSH) 1.160 Human Chorionic Gonadotropin, Qual NEG Salicylates Level < 1.7 Acetaminophen Level < 2 Ethyl Alcohol mg/dL < 3.0 Urine Color DK YELLOW DK YELLOW Urine Appearance TURBID CLEAR Urine pH 5.5 5.0 Urine Specific [place] 1.030 1.026 Urine Protein TRACE NEG Urine Glucose (UA) NEG NEG Urine Ketones TRACE TRACE Urine Occult Blood NEG NEG Urine Nitrite NEG NEG Urine Bilirubin NEG NEG Urine Urobilinogen NEG NEG Urine Leukocyte Esterase TRACE SMALL Urine WBC (Auto) 5-10 5-10 Urine RBC (Auto) 0-4 0-4 Urine Hyaline Casts (Auto) 10-30 10-30 Urine Epithelial Cells (Auto) >30 >30 Urine Bacteria (Auto) NEG NEG Urine Renal Epithelial Cells Urine Crystals CALCIUM OXALATE CALCIUM OXALATE Urine Test NEG Urine Opiates Screen POS Urine Methadone, Qualitative NEG Urine Barbiturates NEG Urine Phencyclidine (PCP) Level NEG Ur Amphetamine/Methamphetamine NEG Urine MDE-amphetamine (MDEA) Pending Ur Methylenedioxyamphetamine (MDA) Pending MDMA (Ecstasy) Screen POS Methylenedioxymethamphetamine (MDMA Pending Urine Hydroxyalprazolam Confirm Pending Urine Benzodiazepines Screen POS 7-Amino Clonazepam Level Pending Urine Nordiazepam Confirmation Pending Urine Hydroxyethylflurazepam Level Pending Urine Lorazepam (GC/MS) Pending Urine Oxazepam Confirm (GC/MS) Pending Urine Temazepam Confirmation Pending Urine Hydroxytriazolam Confirmation Pending Urine Hydroxymidazolam Confirmation Pending Urine Cocaine Metabolite NEG Urine Marijuana (THC) NEG Total Time Total Time Spent (min): Greater than 30 minutes Total Time Included: examination of the patient, discharge planning, medication reconciliation, communication with other providers Tobacco Cessation at Discharge Smoking Status: Never Smoker FDA approved Prescription: non-smoker Problem Qualifiers (1) Depression: Depression Type: major depressive disorder
[2017-11-20] MEDS ORDERED: ALPRAZOLAM 0.5 MG TAB PO SCH (22:00)
== END 2017-11-20 12:53 | disposition home or self-care (01) | DRG 881 ==
LOC: C.EDB 11:50 → C.MHU 18:00 → ENRESERV 18:10
PROVIDERS: ADMIT Student in an Organized Health Care Education/Training Program; ATTEND Student in an Organized Health Care Education/Training Program
DX: F32.9 Major depressive disorder, single episode, unspecified (principal); R45.851 Suicidal ideations; F11.14 Opioid abuse with opioid-induced mood disorder; R07.89 Other chest pain; F41.9 Anxiety disorder, unspecified; M54.5 Low back pain; Z87.442 Personal history of urinary calculi; Z83.3 Family history of diabetes mellitus

== ENCOUNTER 2017-11-22 23:56 | Inpatient (IN) | payer BC ==
[~2017-11-22] VITALS: Ht 162.6 cm; Wt 62.4 kg
[~2017-11-22 23:56] MED LIST changes: +ALPR1TAB3 PO; -CTP/1 PO; +DIAZ10TA PO; +POTA20TA16 PO; -PRLSR20 PO; -SERT-234 PO; +TRAZ50TA35 PO; +ZLF/100 PO
[2017-11-23] VITALS (7 sets, daily range): BP systolic 86–102; BP diastolic 47–66; PULSE 72–104; TEMP 36.3–36.8; O2SAT 95–99; Ht 162.6 cm; Wt 62.4 kg
[2017-11-23] MEDS ORDERED: SODIUM CHLORIDE 0.9% 1000ML 1,000 ML IV STA (00:02)
[2017-11-23] MEDS ORDERED: ONDANSETRON INJ 2 MG/ML 2 ML VIAL IV STA ×2 (00:02→04:04)
[2017-11-23] MEDS ORDERED: NALOXONE HCL 0.4 MG/1 ML VIAL/CARP IV STA (00:02)
[2017-11-23] MEDS ORDERED: KETOROLAC TROMETHAMINE 30 MG/ML VIAL IV STA ×2 (01:22→11:56)
[2017-11-23] MEDS ORDERED: ACETAMINOPHEN 500 MG TAB PO STA (01:22)
[2017-11-23] MEDS ORDERED: SERT-234 PO (01:22)
[2017-11-23] MEDS ORDERED: ALPR1TAB3 PO (01:24)
[2017-11-23 01:27] LABS: EOS % 0.2 %; EOS ABS # 0.02 K/uL (0-0.5); HEMATOCRIT 31.9 % (37-47); HEMOGLOBIN 10.5 g/dL (12.0-16.0); IG# 0.04 K/uL (0.00-0.02); LYMPH % 12.4 %; LYMPH ABS # 1.49 K/uL (1.2-3.4); MEAN CELL VOLUME 85.8 fL (80-100); MEAN CORPUSCULAR HEMOGLOBIN 28.2 pg (25-34); MEAN CORPUSCULAR HGB CONC 32.9 g/dl (32-36); MEAN PLATELET VOLUME 9.7 fL (7.4-10.4); MONO % 5.6 %; MONO ABS # 0.67 K/uL (0.11-0.59); NEUT % 81.5 %; NEUT ABS # 9.77 K/uL (1.4-6.5); PLATELET COUNT 186 K/uL (130-400); RED CELL DISTRIBUTION WIDTH CV 14.7 % (11.5-14.5); WHITE BLOOD COUNT 11.99 K/uL (4.8-10.8)
[2017-11-23 01:28] LABS: ALBUMIN 3.9 gm/dl (3.4-5.0); ALT/SGPT 27 U/L (12-78); AST/SGOT 20 U/L (15-37); BLOOD UREA NITROGEN 11 mg/dl (7-18); CALCIUM 9.1 mg/dl (8.5-10.1); CARBON DIOXIDE 21 mmol/L (21-32); CREATININE 1.13 mg/dl (0.60-1.20); GLUCOSE 134 mg/dl (70-99); LIPASE 105 U/L (73-393); SODIUM 140 mmol/L (136-145)
[2017-11-23 01:43] LABS: ALKALINE PHOSPHATASE 95 U/L (45-117); TOTAL PROTEIN 7.3 gm/dl (6.4-8.2)
[2017-11-23] MEDS ORDERED: LORAZEPAM 2 MG/ML 1 ML VIAL IV STA ×2 (01:57→04:04)
[2017-11-23] MEDS ORDERED: OPTIRAY 320 IV PRN (02:00)
[2017-11-23] MEDS ORDERED: CLINDAMYCIN 600 MG/54 ML D5W IV ONE (04:00)
--- NOTE | 2017-11-23 04:37 | EMERGENCY ROOM VISIT NOTE ---
History First contact with patient: 23:57 Chief Complaint: OVERDOSE (INTENTIONAL) Stated Complaint: OVERDOSE History of Present Illness The patient is a 22 year old female who presents to the Emergency Room with complaints of heroin overdose. Patient took heroin to get high. She swallowed it. Last use she reports is 3 weeks ago. Patient overdosed and her mom began to do CPR and the police gave 8 mg of Narcan. They are unsure exactly how long she was down for. She was immediately responsive after the Narcan. Patient is complaining of severe midsternal chest pain and anxiety. Patient is yelling and screaming. Patient denies dyspnea, abdominal pain, headache, neck pain, cough, leg pain, arm pain. Patient denies any other drugs today. Pain currently 10 out of 10. Nothing makes it better or worse. Pain does not radiate. Review of Systems See HPI for pertinent positives & negatives. A total of 10 systems reviewed and were otherwise negative. Past Medical/Surgical History Medical Problems: (1) Depression (2) Heroin use (3) Hx of ectopic (4) Kidney stones (5) Opiate abuse, continuous Family History Cancer Diabetes mellitus Gallbladder disease Heart disease Hypertension Kidney disease Kidney stones Social History Smoking Status: Never Smoker Alcohol Use: none Drug Use: heroin, other Marital Status: single Housing Status: lives with family Occupation Status: unemployed Current/Historical Medications Scheduled Alprazolam (Xanax), 0.5 MG PO TID Buspirone Hcl (Buspar), 15 MG PO TID Diazepam (Valium), 10 MG PO HS Sertraline (Zoloft), 200 MG PO DAILY Scheduled PRN Trazodone Hcl (Trazodone), 50 MG PO HS PRN for Sleep Physical Exam Vital Signs Date Time Temp Pulse Resp B/P (MAP) Pulse Ox O2 Delivery O2 Flow Rate FiO2 11/23/17 03:04 124 20 129/87 95 Room Air 11/23/17 02:50 122 18 154/108 98 Room Air 11/23/17 01:31 121 22 146/108 100 Room Air 11/23/17 01:02 136 28 142/97 100 Room Air 11/23/17 00:33 100 Room Air 11/23/17 00:32 100 Room Air 11/23/17 00:09 136 11/23/17 00:05 37.2 136 28 145/107 99 Room Air Physical Exam PHYSICAL EXAM: VITALS: Vitals are noted on the nurse's note and reviewed by myself. Vital signs tachycardic. GENERAL: White female yelling and screaming, in no acute distress, nondiaphoretic, well-developed well-nourished. SKIN: A few track marcelino to bilateral arms, left antecubital area healing abrasion. Superficial abdominal abrasion The rest of the skin was without obvious lacerations or abrasions. Capillary reflex less than 2 seconds. HEAD: Normocephalic atraumatic. EARS: External auditory canals clear, tympanic membranes pearly bass without erythema or effusion bilaterally. No hemotympanums. No zayas sign. No mastoid tenderness. EYES: Pupils equal round and reactive to light and accommodation. Conjunctivae without injection, sclerae without icterus. Extraocular movements intact. NOSE: Patent, turbinates without inflammation or discharge. No sinus tenderness. No septal hematoma or bleeding. FACE: No facial bone tenderness. Full range of motion of the jaw without tenderness. MOUTH: Mucous membranes moist. Pharynx without erythema or exudate. Uvula midline. Airway patent. Tongue does not deviate. NECK: Supple without nuchal rigidity. Cervical spine is nontender. Full range of motion of the neck without tenderness. No JVD. HEART: Tachycardic rate and rhythm without murmurs gallops or rubs. LUNGS: Clear to auscultation bilaterally without wheezes, rales or rhonchi. No dullness to percussion. No retractions or accessory muscle use. Midsternal chest chest wall tenderness. ABDOMEN: Positive bowel sounds x 4. Normal tympanic percussion. Soft, nontender, without masses or organomegaly. No guarding or rebound tenderness. MUSCULOSKELETAL: No tenderness of the thoracic or lumbar spine. No tenderness with pelvic rocking. Full range of motion without tenderness to palpation in all extremities. Normal gait. Strength 5/5 throughout. NEURO: Patient was alert and oriented to person place and time. Normal sensation to light and sharp touch. No focal neurological deficits. Medical Decision & Procedures Laboratory Results 11/23/17 00:57 Red Blood Count 3.72, Mean Corpuscular Volume 85.8, Mean Corpuscular Hemoglobin 28.2, Mean Corpuscular Hemoglobin Concent 32.9, Mean Platelet Volume 9.7, Neutrophils (%) (Auto) 81.5, Lymphocytes (%) (Auto) 12.4, Monocytes (%) (Auto) 5.6, Eosinophils (%) (Auto) 0.2, Basophils (%) (Auto) 0.0, Neutrophils # (Auto) 9.77, Lymphocytes # (Auto) 1.49, Monocytes # (Auto) 0.67, Eosinophils # (Auto) 0.02, Basophils # (Auto) 0.00 11/23/17 00:57 Test 11/23/17 00:57 11/23/17 04:00 White Blood Count 11.99 K/uL (4.8-10.8) Red Blood Count 3.72 M/uL (4.2-5.4) Hemoglobin 10.5 g/dL (12.0-16.0) Hematocrit 31.9 % (37-47) Mean Corpuscular Volume 85.8 fL (80-100) Mean Corpuscular Hemoglobin 28.2 pg (25-34) Mean Corpuscular Hemoglobin Concent 32.9 g/dl (32-36) Platelet Count 186 K/uL (130-400) Mean Platelet Volume 9.7 fL (7.4-10.4) Neutrophils (%) (Auto) 81.5 % Lymphocytes (%) (Auto) 12.4 % Monocytes (%) (Auto) 5.6 % Eosinophils (%) (Auto) 0.2 % Basophils (%) (Auto) 0.0 % Neutrophils # (Auto) 9.77 K/uL (1.4-6.5) Lymphocytes # (Auto) 1.49 K/uL (1.2-3.4) Monocytes # (Auto) 0.67 K/uL (0.11-0.59) Eosinophils # (Auto) 0.02 K/uL (0-0.5) Basophils # (Auto) 0.00 K/uL (0-0.2) RDW Standard Deviation 46.0 fL (36.4-46.3) RDW Coefficient of Variation 14.7 % (11.5-14.5) Immature Granulocyte % (Auto) 0.3 % Immature Granulocyte # (Auto) 0.04 K/uL (0.00-0.02) Anion Gap 9.0 mmol/L (3-11) Estimated GFR () 79.3 Estimated GFR (Non- 68.5 BUN/Creatinine Ratio 9.9 (10-20) Calcium Level 9.1 mg/dl (8.5-10.1) Total Bilirubin 0.2 mg/dl (0.2-1) Direct Bilirubin < 0.1 mg/dl (0-0.2) Aspartate Amino Transf (AST/SGOT) 20 U/L (15-37) Alanine Aminotransferase (ALT/SGPT) 27 U/L (12-78) Alkaline Phosphatase 95 U/L (45-117) Total Creatine Kinase 78 U/L (26-192) Troponin I 0.130 ng/ml (0-0.045) Total Protein 7.3 gm/dl (6.4-8.2) Albumin 3.9 gm/dl (3.4-5.0) Lipase 105 U/L (73-393) Human Chorionic Gonadotropin, Qual NEG (NEG) Medications Administered Medications (Trade) Dose Ordered Sig/Thuan Route Start Time Stop Time Status Last Admin Dose Admin Sodium Chloride 1,000 ml @ 999 mls/hr Q1H1M STAT IV 11/23/17 00:02 11/23/17 01:02 DC 11/23/17 01:04 999 MLS/HR Ondansetron HCl (Zofran Inj) 4 mg NOW STAT IV 11/23/17 00:02 11/23/17 00:04 DC 11/23/17 01:14 4 MG Ketorolac Tromethamine (Toradol Inj) 30 mg NOW STAT IV 11/23/17 01:22 11/23/17 01:24 DC 11/23/17 01:30 30 MG Clindamycin Phosphate (Cleocin 600mg/ 54ml D5W) 600 mg ONE ONCE IV 11/23/17 04:00 11/23/17 04:01 DC 11/23/17 04:17 600 MG Lorazepam (Ativan Inj) 1 mg NOW STAT IV 11/23/17 04:04 11/23/17 04:05 DC 11/23/17 04:11 1 MG Ondansetron HCl (Zofran Inj) 4 mg NOW STAT IV 11/23/17 04:04 11/23/17 04:05 DC 11/23/17 04:08 4 MG ED Course Prior records/ancillary studies reviewed. Triage Nursing notes reviewed. Additional history obtained from EMS. The patient's history was concerning for altered mental status and probable overdose. Differential diagnosis: Etiologies such as toxicologic, infection, hypoglycemia, electrolyte abnormalities, cardiac sources, intracerebral event, neurologic, as well as others were entertained. Physical examination: The patient had a normal sensorium. No trauma noted. ER treatment provided: IV NSS 1 L bolus Ativan, Zofran On reassessment the patient was stable and improving. Diagnostic interpretation by me: The electrocardiogram was normal sinus, normal intervals, no acute ST-T wave changes. There was no QRS widening or interval prolongation. Impression sinus tachycardia interpreted by myself unchanged from prior The labs revealed elevated troponin. CPK normal Imaging studies: Chest x-ray with no acute consolidation or pneumothorax free air per my interpretation Chest CT is concerning for possible aspiration without fracture per radiology Consultation: A consultation was placed with Dr. Juarez hospitalist. The case was discussed and diagnostics were reviewed. The patient was evaluated in the ER for further treatment. This appears to be consistent with an overdose of heroin with elevated troponin. Patient's family did CPR on her. Her elevated troponin could be related to this or stress induced from the overdose. Patient was given Narcan and reverse the overdose by the police. Patient will be evaluated by medicine for possible admission. CT scan was negative for rib fracture or contusion. By the evaluation outlined above emergent etiologies such as hypoglycemia, electrolyte abnormalities, intracerebral event, neurologic,as well as others were deemed relatively unlikely. The pt informed about the findings as listed above. All questions were answered and pleased with the treatment. Case reviewed with my attending Medical Decision As above Head Trauma GCS Score: 15 Medication Reconcilliation Current Medication List: was personally reviewed by me Blood Pressure Screening Patient's blood pressure: Normal blood pressure Impression Primary Impression: Heroin overdose Additional Impressions: Aspiration pneumonia Elevated troponin Chest wall pain Departure Information Dispostion Being Evaluated By Hospitalist Condition GOOD Referrals Orlin Zhu M.D. (PCP) Patient Instructions [facility] Problem Qualifiers Primary Impression: Heroin overdose Encounter type: initial encounter Injury intent: accidental or unintentional Qualified Codes: T40.1X1A - Poisoning by heroin, accidental ( unintentional), initial encounter
[2017-11-23] MEDS ORDERED: ONDANSETRON 8MG OD TAB PO PRN (06:15)
[2017-11-23] MEDS ORDERED: NITROGLYCERIN 0.4 MG SL PER TAB CHARGE SL PRN (06:15)
[2017-11-23] MEDS ORDERED: ACETAMINOPHEN 325 MG TAB PO PRN ×2 (06:15→17:30)
--- NOTE | 2017-11-23 06:38 | EMERGENCY ROOM VISIT NOTE ---
ED Visit Note First contact with patient: 23:57 I have personally evaluated and examined this patient. I agree with assessment and plan of Tanya Garcia PA-C. 22 yr old heroin addict becoming well known to facility for psychiatric and drug abuse issues. Arrives following respiratory arrest due to heroin OD. She is over the top making a seen about chest pain with unremarkable EKG, though does have positive Trop. Suspect all of this is combo chest compressions she received, severe anxiety and rebound pain from immediate opioid withdrawal. Trop bump secondary to respiratory arrest. Tyl/ Toradol for pain with some success. CT chest felt inevitable which reveals some possible aspiration, thus clinda given. Patient finally calming down without further issues. With multiple issues will need to come in for further work-up and evaluation.
--- NOTE | 2017-11-23 06:40 | History and Physical ---
History & Physical Date & Time of Service: Nov 23, 2017 at 06:35 Chief Complaint: Overdose Primary Care Physician: Orlin Zhu M.D. History of Present Illness Source: patient, hospital records Past Medical/Surgical History Medical Problems: (1) Heroin use Status: Resolved (2) Hx of ectopic Status: Resolved (3) Kidney stones Status: Resolved Family History Cancer Diabetes mellitus Gallbladder disease Heart disease Hypertension Kidney disease Kidney stones Social History Smoking Status: Never Smoker Smokeless Tobacco Use: No Drug Use: heroin, other Marital Status: single Housing status: lives with family Occupational Status: unemployed Immunizations History of Influenza Vaccine: Unknown History of Tetanus Vaccine?: Unknown History of Pneumococcal: Unknown History of Hepatitis B Vaccine: Unknown Multi-Drug Resistant Organisms History of MDRO: No Allergies Coded Allergies: No Known Allergies (Unverified , 11/11/17) Home Medications Scheduled Alprazolam (Xanax), 0.5 MG PO TID Buspirone Hcl (Buspar), 15 MG PO TID Diazepam (Valium), 10 MG PO HS Sertraline (Zoloft), 200 MG PO DAILY Scheduled PRN Trazodone Hcl (Trazodone), 50 MG PO HS PRN for Sleep Review of Systems The patient denies chest pain, palpitations, lower extremity swelling, sore throat, nausea, vomiting, diarrhea , constipation, abdominal pain, pelvic pain, blood in urine or stool, dysuria, urinary frequency or urgency, abnormal bruising or bleeding, imbalance, focal weakness, generalized arthralgias or myalgias, back or neck pain, or night sweats. The review of systems is otherwise negative other than for that already noted above, and at least 10 systems have been reviewed. Physical Exam Vital Signs Date Time Temp Pulse Resp B/P (MAP) Pulse Ox O2 Delivery O2 Flow Rate FiO2 11/23/17 05:15 118 15 96 Room Air 11/23/17 05:00 119 15 139/91 96 11/23/17 04:45 119 16 96 11/23/17 04:30 118 17 140/96 95 11/23/17 04:15 119 12 93 11/23/17 04:09 139/88 11/23/17 04:05 125 11/23/17 03:45 123 19 95 11/23/17 03:30 123 16 144/90 95 11/23/17 03:22 150/95 11/23/17 03:15 125 20 95 11/23/17 03:04 124 20 129/87 95 Room Air 11/23/17 03:00 123 21 95 11/23/17 02:50 122 18 154/108 98 Room Air 11/23/17 01:31 121 22 146/108 100 Room Air 11/23/17 01:02 136 28 142/97 100 Room Air 11/23/17 00:33 100 Room Air 11/23/17 00:32 100 Room Air 11/23/17 00:09 136 11/23/17 00:05 37.2 136 28 145/107 99 Room Air The patient is awake, alert and oriented 3, well developed and well nourished, normocephalic and atraumatic, lying in bed and in no acute distress. HEENT--PERRL, EOMI, mucous membranes and oropharynx dry. Neck--supple. No JVD. No bruits. Thyroid normal, trachea midline, no adenopathy. Heart--normal S1 and S2. No murmurs, rubs or gallops. Lungs--mildly decreased breath sounds left base, no respiratory distress, no accessory muscle use. Abdomen--normal bowel sounds and soft. Nontender. Nondistended, no hernias or masses, no organomegaly. Extremities--no cyanosis or clubbing. No edema. There are good distal pulses b/ l. Dermatologic--normal skin turgor, normal color, no abnormal lymph nodes, no rash. Neurologic--cranial nerves II through XII grossly intact. Rheumatologic--normal range of motion. Psychiatric--flat affect. Diagnostics Laboratory Results Results Past 24 Hours Test 11/23/17 00:57 11/23/17 04:00 11/23/17 05:23 Range/Units White Blood Count 11.99 4.8-10.8 K/uL Red Blood Count 3.72 4.2-5.4 M/uL Hemoglobin 10.5 12.0-16.0 g/dL Hematocrit 31.9 37-47 % Mean Corpuscular Volume 85.8 80-100 fL Mean Corpuscular Hemoglobin 28.2 25-34 pg Mean Corpuscular Hemoglobin Concent 32.9 32-36 g/dl Platelet Count 186 130-400 K/uL Mean Platelet Volume 9.7 7.4-10.4 fL Neutrophils (%) (Auto) 81.5 % Lymphocytes (%) (Auto) 12.4 % Monocytes (%) (Auto) 5.6 % Eosinophils (%) (Auto) 0.2 % Basophils (%) (Auto) 0.0 % Neutrophils # (Auto) 9.77 1.4-6.5 K/uL Lymphocytes # (Auto) 1.49 1.2-3.4 K/uL Monocytes # (Auto) 0.67 0.11-0.59 K/uL Eosinophils # (Auto) 0.02 0-0.5 K/uL Basophils # (Auto) 0.00 0-0.2 K/uL RDW Standard Deviation 46.0 36.4-46.3 fL RDW Coefficient of Variation 14.7 11.5-14.5 % Immature Granulocyte % (Auto) 0.3 % Immature Granulocyte # (Auto) 0.04 0.00-0.02 K/uL Sodium Level 140 136-145 mmol/L Potassium Level 4.0 3.5-5.1 mmol/L Chloride Level 110 98-107 mmol/L Carbon Dioxide Level 21 21-32 mmol/L Anion Gap 9.0 3-11 mmol/L Blood Urea Nitrogen 11 7-18 mg/dl Creatinine 1.13 0.60-1.20 mg/dl Estimated GFR () 79.3 Estimated GFR (Non- 68.5 BUN/Creatinine Ratio 9.9 10-20 Random Glucose 134 70-99 mg/dl Calcium Level 9.1 8.5-10.1 mg/dl Total Bilirubin 0.2 0.2-1 mg/dl Direct Bilirubin < 0.1 0-0.2 mg/dl Aspartate Amino Transf (AST/SGOT) 20 15-37 U/L Alanine Aminotransferase (ALT/SGPT) 27 12-78 U/L Alkaline Phosphatase 95 45-117 U/L Total Creatine Kinase 78 26-192 U/L Troponin I 0.130 0-0.045 ng/ml Total Protein 7.3 6.4-8.2 gm/dl Albumin 3.9 3.4-5.0 gm/dl Lipase 105 73-393 U/L Human Chorionic Gonadotropin, Qual NEG NEG Urine Opiates Screen NEG NEG Urine Methadone, Qualitative NEG NEG Urine Barbiturates NEG NEG Urine Phencyclidine (PCP) Level NEG NEG Ur Amphetamine/Methamphetamine NEG NEG MDMA (Ecstasy) Screen NEG NEG Urine Benzodiazepines Screen POS NEG Urine Cocaine Metabolite NEG NEG Urine Marijuana (THC) NEG NEG Diagnostic Radiology Chest x-ray is normal EKG EKG shows sinus tachycardia at 133 bpm, with no significant change compared to 11/18/2017 Impression Assessment and Plan Heroine Overdose/unresponsive state-- Patient reportedly swallowed an unknown amount of heroine orally to get high She was found by her mother, after being down for an unknown period of time, who did CPR. Police gave 8 mg of Narcan, and the patient reportedly immediately responded. In the emergency department patient reportedly was yelling and screaming upon first arrival, and primary complaint was that of chest pain. At the time of my examination, the patient was asleep, and easily aroused to voice, and was readily able to communicate. Consult psychiatry Elevated troponin/sinus tachycardia 133 bpm-- Elevated troponin may be secondary to CPR and or rapid heart rate. The patient will be admitted to telemetry for serial cardiac enzymes, serial EKG's, cardiac rhythm monitoring and a 2-D echocardiogram with Dopplers. We'll see how patient responds to fluid rehydration Consult cardiology Left lower lobe pneumonia/probable aspiration-- Given clindamycin in the ED. Place on ceftriaxone 1 g IV daily and clindamycin 900 mg IV every 8 hours Follow clinical examination Level of Care Telemetry Advanced Directives Existing Advance Directive: No Existing Living Will: No Existing Power of Jai Alai Player: No Resuscitation Status FULL RESUSCITATION VTE Prophylaxis VTE Risk Assessment Done? Y/N: Yes Risk Level: Moderate Given or contraindicated: SCD's
--- NOTE | 2017-11-23 06:46 | DIAGNOSTIC IMAGING REPORT ---
CHEST ONE VIEW PORTABLE CLINICAL HISTORY: Chest pain. COMPARISON STUDY: Chest radiograph November 17, 2017. FINDINGS: Lung volumes are normal. Lungs are clear. No pneumothorax or pleural effusion is noted. Cardiomediastinal silhouette is normal. Pulmonary vascularity is normal. IMPRESSION: No acute cardiopulmonary findings. Electronically signed by: Jordan Delgado M.D. 11/23/2017 6:45 AM Dictated Date/Time: 11/23/2017 6:44 AM
--- NOTE | 2017-11-23 06:49 | DIAGNOSTIC IMAGING REPORT ---
CT OF THE CHEST WITH IV CONTRAST CLINICAL HISTORY: Power overdose. Intractable chest pain status post chest compressions. COMPARISON STUDY: Chest x-ray dated 11/23/2017 TECHNIQUE: Following the IV administration of 118 mL of [id number]-320, CT of the thorax was performed from the thoracic inlet to the lung bases. Images are reviewed in the axial, sagittal, and coronal planes. IV contrast was administered without complication. A dose lowering technique was utilized adhering to the principles of ALARA. CT DOSE: 190.97 mGy.cm FINDINGS: Thyroid: Imaged portions of the thyroid gland are normal in appearance. Thoracic aorta: The thoracic aorta is normal in course and caliber, noting standard 3-vessel arch anatomy. No aneurysm or dissection is seen. Pulmonary vasculature: The pulmonary trunk is normal in caliber. There are no central filling defects identified to suggest pulmonary embolus. Note that this examination was not protocoled for the evaluation of pulmonary emboli. HEART: The heart is normal in size and configuration, without pericardial effusion. Lungs and pleural spaces: There is a 6 mm groundglass nodule within the the right middle lobe. There are patchy airspace opacities within the left lower lobe suspicious for a pneumonitis, or aspiration.. Mediastinum: There is no mediastinal lymphadenopathy. Luz Marina: There is no evidence of pathologic hilar adenopathy Axilla: There is no evidence of pathologic axillary lymphadenopathy Upper abdomen: Partially visualized upper abdominal viscera is within normal limits. Skeletal structures: There are no lytic or blastic osseous lesions. No fractures are visualized. IMPRESSION: 1. Bilateral groundglass opacities, most pronounced within the left lower lobe. The findings are suspicious for a pneumonitis or aspiration. Clinical follow-up is advocated. 2. No evidence of pneumothorax. No rib fractures are visualized. Electronically signed by: Tab Trinh M.D. 11/23/2017 6:48 AM Dictated Date/Time: 11/23/2017 6:43 AM
[2017-11-23] MEDS ORDERED: CEFTRIAXONE SOD INJ 1 GM in DEXTROSE 5% ADD-VANTAGE 50ML 50 ML IV SCH (08:00)
[2017-11-23] MEDS ORDERED: NSS + 20MEQ KCL 1000ML 1,000 ML IV SCH (08:15)
[2017-11-23] MEDS: ALPRAZOLAM 0.5 MG TAB PO SCH ×3 (10:40→19:48)
[2017-11-23] MEDS: BusPIRone 15 MG TAB PO SCH ×3 (10:41→19:47)
[2017-11-23] MEDS: SERTRALINE HCL 100 MG TAB PO SCH (10:41)
[2017-11-23] MEDS: ASPIRIN 81 MG ECTAB PO SCH (10:41)
[2017-11-23] MEDS ORDERED: LIDODERM (LIDOCAINE) PATCH 5% TD ONE (11:56)
[2017-11-23] MEDS ORDERED: CLINDAMYCIN IV 900 MG in DEXTROSE 5% 100ML 100 ML IV SCH (12:00)
--- NOTE | 2017-11-23 13:36 | Psychiatric Consultation ---
Psychiatric Consultation Date of Service: Nov 23, 2017. Consult requested to evaluate status post overdose of heroin. HPI: 22-year-old woman known to our unit from a brief stay from November 18 through November 20. At that time she been in the emergency department requesting pain medications and when she didn't get them, made a suicidal statement. She further continued to try to get narcotics while on our unit by claiming she was having severe pain with kidney stones which did not end up being the case. After that she quickly calmed down, her symptoms resolved and she wants to be discharged. Family meeting was held with her mother who told her that she would allow her to come home this time however if she ended up in the hospital because of drugs again she would demand that she go to rehabilitation. The patient was brought to the ER after having overdosed on po heroin. Apparently she fell unconscious while at home, was unresponsive, mother initiated CPR. She was given Narcan in route to the hospital by EMS which was successful. At the time I see her today, she is full of shame and guilt about her behaviors. She said that her boyfriend had brought her 2 capsules of heroin and she had been taking "bumps" all day to keep her high going but didn' t think she taken enough to overdose. She theorizes that using the heroin in combination with her Xanax was what caused her to lose consciousness. She is ashamed, sorry for what everybody had to go through. She is willing to go to rehabilitation today but is being very selective in terms of what rehabilitation she'll go to. She had previously been at [facility] in [facility] in June of last year, left 3 days early because she felt she was having kidney stones, and immediately relapsed. She would like to return there but she has had a change of insurance from [employer] to [employer] and doesn't know whether or not it's in network. She is also concerned about her relationship with her parents who she describes as controlling. She would like to be treated more like an adult but we have an honest conversation that she is going to have to earn their trust back in view of her recent series of poor decisions. She reports that her mood since being discharged from the mental health unit has been "great" and she felt that she was doing really well despite using heroin consistently. She denies that she took the heroin or any other substance in a suicide attempt. She denies suicidality today. Current Inpatient Medications Medications (Trade) Dose Ordered Sig/Thuan Route Start Time Stop Time Status Last Admin Dose Admin Ioversol (Optiray 320) 100 ml UD PRN IV 11/23/17 02:00 11/27/17 01:59 Acetaminophen (Tylenol Tab) 650 mg Q4H PRN PO 11/23/17 06:15 12/23/17 06:14 Nitroglycerin (Nitrostat Tab) 0.4 mg UD PRN SL 11/23/17 06:15 12/23/17 06:14 Aspirin (Ecotrin Tab) 81 mg QAM PO 11/23/17 09:00 12/23/17 08:59 11/23/17 10:41 81 MG Alprazolam (Xanax Tab) 0.5 mg TID PO 11/23/17 09:00 12/23/17 08:59 11/23/17 10:40 0.5 MG Buspirone HCl (BusPAR TAB) 15 mg TID PO 11/23/17 09:00 12/23/17 08:59 11/23/17 10:41 15 MG Diazepam (Valium Tab) 10 mg HS PO 11/23/17 21:00 12/23/17 20:59 Sertraline HCl (Zoloft Tab) 200 mg DAILY PO 11/23/17 09:00 12/23/17 08:59 11/23/17 10:41 200 MG Ondansetron HCl (Zofran Odt) 8 mg Q6H PRN PO 11/23/17 06:15 12/23/17 06:14 11/23/17 10:40 8 MG Lidocaine (Lidoderm Patch 5%) 1 patch QAM TD 11/24/17 09:00 12/24/17 08:59 Miscellaneous (Remove Lidoderm Patch) 1 ea DAILY@21 N/A 11/23/17 21:00 12/23/17 20:59 Ketorolac Tromethamine (Toradol Inj) 30 mg Q6H PRN IV 11/23/17 12:00 11/28/17 11:59 Amoxicillin/ Clavulanate Potassium (Augmentin Tab) 875 mg BIDM PO 11/23/17 16:45 11/30/17 16:44 Diphenhydramine HCl (Benadryl Cap) 50 mg NOW ONCE PO 11/23/17 13:00 11/23/17 13:01 UNV 11/23/17 00:57 Red Blood Count 3.72, Mean Corpuscular Volume 85.8, Mean Corpuscular Hemoglobin 28.2, Mean Corpuscular Hemoglobin Concent 32.9, Mean Platelet Volume 9.7, Neutrophils (%) (Auto) 81.5, Lymphocytes (%) (Auto) 12.4, Monocytes (%) (Auto) 5.6, Eosinophils (%) (Auto) 0.2, Basophils (%) (Auto) 0.0, Neutrophils # (Auto) 9.77, Lymphocytes # (Auto) 1.49, Monocytes # (Auto) 0.67, Eosinophils # (Auto) 0.02, Basophils # (Auto) 0.00 11/23/17 00:57 Test 11/23/17 00:57 11/23/17 04:00 11/23/17 08:50 White Blood Count 11.99 K/uL (4.8-10.8) Red Blood Count 3.72 M/uL (4.2-5.4) Hemoglobin 10.5 g/dL (12.0-16.0) Hematocrit 31.9 % (37-47) Mean Corpuscular Volume 85.8 fL (80-100) Mean Corpuscular Hemoglobin 28.2 pg (25-34) Mean Corpuscular Hemoglobin Concent 32.9 g/dl (32-36) Platelet Count 186 K/uL (130-400) Mean Platelet Volume 9.7 fL (7.4-10.4) Neutrophils (%) (Auto) 81.5 % Lymphocytes (%) (Auto) 12.4 % Monocytes (%) (Auto) 5.6 % Eosinophils (%) (Auto) 0.2 % Basophils (%) (Auto) 0.0 % Neutrophils # (Auto) 9.77 K/uL (1.4-6.5) Lymphocytes # (Auto) 1.49 K/uL (1.2-3.4) Monocytes # (Auto) 0.67 K/uL (0.11-0.59) Eosinophils # (Auto) 0.02 K/uL (0-0.5) Basophils # (Auto) 0.00 K/uL (0-0.2) RDW Standard Deviation 46.0 fL (36.4-46.3) RDW Coefficient of Variation 14.7 % (11.5-14.5) Immature Granulocyte % (Auto) 0.3 % Immature Granulocyte # (Auto) 0.04 K/uL (0.00-0.02) Anion Gap 9.0 mmol/L (3-11) Estimated GFR () 79.3 Estimated GFR (Non- 68.5 BUN/Creatinine Ratio 9.9 (10-20) Calcium Level 9.1 mg/dl (8.5-10.1) Total Bilirubin 0.2 mg/dl (0.2-1) Direct Bilirubin < 0.1 mg/dl (0-0.2) Aspartate Amino Transf (AST/SGOT) 20 U/L (15-37) Alanine Aminotransferase (ALT/SGPT) 27 U/L (12-78) Alkaline Phosphatase 95 U/L (45-117) Total Creatine Kinase 78 U/L (26-192) Total Protein 7.3 gm/dl (6.4-8.2) Albumin 3.9 gm/dl (3.4-5.0) Lipase 105 U/L (73-393) Human Chorionic Gonadotropin, Qual NEG (NEG) Urine Color YELLOW Urine Appearance CLEAR (CLEAR) Urine pH 7.0 (4.5-7.5) Urine Specific [place] > 1.045 (1.000-1.030) Urine Protein NEG (NEG) Urine Glucose (UA) 2+ (NEG) Urine Ketones 1+ (NEG) Urine Occult Blood 1+ (NEG) Urine Nitrite NEG (NEG) Urine Bilirubin NEG (NEG) Urine Urobilinogen NEG (NEG) Urine Leukocyte Esterase TRACE (NEG) Urine WBC (Auto) 1-5 /hpf (0-5) Urine RBC (Auto) 0-4 /hpf (0-4) Urine Hyaline Casts (Auto) 1-5 /lpf (0-5) Urine Epithelial Cells (Auto) >30 /lpf (0-5) Urine Bacteria (Auto) NEG (NEG) Urine Opiates Screen NEG (NEG) Urine Methadone, Qualitative NEG (NEG) Urine Barbiturates NEG (NEG) Urine Phencyclidine (PCP) Level NEG (NEG) Ur Amphetamine/Methamphetamine NEG (NEG) MDMA (Ecstasy) Screen NEG (NEG) Urine Benzodiazepines Screen POS (NEG) Urine Cocaine Metabolite NEG (NEG) Urine Marijuana (THC) NEG (NEG) Troponin I 0.082 ng/ml (0-0.045) (1) Aspiration pneumonia (2) Chest wall pain (3) Elevated troponin (4) Heroin overdose A/P: 1. S/P overdose-the overdose was recreational. She denies suicidality and therefore is not in need of any mental health treatment acutely. 2. Opiate dependence- recommend inpatient rehabilitation. I have had a liz discussion with her that she is lexy to be alive at this point given the fact her mother initiated CPR. She would like to go to the facility in [place]. I have talked with Arthur in Social Service who will follow up with the patient. Dr. Rosalva Suarez has personally been involved in review of the above case and development of these recommendations. I spoke with provider to question level of service as no separate MSE sections, comments re: mental status are peppered throughout. Re-confirmed that the patient is denying active psychiatric symptoms outside of her addiction and the heroin use was recreational, ie not a suicide attempt. In that vein, I agree that she doesn't meet criteria for inpatient psychiatric admission and she is agreeing to the most appropriate level of care, inpatient rehab though she may be waffling a bit by limiting facility preference.
[2017-11-23] MEDS: AMOXICILLIN/CLAVULANATE TAB 875 MG TAB PO SCH (16:16)
[2017-11-23] MEDS ORDERED: CLONIDINE HCL 0.1 MG TAB PO PRN (16:30)
[2017-11-23] MEDS: KETOROLAC TROMETHAMINE 30 MG/ML VIAL IV PRN ×2 (16:35→23:24)
--- NOTE | 2017-11-23 17:11 | ECHOCARDIOGRAM REPORT ---
*NOTICE TO RECEIVING LIBERTARIAN AGENCY This information is strictly Confidential and protected under [place] law. [place] law prohibits you from making any further disclosure of this information unless further disclosure is expressly permitted by the written consent of the person to whom it pertains or is authorized by law. A general authorization for the release of medical or other information is not sufficient for this purpose. Hospital accepts no responsibility if the information is made available to any other person, INCLUDING THE PATIENT. Interpretation Summary * Name: BAKARI ALVAREZ Study Date: 11/23/2017 02:28 PM BP: 93/61 mmHg * Patient Location: C.2T\S\E218\S\1 HR: 75 * : 1995 (M/d/yyyy) Gender: Female Height: 64 in * Age: 22 yrs Ethnicity: CA Weight: 143 lb * Ordering Physician: Lg Lyman * Referring Physician: Self, Referred * Performed By: Portia Freeman RDCS * * Reason For Study: ELEVATED TROPONIN, S/P CPR AT HOME * BSA: 1.7 m2 * -- Conclusions -- * Left ventricular systolic function is normal. * No regional wall motion abnormalities noted. * Ejection Fraction = 60-65%. * No significant valvular pathology. Procedure Details * A complete two-dimensional transthoracic echocardiogram was performed (2D, M-mode, Doppler and color flow Doppler). Left Ventricle * The left ventricle is normal in size. * There is normal left ventricular wall thickness. * Ejection Fraction = 60-65%. * Left ventricular systolic function is normal. * No regional wall motion abnormalities noted. Right Ventricle * The right ventricular cavity size is normal (basal dimension <4.2 cm in right ventricular apical 4-chamber view). * The right ventricular systolic function is normal as assessed by tricuspid annular plane systolic excursion (TAPSE) (normal >1.5 cm). Atria * The left atrial size is normal. * Right atrial size is normal. * No ASD detected; PFO is not assessed. Mitral Valve * The mitral valve anatomy is normal. * There is no mitral valve stenosis. * Significant mitral regurgitation is absent. Tricuspid Valve * The tricuspid valve anatomy is normal. * Tricuspid stenosis is absent. * Significant tricuspid regurgitation is absent. Aortic Valve * The aortic valve is normal in structure and function. * Aortic stenosis is absent. * No aortic regurgitation is present. Pulmonic Valve * The pulmonary valve is not well seen, but the Doppler examination is normal without significant regurgitation or stenosis. Great Vessels * The aortic root is normal size. * The pulmonary artery is not well visualized, but is probably normal size. Pericardium/Pleural * There is no pericardial effusion. Great Vessels * Normal inferior vena cava size and collapsability with sniff indicates a normal right atrial pressure of 3 mmHg MMode 2D Measurements and Calculations IVSd 0.67 cm IVSs 1.2 cm LVIDd 4.0 cm LVIDs 2.7 cm LVPWd 0.80 cm LVPWs 1.4 cm IVS/LVPW 0.84 FS 33.6 % EDV(Teich) 69.8 ml ESV(Teich) 25.9 ml EF(Teich) 62.9 % EDV(cubed) 63.8 ml ESV(cubed) 18.7 ml EF(cubed) 70.7 % % IVS thick 80.5 % % LVPW thick 71.9 % LV mass(C)d 83.1 grams LV mass(C)dI 49.0 grams/m\S\2 LV mass(C)s 104.2 grams LV mass(C)sI 61.5 grams/m\S\2 SV(Teich) 43.9 ml SI(Teich) 25.9 ml/m\S\2 SV(cubed) 45.1 ml SI(cubed) 26.6 ml/m\S\2 Ao root diam 2.4 cm Ao root area 4.5 cm\S\2 LA dimension 3.2 cm LA/Ao 1.3 LVAd ap4 25.8 cm\S\2 LVLd ap4 8.2 cm EDV(MOD-sp4) 68.6 ml EDV(sp4-el) 68.7 ml LVAs ap4 13.6 cm\S\2 LVLs ap4 6.5 cm ESV(MOD-sp4) 23.5 ml ESV(sp4-el) 24.3 ml EF(MOD-sp4) 65.8 % EF(sp4-el) 64.7 % LVAd ap2 27.6 cm\S\2 LVLd ap2 8.2 cm EDV(MOD-sp2) 75.6 ml EDV(sp2-el) 79.0 ml LVAs ap2 15.2 cm\S\2 LVLs ap2 6.8 cm ESV(MOD-sp2) 30.4 ml ESV(sp2-el) 28.8 ml EF(MOD-sp2) 59.7 % EF(sp2-el) 63.5 % LVLd %diff -0.38 % EDV(MOD-bp) 72.7 ml LVLs %diff 4.2 % ESV(MOD-bp) 27.2 ml EF(MOD-bp) 62.5 % SV(MOD-sp4) 45.2 ml SI(MOD-sp4) 26.6 ml/m\S\2 SV(MOD-sp2) 45.1 ml SI(MOD-sp2) 26.6 ml/m\S\2 SV(MOD-bp) 45.4 ml SI(MOD-bp) 26.8 ml/m\S\2 SV(sp4-el) 44.5 ml SI(sp4-el) 26.2 ml/m\S\2 SV(sp2-el) 50.2 ml SI(sp2-el) 29.6 ml/m\S\2 Doppler Measurements and Calculations MV E max abilio 112.7 cm/sec MV dec time 0.20 sec Ao V2 max 129.8 cm/sec Ao max PG 6.7 mmHg Ao max PG (full) 3.0 mmHg LV V1 max PG 3.7 mmHg LV V1 max 96.2 cm/sec
--- NOTE | 2017-11-23 17:19 | Progress Note ---
Progress Note Date of Service Nov 23, 2017. Progress Note seen in f/u from early AM admission some sternal and b/l lower chest pain a little sob/porras no confusion feels ashamed of her actions and grateful to be alive reiterates absolutely not attempted overdose, entirely w goal of getting high - right now is motivated to never use again vitals noted nad breathing unlabored w very faint base rales and coarse BS at bases heroin overdose -mom performed CPR, called 911, narcan given - likely these actions prevented anoxic injury or -now stable chest pain -from compressions and likely a bit pleuritic from aspiration -lidocaine patch -toradol prn (later revisited and will add tylenol prn) aspiration pneumonitis -change to PO augmentin -stable anxiety -baseline anxiety and ?elements of withdrawal -clonidine per psych -gave prn benadryl as well elevated troponin -almost certainly due to chest compressions -repeat was lower -await echo DVT proph -ambulation dispo - med surg today, likely home tomorrow
[2017-11-23] MEDS: DIAZEPAM 5MG TAB PO SCH (21:29)
[2017-11-24] MEDS: KETOROLAC TROMETHAMINE 30 MG/ML VIAL IV PRN ×3 (05:40→18:44)
[2017-11-24 07:40] VITALS: BP 82/47; PULSE 91; TEMP 36.9; O2SAT 99
[2017-11-24] MEDS ORDERED: LIDODERM (LIDOCAINE) PATCH 5% TD SCH (08:00)
[2017-11-24] MEDS: ASPIRIN 81 MG ECTAB PO SCH (09:01)
[2017-11-24] MEDS: BusPIRone 15 MG TAB PO SCH ×3 (09:01→20:00)
[2017-11-24] MEDS: AMOXICILLIN/CLAVULANATE TAB 875 MG TAB PO SCH ×2 (09:01→17:30)
[2017-11-24] MEDS: SERTRALINE HCL 100 MG TAB PO SCH (09:01)
[2017-11-24] MEDS: ALPRAZOLAM 0.5 MG TAB PO SCH ×3 (09:01→20:00)
[2017-11-24 09:37] LABS: INR 0.9 (0.9-1.1)
[2017-11-24 10:08] LABS: HEMATOCRIT 30.7 % (37-47); HEMOGLOBIN 9.9 g/dL (12.0-16.0); MEAN CELL VOLUME 87.5 fL (80-100); MEAN CORPUSCULAR HEMOGLOBIN 28.2 pg (25-34); MEAN CORPUSCULAR HGB CONC 32.2 g/dl (32-36); MEAN PLATELET VOLUME 10.1 fL (7.4-10.4); PLATELET COUNT 160 K/uL (130-400); RED CELL DISTRIBUTION WIDTH CV 15.1 % (11.5-14.5); RED CELL DISTRIBUTION WIDTH SD 48.7 fL (36.4-46.3); WHITE BLOOD COUNT 4.94 K/uL (4.8-10.8)
[2017-11-24 10:14] LABS: BASO % 0.2 %; BASO ABS # 0.01 K/uL (0-0.2); EOS % 1.8 %; EOS ABS # 0.09 K/uL (0-0.5); IG# 0.01 K/uL (0.00-0.02); LYMPH ABS # 2.67 K/uL (1.2-3.4); MONO % 6.9 %; MONO ABS # 0.34 K/uL (0.11-0.59); NEUT % 36.9 %; NEUT ABS # 1.82 K/uL (1.4-6.5)
[2017-11-24 10:18] LABS: CALCIUM 8.7 mg/dl (8.5-10.1); CREATININE 0.67 mg/dl (0.60-1.20); POTASSIUM 4.2 mmol/L (3.5-5.1)
[2017-11-24 10:52] VITALS: BP 96/60; PULSE 87; TEMP 37; O2SAT 100
[2017-11-24 15:06] VITALS: BP 115/77; PULSE 89; TEMP 36.7; O2SAT 99
--- NOTE | 2017-11-24 18:17 | Progress Note ---
Subjective Date of Service: Nov 24, 2017. Subjective Pt evaluation today including: conversation w/ patient, physical exam, chart review, review of inpatient medication list chest pain persists, sob a little worse but seems more related to chest pain causing dypsnea and anxiety per pt no other new complaints for rehab - willing to go to rehab in [place]. apparently parents aren't happy with this decision, parents also called [facility] to discuss if pt could be involuntarily committed no other new complaints. Problem List Medical Problems: (1) Acute anxiety Status: Acute (2) Acute foreign body of left upper arm Status: Acute (3) Anxiety Status: Acute (4) Aspiration pneumonia Status: Acute (5) Chest wall pain Status: Acute (6) Depression Status: Acute (7) Drug-seeking behavior Status: Acute (8) Elevated troponin Status: Acute (9) Embedded foreign body Status: Acute (10) Heroin overdose Status: Acute (11) Non-cardiac chest pain Status: Acute (12) Right flank pain Status: Acute (13) Suicidal ideation Status: Acute Review of Systems all other ROS otherwise negative except for as above Objective Vital Signs Date Time Temp Pulse Resp B/P (MAP) Pulse Ox O2 Delivery O2 Flow Rate FiO2 11/24/17 16:00 Room Air 11/24/17 15:06 36.7 89 16 115/77 (90) 99 Room Air 11/24/17 10:52 37.0 87 18 96/60 (72) 100 Room Air 11/24/17 08:00 Room Air 11/24/17 07:40 36.9 91 16 82/47 (59) 99 Room Air 11/23/17 23:18 36.3 89 18 86/47 (60) 97 Room Air 11/23/17 19:30 Room Air 11/23/17 18:29 36.6 104 18 87/53 (64) 98 Room Air Physical Exam General Appearance: no apparent distress (appearing anxious and then with discussions on planning she calms) Eyes: EOMI ENT: hearing grossly normal Neck: trachea midline Respiratory/Chest: lungs clear, normal breath sounds (base rales from yesterday have cleared), no respiratory distress, no accessory muscle use Extremities: normal range of motion Neurologic/Psychiatric: washhouse hand II-XII nml as tested, alert, + pertinent finding ( anxious) Skin: normal color, warm/dry Laboratory Results Last 24 Hours Test 11/24/17 08:55 White Blood Count 4.94 K/uL Red Blood Count 3.51 M/uL Hemoglobin 9.9 g/dL Hematocrit 30.7 % Mean Corpuscular Volume 87.5 fL Mean Corpuscular Hemoglobin 28.2 pg Mean Corpuscular Hemoglobin Concent 32.2 g/dl Platelet Count 160 K/uL Mean Platelet Volume 10.1 fL Neutrophils (%) (Auto) 36.9 % Lymphocytes (%) (Auto) 54.0 % Monocytes (%) (Auto) 6.9 % Eosinophils (%) (Auto) 1.8 % Basophils (%) (Auto) 0.2 % Neutrophils # (Auto) 1.82 K/uL Lymphocytes # (Auto) 2.67 K/uL Monocytes # (Auto) 0.34 K/uL Eosinophils # (Auto) 0.09 K/uL Basophils # (Auto) 0.01 K/uL RDW Standard Deviation 48.7 fL RDW Coefficient of Variation 15.1 % Immature Granulocyte % (Auto) 0.2 % Immature Granulocyte # (Auto) 0.01 K/uL Red Blood Cell Morphology Unremarkable Prothrombin Time 9.8 SECONDS Prothromb Time International Ratio 0.9 Sodium Level 141 mmol/L Potassium Level 4.2 mmol/L Chloride Level 109 mmol/L Carbon Dioxide Level 26 mmol/L Anion Gap 6.0 mmol/L Blood Urea Nitrogen 10 mg/dl Creatinine 0.67 mg/dl Est Creatinine Clear Calc Drug Dose 112.8 ml/min Estimated GFR () 143.6 Estimated GFR (Non- 123.9 BUN/Creatinine Ratio 15.0 Random Glucose 105 mg/dl Calcium Level 8.7 mg/dl Magnesium Level 1.9 mg/dl Assessment and Plan heroin overdose -mom performed CPR, called 911, narcan given - likely these actions prevented anoxic injury or -now stable chest pain -from compressions and likely a bit pleuritic from aspiration -lidocaine patch -toradol prn -tylenol prn aspiration pneumonitis -changed to PO augmentin -stable anxiety -baseline anxiety and ?elements of withdrawal -clonidine per psych -gave prn benadryl as well sob -likely multifactorial but pain from chest compressions and anxiety appear to be far bigger contributors than pneumonitis at this time given vitals and lung exam elevated troponin -almost certainly due to chest compressions -repeat was lower -echo reassuring DVT proph -ambulation dispo - rehab tomorrow. given risk of relapse and near deadly situation at this admission, while it is not legal/possible for involuntary commitment as parents were seeking, it does appear most safe to have discharge straight from here to rehab since it is arranged
[2017-11-24] MEDS: DIAZEPAM 5MG TAB PO SCH (22:19)
[2017-11-25 00:21] VITALS: BP 106/70; PULSE 88; TEMP 36.3; O2SAT 99
[2017-11-25] MEDS: KETOROLAC TROMETHAMINE 30 MG/ML VIAL IV PRN ×2 (01:56→08:08)
[2017-11-25 07:13] LABS: BASO % 0.2 %; BASO ABS # 0.01 K/uL (0-0.2); HEMATOCRIT 29.6 % (37-47); HEMOGLOBIN 9.9 g/dL (12.0-16.0); IG# 0.02 K/uL (0.00-0.02); LYMPH % 48.3 %; LYMPH ABS # 2.43 K/uL (1.2-3.4); MEAN CELL VOLUME 86.5 fL (80-100); MEAN CORPUSCULAR HEMOGLOBIN 28.9 pg (25-34); MEAN CORPUSCULAR HGB CONC 33.4 g/dl (32-36); NEUT % 43.1 %; NEUT ABS # 2.17 K/uL (1.4-6.5); PLATELET COUNT 188 K/uL (130-400); RED CELL DISTRIBUTION WIDTH CV 14.7 % (11.5-14.5); RED CELL DISTRIBUTION WIDTH SD 46.1 fL (36.4-46.3); WHITE BLOOD COUNT 5.03 K/uL (4.8-10.8)
[2017-11-25 07:29] VITALS: BP 98/62; PULSE 95; TEMP 36.7; O2SAT 97
[2017-11-25 07:46] LABS: CALCIUM 8.8 mg/dl (8.5-10.1); CREATININE 0.59 mg/dl (0.60-1.20); POTASSIUM 4.3 mmol/L (3.5-5.1)
[2017-11-25] MEDS: SERTRALINE HCL 100 MG TAB PO SCH (08:08)
[2017-11-25] MEDS: ALPRAZOLAM 0.5 MG TAB PO SCH ×2 (08:08→13:10)
[2017-11-25] MEDS: ASPIRIN 81 MG ECTAB PO SCH (08:08)
[2017-11-25] MEDS: BusPIRone 15 MG TAB PO SCH ×2 (08:08→13:10)
[2017-11-25] MEDS: AMOXICILLIN/CLAVULANATE TAB 875 MG TAB PO SCH (08:08)
[2017-11-25] MEDS ORDERED: IBUP-1428 PO (10:11)
[2017-11-25] MEDS ORDERED: AMOX1TAB43 PO (10:11)
[2017-11-25] MEDS ORDERED: LDDP5 TD (10:11)
--- NOTE | 2017-11-25 10:25 | Discharge Instructions ---
Discharge Instructions Date of Service Nov 25, 2017. Admission Reason for Admission: Elevated Troponin, Heroin Overdose Discharge Discharge Diagnosis / Problem: heroin overdose Discharge Goals Goal(s): Diagnostic testing, Therapeutic intervention Activity Recommendations Activity Limitations: resume your previous activity . Instructions / Follow-Up Instructions / Follow-Up heroin overdose -fortunately you appear to have come through this without any lasting consequences. we applaud your decision to go to rehab, and hope sincerely that you are able to get the help you need to cease using drugs like this entirely. getting to know you over the last few days, my suspicion is that the anxiety you suffer from probably underlies a lot of your substance abuse issues; as you work through counselling for drug use, i would ask that you also work with the team to develop non-medical ways to work through, cope with, and even at times ignore (when appropriate) the feelings of anxiety. in my experience most medical treatment for anxiety (whether prescribed or "self-medicating") is only a small part of what causes improvements - and in general it is learning what provokes your anxiety, and either changing life circumstances or thought processes that helps get you through it. -this current overdose really could have killed you. while substance abuse can be a difficult issue to get away from, remember that in the back of your mind, this was an EXTREMELY near miss as far as ending your life, and one that unfortunately we see all the time and could easily happen should you use again. we say that not to "fear monger" but really out of a sincere concern for your well being aspiration event -when you were out from the overdose, it appears that some vomit got into your lungs. this commonly happens in such events. it appears to be clearing up nicely, without a "true pneumonia" to show for it -- another 3 1/2 days of antibiotics (amoxicillin/clavulanate) will allow your body to clear this and it' s quite unlikely that a pneumonia will develop. should you spike a fever, have a wet/mucous filled cough, etc - we'd certainly want you evaluated for a developing pneumonia, but these things are quite unlikely to occur. while shortness of breath does come with a pneumonia, because of your anxiety and sternal/rib pain, shortness of breath will be one of the least reliable symptoms (unless it also comes with low oxygen levels) elevated troponin -troponin is a heart enzyme that becomes elevated in the bloodstream with there is stress, strain, or damage to the heart. fortunately your levels were minimally elevated at the worst, quickly trended down, and your echocardiogram ( ultrasound of your heart) looked normal. the elevation in troponin appears to have been nothing more than a "lab abnormality" subsequent to the CPR that probably saved your life. we expect zero mcc consequence from this chest pain -your sternal and rib pain appears related to bruising from CPR - this is common , and again, is really a necessary "fallout" from steps taken to save your life. we're treating with the lidocaine patch (i've written a prescription to continue this, frequently the 5% prescription strength is not covered by insurance, but the over the counter is actually a 4% patch and would serve as a very reasonable substitute) and we recommend continuing an anti-inflammatory ( ibuprofen 800mg up to three times a day as needed for pain, take with food) for the next several days. moving more and deep breathing also (while it can be painful to do) helps stretch the rib muscles more and improve the overall course of the pain more quickly. if the pain persists beyond a week or so, the most common reason for this would be from tight muscles between the ribs (which is often best treated with stretches, deep breathing, and sometimes hands-on treatments from a D.O. or chiropractor) anxiety -as noted above, in the little i've gotten to know you it really does appear that the anxiety is a driving factor for what has you abusing drugs. and to reiterate the above, anxiety is usually not a problem that doctors and therapists can "fix" for you, it generally is something we can help "splint" a bit with medications and techniques, but often the real "fix" comes from looking at what is causing the anxiety and working to alter your circumstances and/or your thought processes as it relates to your anxiety. as you work through the rehab process, definitely as the team at [facility] to work with you for this as well, and over the joint terminal attack controller, focus a lot of your wellness efforts on reigning in this anxiety. Current Hospital Diet Patient's current hospital diet: Regular Diet Discharge Diet Recommended Diet: Regular Diet Pending Studies Studies pending at discharge: no Medical Emergencies . Who to Call and When: Medical Emergencies: If at any time you feel your situation is an emergency, please call 911 immediately. . Non-Emergent Contact Non-Emergency issues call your: Primary Care Provider, Specialist (psychiatrist ) . . "Provider Documentation" section prepared by Pino Herrera. . VTE Core Measure Inpt VTE Proph given/why not?: SCD's
[2017-11-25 10:45] VITALS: BP 98/62; PULSE 95; TEMP 36.7; O2SAT 97
--- NOTE | 2017-11-25 11:35 | Psychiatric Progress Notes ---
Psychiatric Progress Note Date of Service Nov 25, 2017. Notes interim progress reviewed as patient's family has been in contact with liaison, patient remains agreeable to rehab placement and per liaison will be in route by noon. I did ensure that ROIs were obtained for her current outpatient providers as receiving benzos with active opiate abuse. Patient was maintained on benzos here as monitored and to prevent withdrawal while being managed with clonidine protocol. They will likely be tapered in rehab. I do not advise use of benzos in this patient given risk of due to respiratory depression. Xanax was tapered during her last inpatient stay. Ongoing concern about use of Valium, would defer to outpatient provider but obviously should be notified of stay/OD.
--- NOTE | 2017-11-25 19:23 | Discharge Summary ---
Discharge Summary Date of Service Nov 25, 2017. Discharge Summary Admission Date: Nov 23, 2017 at 06:04 Discharge Date: Nov 25, 2017 Discharge Disposition: Rehab (substance abuse rehab) Principal Diagnosis: heroin overdose Immunizations: Have You Had Influenza Vaccine: Unknown History of Tetanus Vaccine?: Unknown History of Pneumococcal: Unknown History of Hepatitis B Vaccine: Unknown Procedures: Interpretation Summary Name: BAKARI ALVAREZ Study Date: 11/23/2017 02:28 PM BP: 93/61 mmHg Patient Location: [facility]\S\[id number]\S\1 HR: 75 : 1995 (M/d/yyyy) Gender: Female Height: 64 in Age: 22 yrs Ethnicity: [place] Weight: 143 lb Ordering Physician: Lg Lyman Referring Physician: Self, Referred Performed By: Portia Freeman RDCS Reason For Study: ELEVATED TROPONIN, S/P CPR AT HOME BSA: 1.7 m2 -- Conclusions -- Left ventricular systolic function is normal. No regional wall motion abnormalities noted. Ejection Fraction = 60-65%. No significant valvular pathology. Procedure Details A complete two-dimensional transthoracic echocardiogram was performed (2D, M- mode, Doppler and color flow Doppler). Left Ventricle The left ventricle is normal in size. There is normal left ventricular wall thickness. Ejection Fraction = 60-65%. Left ventricular systolic function is normal. No regional wall motion abnormalities noted. Right Ventricle The right ventricular cavity size is normal (basal dimension <4.2 cm in right ventricular apical 4-chamber view). The right ventricular systolic function is normal as assessed by tricuspid annular plane systolic excursion (TAPSE) (normal >1.5 cm). Atria The left atrial size is normal. Right atrial size is normal. No ASD detected; PFO is not assessed. Mitral Valve The mitral valve anatomy is normal. There is no mitral valve stenosis. Significant mitral regurgitation is absent. Tricuspid Valve The tricuspid valve anatomy is normal. Tricuspid stenosis is absent. Significant tricuspid regurgitation is absent. Aortic Valve The aortic valve is normal in structure and function. Aortic stenosis is absent. No aortic regurgitation is present. Pulmonic Valve The pulmonary valve is not well seen, but the Doppler examination is normal without significant regurgitation or stenosis. Great Vessels The aortic root is normal size. The pulmonary artery is not well visualized, but is probably normal size. Pericardium/Pleural There is no pericardial effusion. Great Vessels Normal inferior vena cava size and collapsability with sniff indicates a normal right atrial pressure of 3 mmHg nominally elevated troponin CT OF THE CHEST WITH IV CONTRAST CLINICAL HISTORY: Power overdose. Intractable chest pain status post chest compressions. COMPARISON STUDY: Chest x-ray dated 11/23/2017 TECHNIQUE: Following the IV administration of 118 mL of [id number]-320, CT of the thorax was performed from the thoracic inlet to the lung bases. Images are reviewed in the axial, sagittal, and coronal planes. IV contrast was administered without complication. A dose lowering technique was utilized adhering to the principles of ALARA. CT DOSE: 190.97 mGy.cm FINDINGS: Thyroid: Imaged portions of the thyroid gland are normal in appearance. Thoracic aorta: The thoracic aorta is normal in course and caliber, noting standard 3-vessel arch anatomy. No aneurysm or dissection is seen. Pulmonary vasculature: The pulmonary trunk is normal in caliber. There are no central filling defects identified to suggest pulmonary embolus. Note that this examination was not protocoled for the evaluation of pulmonary emboli. HEART: The heart is normal in size and configuration, without pericardial effusion. Lungs and pleural spaces: There is a 6 mm groundglass nodule within the the right middle lobe. There are patchy airspace opacities within the left lower lobe suspicious for a pneumonitis, or aspiration.. Mediastinum: There is no mediastinal lymphadenopathy. Luz Marina: There is no evidence of pathologic hilar adenopathy Axilla: There is no evidence of pathologic axillary lymphadenopathy Upper abdomen: Partially visualized upper abdominal viscera is within normal limits. Skeletal structures: There are no lytic or blastic osseous lesions. No fractures are visualized. IMPRESSION: 1. Bilateral groundglass opacities, most pronounced within the left lower lobe. The findings are suspicious for a pneumonitis or aspiration. Clinical follow-up is advocated. 2. No evidence of pneumothorax. No rib fractures are visualized. Electronically signed by: Tab Trinh M.D. 11/23/2017 6:48 AM Dictated Date/Time: 11/23/2017 6:43 AM Last Resulted CBC 11/25/17 05:57 Red Blood Count 3.42, Mean Corpuscular Volume 86.5, Mean Corpuscular Hemoglobin 28.9, Mean Corpuscular Hemoglobin Concent 33.4, Mean Platelet Volume 10.0, Neutrophils (%) (Auto) 43.1, Lymphocytes (%) (Auto) 48.3, Monocytes (%) (Auto) 6.0, Eosinophils (%) (Auto) 2.0, Basophils (%) (Auto) 0.2, Neutrophils # (Auto) 2.17, Lymphocytes # (Auto) 2.43, Monocytes # (Auto) 0.30, Eosinophils # (Auto) 0.10, Basophils # (Auto) 0.01 Last Resulted BMP 11/25/17 05:57 Consultations: psychiatry Medication Reconciliation New Medications: Ibuprofen (Motrin) 800 Mg Tab 800 MG PO Q8H PRN for Pain, #15 TAB take with food Amoxicillin & Pot Clavulanate (Amoxicillin/Clavulanate P) 1 Tab Tab 875 MG PO BIDM, #7 TAB next dose in PM 11/25/17 Lidocaine (Lidocaine) 1 Patch Tdsy 1 PATCH TD QAM, #10 PATCH may substitute OTC 4% lidocaine patch if needed for coverage issues Continued Medications: Alprazolam (Xanax) 1 Mg Tab 0.5 MG PO TID, TAB Buspirone Hcl (Buspar) 15 Mg Tab 15 MG PO TID, TAB Diazepam (Valium) 10 Mg Tab 10 MG PO HS Sertraline (Zoloft) 100 Mg Tab 200 MG PO DAILY, TAB Trazodone Hcl (Trazodone) 50 Mg Tab 50 MG PO HS PRN for Sleep Hospital Course heroin overdose - accidental - no SI, and this was confirmed by multiple interviews and psych interviews -mom performed CPR, called 911, narcan given - likely these actions prevented anoxic injury or -now stable chest pain -from compressions and likely a bit pleuritic from aspiration -lidocaine patch -ibuprofen prn aspiration pneumonitis -changed to PO augmentin x 3.5 more days -stable anxiety -baseline anxiety seems fairly severe - encouraged her to work on this with water resources program director at rehab -suspect baseline benzo regimen not helping as well - likely some physical dependency/withdrawal cycles mimicking anxiety - d/w pt and mom in depth sob -likely multifactorial but pain from chest compressions and anxiety appearing the culprit at this time as clinically pneumonitis has almost resolved elevated troponin -almost certainly due to chest compressions -repeat was lower -echo reassuring DVT proph -ambulation dispo - rehab Total Time Spent: Greater than 30 minutes This includes examination of the patient, discharge planning, medication reconciliation, and communication with other providers. Discharge Instructions Please refer to the electronic Patient Visit Report (Discharge Instructions) for additional information.
== END 2017-11-25 13:15 | DRG 917 ==
LOC: EDBD 23:56 → C.EDC 23:57 → C.2T 11-23 06:04 → ENRESERV 11-23 06:28 → C.MS4W 11-23 18:27
PROVIDERS: ADMIT Hospitalist; ATTEND Family Medicine
DX: T40.1X1A Poisoning by heroin, accidental (unintentional), initial encounter (principal); J69.0 Pneumonitis due to inhalation of food and vomit; Z83.3 Family history of diabetes mellitus; Z82.49 Family history of ischemic heart disease and other diseases of the circulatory system; F11.10 Opioid abuse, uncomplicated; R07.9 Chest pain, unspecified; F41.9 Anxiety disorder, unspecified; R79.89 Other specified abnormal findings of blood chemistry